=== PATIENT | female | born 1950 | race Caucasian/White ===

== ENCOUNTER → 2017-09-05 | Outpatient (CLI) | payer MEDICARE, MEDICAID ==
[~2017-09-05] MED LIST: ACET500T68 PO; ALBU2.5V36 INH; ALBU5SOL17 NEB; ALBU8.5H IH; ALEN70TA43 PO; AMIT100T53 PO; AMIT150T21 PO; AMIT75TA42 PO; ASPI-1471 PO; ASPI-757 PO; ATOR-1 PO; AZIT-17 PO; BACI1TAB2 PO; BUPR-124 PO; BUPR-126 PO; CAR350 PO; CHOL500025 PO; CIPR-214; CIPR-344 PO; CLOB15OI16 TP; DEXL60CA6 PO; ESCI20TA38 PO; ESOM20CA31 PO; ESOM40CA42 PO; ESTR-26 PO; FLU180SY9 IM; FLU45SYR25 IM ONLY; FLUT1BLS3 PO; FLUT1DIS28 IH; FURO20TA19 PO; GUAI600T57 PO; HYDR-2966 PO; HYDR-319 PO; HYDR2TAB4 PO; HYDR2TAB74 PO; HYDR453.8 TP; IBUP1TAB PO; IBUP600T22 PO; IBUP800T37 PO; KETO120S13 TP; LEV125 PO; LEV137 PO; LEVO-3 PO; LEVO150T78 PO; LEVO500T83 PO; LEVO88TA45 PO; LINA145C PO; LOR1 PO; LORA-629 PO; LORA-630 PO; METH4TAB66 PO; MORP-1 PO; ONDA4TAB PO; OXYC5CAP21 PO; OXYC5TAB38 PO; OXYGENHOME INH; PREG300C14 PO; PREG75CA61 PO; PROM-110 PO; RANI-324 PO; SULF-198 PO; TAPE50TA10 PO; TIZA4CAP6 PO; TRIA15OI20 TP; VALE445C4 PO; [UNRECOGNIZED DRUG - CODE]; [UNRECOGNIZED DRUG - CODE] PO
[2017-09-05 11:35] LABS: PLATELET COUNT, AUTOMATED 307 K/uL (150-450)
--- NOTE | 2017-09-05 14:29 | RADIOLOGY IMAGING REPORT ---
FACILITY: [facility] PATIENT NAME: Shantell Barnes : 1950 MR: [id number] V: [id number] EXAM DATE: ORDERING PHYSICIAN: JOANN BOSTON TECHNOLOGIST: Location[place] [facility] [place] Patient: Shantell Barnes : 1950 Visit/Account:[id number] Date of Sevice: 09/05/2017 Exam type: CHEST PA AND LAT History: Contrast of breath, follow up bronchitis Comparison: April 22, 2017. And September 03, 2016 Findings: Chronic scarring in the lung bases again noted. There is however increased linear stranding now seen in the right middle lobe worrisome for atelectasis and or developing infiltrate. There is no eviden ce of pleural effusions. The cardiac silhouette is normal in size. Postsurgical changes lower cervi lisbeth spine. IMPRESSION: 1. Right basilar scarring similar to the prior study Increasing linear stranding the right middle lobe which may represent atelectasis and or developing i nfiltrate. Report Dictated By: Karlee Mandujano MD at 09/05/2017 2:24 PM Report E-Signed By: Karlee Mandujano MD at 09/05/2017 2:26 PM WSN:[id number]
== END ==
LOC: LAB 10:58
PROVIDERS: ATTEND Emergency Medicine
DX: J98.4 Other disorders of lung (principal); R05 Cough; R41.0 Disorientation, unspecified; E55.9 Vitamin D deficiency, unspecified
CPT/HCPCS: 36415; 71046; 81001; 82040; 82247; 82306; 82310; 82374; 82435; 82565; 82947; 84075; 84132; 84155; 84295; 84443; 84450; 84460; 84520; 85025

== ENCOUNTER → 2017-10-04 | Outpatient (CLI) | payer MEDICARE, MEDICAID ==
[~2017-10-04] MED LIST changes: +BUPR300T56 PO; +HYDR25CA13 PO; +IBUP-56 PO; +MULT-865 PO
--- NOTE | 2017-10-04 16:35 | RADIOLOGY IMAGING REPORT ---
FACILITY: [facility] PATIENT NAME: Shantell Barnes : 1950 MR: [id number] V: [id number] EXAM DATE: ORDERING PHYSICIAN: JOANN BOSTON TECHNOLOGIST: [place] [facility] [place] Patient: Shantell Barnes : 1950 Visit/Account:[id number] Date of Sevice: 10/04/2017 Examination: MR brain without contrast History: Memory loss Comparison: Head CT April 16, 2017 Technique: Multiplane MR imaging was performed through the brain without contrast. Findings: Diffusion: None Ventricles: Normal Midline shift: None Extraaxial fluid: None. Midline craniocervical structures: Normal Parenchyma: Greater than 10 scattered white matter high signal foci. Mild patchy high signal in the ashlee. Vascular flow voids: Normal Orbits and paranasal sinuses: Normal Impression: 1. Mild chronic small vessel ischemic change. 2. Otherwise normal brain MR. Report Dictated By: Galindo Vogel MD at 10/04/2017 4:22 PM Report E-Signed By: Galindo Vogel MD at 10/04/2017 4:32 PM WSN:[id number]
== END ==
LOC: MRI 01:22
PROVIDERS: ATTEND Emergency Medicine
DX: I67.82 Cerebral ischemia (principal)
CPT/HCPCS: 70551

== ENCOUNTER → 2017-10-10 | Outpatient (REF) | payer MEDICARE, MEDICAID ==
[~2017-10-10] MED LIST changes: +MEMA1TAB2 PO
== END ==
LOC: ZZSENDIN 14:47
PROVIDERS: ATTEND Family Medicine
DX: R82.90 Unspecified abnormal findings in urine (principal)
CPT/HCPCS: 81001

== ENCOUNTER 2018-02-25 16:51 | Emergency (ER) | payer MEDICARE, MEDICAID ==
[~2018-02-25 16:51] MED LIST changes: +DEN60I SUBQ; +DONE5TAB36 PO; +HYDR-4225 PO; +HYDR4TAB59 PO; +MEMA5TAB14 PO; +MONT10TA PO; +POLY17PO25 PO; -RANI-324 PO; +RANI-366 PO
[2018-02-25 16:54] VITALS: BP 109/69
--- NOTE | 2018-02-25 17:20 | ER Report ---
History and Physical Time Seen By MD: 17:14 Hx. of Stated Complaint: FALL 2 DAYS - UNABLE TO BEAR WEIGHT ON LEFT FOOT/ANKLE. HPI/ROS CHIEF COMPLAINT: ankle injury HISTORY OF PRESENT ILLNESS: This is a 67 year old female. She got her left foot/ ankle caught yesterday and twisted it. Can not bear weight since the injury. Swelling and bruising. Normal sensation and can move the foot and toes, but with pain. Pain throughout the foot and ankle. Allergies: Coded Allergies: amoxicillin (Verified Allergy, Mild, 02/25/18) Home Meds Active Scripts Pregabalin (LYRICA) 300 Mg Capsule, 1 CAP PO BID, #180 CAPSULE 0 Refills Prov:SHAMEKA JEFFERSON MD 01/09/18 Montelukast Sodium (SINGULAIR) 10 Mg Tablet, 1 TAB PO QDAY, #30 TAB 11 Refills Prov:JOANN BOSTON MD 12/28/17 Levothyroxine Sodium (LEVOTHYROXINE SODIUM) 88 Mcg Tablet, 1 TAB PO DAILY, #90 TAB 4 Refills Prov:JOANN BOSTON MD 09/05/17 Ketoconazole (KETOCONAZOLE) 120 Ml Shampoo, 1 APPLIC TP DAILY for 30 Days, #1 TUBE 2 Refills Prov:JOSE J ROBERT 07/21/17 Hydrocortisone 2.5% Oint (HYDROCORTISONE 2.5% OINT) 453.6 Gm Oint...g., 1 APPLIC TP BID for 30 Days, #30 GM 2 Refills Apply to face and ears twice a day. Prov:JOSE J ROBERT 07/21/17 Clobetasol Propionate (CLOBETASOL PROPIONATE) 15 Gm Oint...g., 1 APPLIC TP BID for 30 Days, #30 GM 2 Refills Pt to apply to hands twice a day. Prov:JOSE J ROBERT 07/21/17 Albuterol Sulfate 0.083% (ALBUTEROL SULFATE 0.083%) 2.5 Mg/3 Ml Vial.neb, 2.5 MG INH 3-4XD, #120 VIAL 5 Refills Prov:JOANN BOSTON MD 06/27/17 Esomeprazole Magnesium (NEXIUM) 40 Mg Capsule.dr, 1 CAP PO QDAY, #90 CAP 3 Refills Prov:JOANN BOSTON MD 06/27/17 Albuterol Sulfate 90 Mcg/Act (PROAIR HFA 90 MCG/ACT) 8.5 Gm Hfa.aer.ad, 1-2 PUFF IH 3-4XD, #3 INHALER 3 Refills Prov:JOANN BOSTON MD 06/27/17 Fluticasone/Vilanterol (Breo Ellipta 200-25 Mcg INH) 1 Each Blst.w.dev, 1 PUFF PO QDAY, #3 INHALER 3 Refills Prov:JOANN BOSTON MD 06/27/17 Guaifenesin (MUCINEX) 600 Mg Tablet.er, 600 MG PO BID Y for CONGESTION, #180 TAB 3 Refills Prov:JOANN BOSTON MD 06/27/17 Tizanidine Hcl (ZANAFLEX) 4 Mg Capsule, 1 CAP PO TID Y for PAIN for 14 Days, # 28 CAPSULE 0 Refills Prov:JOANN BOSTON MD 05/27/17 Reported Medications Polyethylene Glycol 3350 (MIRALAX) 17 Gm Powd.pack, 17 GM PO DAILY, PKT 01/27/18 Linaclotide (LINZESS) 145 Mcg Capsule, 145 MCG PO DAILY, CAPSULE 01/27/18 Hydromorphone Hcl (HYDROMORPHONE HCL) 4 Mg Tablet, 0.5 TAB PO DAILY daily at noon 01/27/18 Hydromorphone Hcl (HYDROMORPHONE HCL) 4 Mg Tablet, 4 MG PO BID 01/27/18 Hydroxyzine Hcl (HYDROXYZINE HCL) 25 Mg Tablet, 25 MG PO TID 01/27/18 Amitriptyline Hcl (AMITRIPTYLINE HCL) 75 Mg Tablet, 75 MG PO QHS, #5 TAB 01/27/18 Aspirin (ASPIR 81) 81 Mg Tablet.dr, 1 TAB PO DAILY, TAB 01/27/18 Multivitamin (DAILY MULTIPLE VITAMIN) 1 Each Tablet, 1 EACH PO DAILY 09/27/17 Ibuprofen (IBUPROFEN) 200 Mg Tablet, 2 TAB PO QID Y for PRN, TAB 09/27/17 Bupropion Hcl (BUPROPION XL) 300 Mg Tab.er.24h, 1 TAB PO DAILY, #10 TAB 09/27/17 Bacillus Coagulans (Digestive Advantage) 250 Million Cell Tab.chew, 1 TAB PO PRN 12/28/16 Cholecalciferol (Vitamin D3) (VITAMIN D3) 5,000 Unit Tablet, 1 TAB PO DAILY 12/28/16 Loratadine (LORATADINE) 10 Mg Tablet, 1 TAB PO DAILY 12/28/16 Oxygen (OXYGEN) Inha, 2.5 L INH PRN, L 04/29/16 Reviewed Nurses Notes: Yes Hx Smoking: Yes (1/2-1PPD) Smoking Status: Former Smoker Exposure to Second Hand Smoke?: Yes Hx Substance Use Disorder: No Hx Alcohol Use: Yes Constitutional Vital Sign - Last 24 Hours 02/25/18 16:54 Temp 97.2 Pulse 76 Resp 16 B/P (MAP) 109/69 Pulse Ox 92 O2 Delivery Nasal Cannula Physical Exam General appearance: Patient is alert. No acute distress. Musculoskeletal: Left foot and ankle shows swelling in the ankle around the malleoli and into the forefoot. There is no obvious deformity. Bruising in the area of swelling. Medial malleolus and Lateral malleolus are both tender to palpation. Head of the fifth metatarsal is nontender. No tenderness with squeeze of the lower leg. There is some pain in the forefoot as well. Weight bearing: Weight bearing not tested due to pain. Neurologic: The patient has normal sensation distal to the injury. Active range of motion is intact, but with pain. Cardiovascular: Normal dorsalis pedis and posterior tibialis pulses. Normal capillary refill. Skin: No rash. No skin breakdown. DIFFERENTIAL DIAGNOSIS: After history and physical exam differential diagnosis was considered for ankle and foot injury including sprain, fracture, dislocation and soft tissue injury. Medical Decision Making EKG/Imaging Imaging EXAMINATION: Left ankle 3 views Left foot 3 views HISTORY: Foot/ankle injury. Twisted. COMPARISON: None. FINDINGS: Bones of the left ankle demonstrate normal alignment, without evidence of fracture or dislocation. Joint space is preserved along the ankle mortise. Soft tissue swelling surrounds the left ankle, greatest overlying the lateral malleolus. No evidence of acute fracture or dislocation in the left foot. Normal alignment. Moderate degenerative changes at the first MTP joint with joint space narrowing and osteophyte formation. There are mild scattered degenerative changes at several IP joints. Osteopenia. IMPRESSION: 1. No acute osseous findings in the left ankle or foot. 2. Moderate degenerative changes at the first MTP joint. 3. Lateral soft tissue swelling at the ankle. Report Dictated By: Daniel Martinez MD at 02/25/2018 5:57 PM ED Course/Re-evaluation ED Course No fracture; reviewed results with the patient. Conservative management discussed. See instructions below. Decision to Disposition Date: Feb 25, 2018 Decision to Disposition Time: 18:21 Depart Departure Latest Vital Signs Vital Signs Date Time Temp Pulse Resp B/P (MAP) Pulse Ox O2 Delivery O2 Flow Rate FiO2 02/25/18 16:54 97.2 76 16 109/69 92 Nasal Cannula Impression: Primary Impression: Ankle sprain Condition: Improved Disposition: HOME OR SELF-CARE Referrals: JOANN BOSTON MD (PCP) Patient Instructions: Ankle Sprain (ED) Additional Instructions: Keep using your regular pain medications Apply ice 20 minutes every 1-2 hours while awake. An ANIKET wrap can be used for compression to help reduce swelling. Rest the injured area, keep it elevated while at rest. Begin gentle range of motion exercises. Problem Qualifiers Primary Impression: Ankle sprain Encounter type: initial encounter Involved ligament of ankle: unspecified ligament Laterality: left Qualified Codes: S93.402A - Sprain of unspecified ligament of left ankle, initial encounter DONNA ZAMBRANO MD Feb 25, 2018 17:20
--- NOTE | 2018-02-25 18:05 | RADIOLOGY IMAGING REPORT ---
FACILITY: [facility] PATIENT NAME: Shantell Barnes : 1950 MR: [id number] V: [id number] EXAM DATE: ORDERING PHYSICIAN: DONNA ZAMBRANO TECHNOLOGIST: Location: [facility] Patient: Shantell Barnes : 1950 Visit/Account:[id number] Date of Sevice: 02/25/2018 EXAMINATION: Left ankle 3 views Left foot 3 views HISTORY: Foot/ankle injury. Twisted. COMPARISON: None. FINDINGS: Bones of the left ankle demonstrate normal alignment, without evidence of fracture or dislocation. Chloe int space is preserved along the ankle mortise. Soft tissue swelling surrounds the left ankle, greate st overlying the lateral malleolus. No evidence of acute fracture or dislocation in the left foot. Normal alignment. Moderate degenerativ e changes at the first MTP joint with joint space narrowing and osteophyte formation. There are mild scattered degenerative changes at several IP joints. Osteopenia. IMPRESSION: 1. No acute osseous findings in the left ankle or foot. 2. Moderate degenerative changes at the first MTP joint. 3. Lateral soft tissue swelling at the ankle. Report Dictated By: Daniel Martinez MD at 02/25/2018 5:57 PM Report E-Signed By: Daniel Martinez MD at 02/25/2018 6:01 PM WSN:[id number]
--- NOTE | 2018-02-25 18:05 | RADIOLOGY IMAGING REPORT ---
FACILITY: [facility] - [place], [place] PATIENT NAME: Shantell Barnes : 1950 MR: [id number] V: [id number] EXAM DATE: ORDERING PHYSICIAN: DONNA ZAMBRANO TECHNOLOGIST: Location: [facility] - [place] Patient: Shantell Barnes : 1950 Visit/Account:[id number] Date of Sevice: 02/25/2018 EXAMINATION: Left ankle 3 views Left foot 3 views HISTORY: Foot/ankle injury. Twisted. COMPARISON: None. FINDINGS: Bones of the left ankle demonstrate normal alignment, without evidence of fracture or dislocation. Chloe int space is preserved along the ankle mortise. Soft tissue swelling surrounds the left ankle, greate st overlying the lateral malleolus. No evidence of acute fracture or dislocation in the left foot. Normal alignment. Moderate degenerativ e changes at the first MTP joint with joint space narrowing and osteophyte formation. There are mild scattered degenerative changes at several IP joints. Osteopenia. IMPRESSION: 1. No acute osseous findings in the left ankle or foot. 2. Moderate degenerative changes at the first MTP joint. 3. Lateral soft tissue swelling at the ankle. Report Dictated By: Daniel Martinez MD at 02/25/2018 5:57 PM Report E-Signed By: Daniel Martinez MD at 02/25/2018 6:01 PM WSN:[id number]
== END 2018-02-25 18:30 | disposition home or self-care (01) ==
LOC: ER 17:23
DX: S93.402A Sprain of unspecified ligament of left ankle, initial encounter (principal); X50.1XXA Overexertion from prolonged static or awkward postures, initial encounter; Z87.891 Personal history of nicotine dependence; Z79.899 Other long term (current) drug therapy
CPT/HCPCS: 99283

== ENCOUNTER → 2018-06-05 | Outpatient (CLI) | payer MEDICARE, MEDICAID ==
[~2018-06-05] MED LIST changes: +CLOT15CR63 TP; -KETO120S13 TP; +KETO120S14 TP
== END ==
LOC: MRI 04-27 01:07 → LAB 14:54
PROVIDERS: ATTEND Emergency Medicine
DX: E03.9 Hypothyroidism, unspecified (principal)
CPT/HCPCS: 36415; 84443; 86140

== ENCOUNTER 2018-06-08 21:33 | Emergency (ER) | payer MEDICARE, MEDICAID ==
[2018-06-08 21:39] VITALS: BP 110/99
--- NOTE | 2018-06-08 21:41 | ER Report ---
History and Physical Time Seen By MD: 21:41 HPI/ROS CHIEF COMPLAINT: left middle finger lac HISTORY OF PRESENT ILLNESS: Pt was getting a steak knife and accidentally cut her left middle finger lateral to her pip joint. 1cm flap lac. Pt has been using a towel to hold pressure. Pt states the wound bleeds intermittently with movement of the finger. No numbness or pain with movement. Pt daughter brought her here for possible sutures. REVIEW OF SYSTEMS: Skin: + laceration Musculoskeletal: no pain, full range of motion of hands Neuro: no numbness. Allergies: Coded Allergies: amoxicillin (Verified Allergy, Mild, 06/08/18) Home Meds Active Scripts Sulfamethoxazole/Trimet 800-160 Mg Tab (BACTRIM DS TABLET) 1 Each Tablet, 1 TAB PO Q12H, #20 TAB Prov:JOANN BOSTON MD 06/05/18 Clotrimazole (CLOTRIMAZOLE) 15 Gm Cream..g., 15 GM TP BID, #1 TUBE Prov:JOANN BOSTON MD 06/05/18 Pregabalin (LYRICA) 300 Mg Capsule, 1 CAP PO BID, #180 CAPSULE 0 Refills Prov:JOANN BOSTON MD 04/10/18 Esomeprazole Magnesium (NEXIUM) 40 Mg Capsule.dr, 1 CAP PO QDAY, #90 CAP 3 Refills Prov:JOANN BOSTON MD 04/07/18 Montelukast Sodium (SINGULAIR) 10 Mg Tablet, 1 TAB PO QDAY, #30 TAB 11 Refills Prov:JOANN BOSTON MD 12/28/17 Levothyroxine Sodium (LEVOTHYROXINE SODIUM) 88 Mcg Tablet, 1 TAB PO DAILY, #90 TAB 4 Refills Prov:JOANN BOSTON MD 09/05/17 Ketoconazole (KETOCONAZOLE) 120 Ml Shampoo, 1 APPLIC TP DAILY for 30 Days, #1 TUBE 2 Refills Prov:JOSE J ROBERT 07/21/17 Hydrocortisone 2.5% Oint (HYDROCORTISONE 2.5% OINT) 453.6 Gm Oint...g., 1 APPLIC TP BID for 30 Days, #30 GM 2 Refills Apply to face and ears twice a day. Prov:JOSE J ROBERT 07/21/17 Clobetasol Propionate (CLOBETASOL PROPIONATE) 15 Gm Oint...g., 1 APPLIC TP BID for 30 Days, #30 GM 2 Refills Pt to apply to hands twice a day. Prov:JOHNANNIKAJOSE J NPC 07/21/17 Albuterol Sulfate 0.083% (ALBUTEROL SULFATE 0.083%) 2.5 Mg/3 Ml Vial.neb, 2.5 MG INH 3-4XD, #120 VIAL 5 Refills Prov:JOANN BOSTON MD 06/27/17 Albuterol Sulfate 90 Mcg/Act (PROAIR HFA 90 MCG/ACT) 8.5 Gm Hfa.aer.ad, 1-2 PUFF IH 3-4XD, #3 INHALER 3 Refills Prov:JOANN BOSTON MD 06/27/17 Fluticasone/Vilanterol (Breo Ellipta 200-25 Mcg INH) 1 Each Blst.w.dev, 1 PUFF PO QDAY, #3 INHALER 3 Refills Prov:JOANN BOSTON MD 06/27/17 Guaifenesin (MUCINEX) 600 Mg Tablet.er, 600 MG PO BID PRN for CONGESTION, #180 TAB 3 Refills Prov:JOANN BOSTON MD 06/27/17 Tizanidine Hcl (ZANAFLEX) 4 Mg Capsule, 1 CAP PO TID PRN for PAIN for 14 Days, #28 CAPSULE 0 Refills Prov:JOANN BOSTON MD 05/27/17 Reported Medications Polyethylene Glycol 3350 (MIRALAX) 17 Gm Powd.pack, 17 GM PO DAILY, PKT 01/27/18 Linaclotide (LINZESS) 145 Mcg Capsule, 145 MCG PO DAILY, CAPSULE 01/27/18 Hydromorphone Hcl (HYDROMORPHONE HCL) 4 Mg Tablet, 0.5 TAB PO DAILY daily at noon 01/27/18 Hydromorphone Hcl (HYDROMORPHONE HCL) 4 Mg Tablet, 4 MG PO BID 01/27/18 Hydroxyzine Hcl (HYDROXYZINE HCL) 25 Mg Tablet, 25 MG PO TID 01/27/18 Amitriptyline Hcl (AMITRIPTYLINE HCL) 75 Mg Tablet, 75 MG PO QHS, #5 TAB 01/27/18 Aspirin (ASPIR 81) 81 Mg Tablet.dr, 1 TAB PO DAILY, TAB 01/27/18 Multivitamin (DAILY MULTIPLE VITAMIN) 1 Each Tablet, 1 EACH PO DAILY 09/27/17 Ibuprofen (IBUPROFEN) 200 Mg Tablet, 2 TAB PO QID PRN for PRN, TAB 09/27/17 Bupropion Hcl (BUPROPION XL) 300 Mg Tab.er.24h, 1 TAB PO DAILY, #10 TAB 09/27/17 Bacillus Coagulans (Digestive Advantage) 250 Million Cell Tab.chew, 1 TAB PO PRN 12/28/16 Cholecalciferol (Vitamin D3) (VITAMIN D3) 5,000 Unit Tablet, 1 TAB PO DAILY 12/28/16 Loratadine (LORATADINE) 10 Mg Tablet, 1 TAB PO DAILY 12/28/16 Oxygen (OXYGEN) Inha, 2.5 L INH PRN, L 04/29/16 Past Medical/Surgical History Pmhx: pud, lacunar infarctions, copd, sleep apnea, fibromyalgia, back pain, OA, scoliosis, eczema, Osteoarthrits Pshx: c-s, cervical fusion, b/l total knee replacements. Reviewed Nurses Notes: Yes Old Medical Records Reviewed: Yes Hx Smoking: Yes (1/2-1PPD) Smoking Status: Former Smoker Exposure to Second Hand Smoke?: Yes Hx Substance Use Disorder: No Hx Alcohol Use: Yes Constitutional Vital Sign - Last 24 Hours 06/08/18 21:39 Temp 98.9 Pulse 73 Resp 16 B/P (MAP) 110/99 Pulse Ox 94 O2 Delivery Nasal Cannula Physical Exam General appearance: alert no distress Right hand: There is no significant swelling. There is no obvious deformity to the hand. There is moderate tenderness of the 5th metacarpal. There is no snuff box tenderness. Skin: + 1cm laceration lateral to her pip joint on middle finger Neurologic exam: The patient has normal sensation distal to the injury. Tendon function is intact. Vascular exam: Normal pulses and capillary refill in the fingers DIFFERENTIAL DIAGNOSIS: After history and physical exam differential diagnosis was considered for laceration Medical Decision Making ED Course/Re-evaluation ED Course Procedure: Laceration repair. Verbal consent was obtained from the patient. The 1cm laceration on the lateral to pip joing on middle finger on left hand. digital block using lidocaine 1% 1ml. The wound was scrubbed, draped and explored to its base with a gloved finger. There were no deep structures involved. No tendon injury was identified. The wound was repaired with ethlon 5.0 2 intermittent sutures. The wound repair was simple. The procedure was performed by myself. Decision to Disposition Date: Jun 08, 2018 Decision to Disposition Time: 22:11 Depart Departure Latest Vital Signs Vital Signs Date Time Temp Pulse Resp B/P (MAP) Pulse Ox O2 Delivery O2 Flow Rate FiO2 06/08/18 21:39 98.9 73 16 110/99 94 Nasal Cannula Impression: Primary Impression: Finger laceration Condition: Improved Disposition: HOME OR SELF-CARE Referrals: JOANN BOSTON MD (PCP) Patient Instructions: Hand Laceration Additional Instructions: You have two sutures which need to be out in approximately 10 days. Keep area clean. Bacitracin (neosporin) to your sutures daily You may shower but no submerging your finger in dirty water (no washing dishes). Return for any concerns. Problem Qualifiers Primary Impression: Finger laceration Encounter type: initial encounter Finger: middle finger Damage to nail status: without damage Foreign body presence: without foreign body Laterality: left Qualified Codes: S61.213A - Laceration without foreign body of left middle finger without damage to nail, initial encounter TAMIA OGDEN DO Jun 08, 2018 21:41
[2018-06-08] MEDS ORDERED: DIPHTH/TETANUS/ACEL. PERTUSSIS IM ONLY ONE (22:00)
[2018-06-08] MEDS ORDERED: BACITRACIN OINT 0.9 GM PKT TP ONE (22:10)
== END 2018-06-08 22:28 | disposition home or self-care (01) ==
LOC: ER 21:43
DX: S61.213A Laceration without foreign body of left middle finger without damage to nail, initial encounter (principal); W26.0XXA Contact with knife, initial encounter
CPT/HCPCS: 90471; 90715; 99283

== ENCOUNTER 2018-09-22 15:26 | Emergency (ER) | payer MEDICARE, MEDICAID ==
--- NOTE | 2018-09-22 15:38 | ER Report ---
History and Physical Time Seen By MD: 15:38 HPI/ROS CHIEF COMPLAINT: Difficulty moving, twitching, memory difficulties. HISTORY OF PRESENT ILLNESS: Patient is a 67-year-old female here with complaints of extremity tremors, intermittent difficulty ambulating, memory difficulties which have been present since yesterday morning. Patient reports that she has had similar episodes in the past and that this was been persistent since yesterday morning but recurring over the past several days. Patient also complains of a rash in her groin which is erythematous, pruritic. Patient is hemodynamically stable at time of evaluation, moving all extremities spontaneously. Patient also does have a possible history of a recent fall which she is unable to elaborate about. REVIEW OF SYSTEMS: Constitutional: No fever, no chills. Eyes: No discharge. ENT: No sore throat. Cardiovascular: No chest pain, no palpitations. Respiratory: No cough, no shortness of breath. Gastrointestinal: No abdominal pain, no vomiting. Genitourinary: + burning with urination, denies hematuria Musculoskeletal: No back pain. Skin: + erythematous groin rash Neurological: No headache, + intermittent memory deficits, extremity tremors Allergies: Coded Allergies: amoxicillin (Verified Allergy, Mild, 09/22/18) Home Meds Active Scripts Fluticasone/Vilanterol (Breo Ellipta 200-25 Mcg INH) 1 Each Blst.w.dev, 1 PUFF PO QDAY, #3 INHALER 3 Refills Prov:JOANN BOSTON MD 10/02/18 Esomeprazole Magnesium (NEXIUM) 40 Mg Capsule.dr, 1 CAP PO QDAY, #90 CAP 3 Refills Prov:JOANN BOSTON MD 04/07/18 Montelukast Sodium (SINGULAIR) 10 Mg Tablet, 1 TAB PO QDAY, #30 TAB 11 Refills Prov:JOANN BOSTON MD 12/28/17 Levothyroxine Sodium (LEVOTHYROXINE SODIUM) 88 Mcg Tablet, 1 TAB PO DAILY, #90 TAB 4 Refills Prov:JOANN BOSTON MD 09/05/17 Guaifenesin (MUCINEX) 600 Mg Tablet.er, 600 MG PO BID PRN for CONGESTION, #180 TAB 3 Refills Prov:JOANN BOSTON MD 06/27/17 Reported Medications Hydromorphone Hcl (HYDROMORPHONE HCL) 2 Mg Tablet, 2 MG PO Q8H 10/03/18 Amitriptyline Hcl (AMITRIPTYLINE HCL) 100 Mg Tablet, 100 MG PO QHS, TAB 10/03/18 Diclofenac Sodium 1% Gel (VOLTAREN 1% GEL) 100 Gm Gel..gram., 2 G TOP BID 10/03/18 Pregabalin (LYRICA) 300 Mg Capsule, 300 MG PO BID, CAPSULE 07/10/18 Polyethylene Glycol 3350 (MIRALAX) 17 Gm Powd.pack, 17 GM PO DAILY, PKT 01/27/18 Linaclotide (LINZESS) 145 Mcg Capsule, 145 MCG PO DAILY, CAPSULE 01/27/18 Aspirin (ASPIR 81) 81 Mg Tablet.dr, 1 TAB PO DAILY, TAB 01/27/18 Multivitamin (DAILY MULTIPLE VITAMIN) 1 Each Tablet, 1 EACH PO DAILY 09/27/17 Ibuprofen (IBUPROFEN) 200 Mg Tablet, 2 TAB PO QID PRN for PRN, TAB 09/27/17 Bupropion Hcl (BUPROPION XL) 300 Mg Tab.er.24h, 300 MG PO BID, #10 TAB 09/27/17 Bacillus Coagulans (Digestive Advantage) 250 Million Cell Tab.chew, 1 TAB PO PRN 12/28/16 Cholecalciferol (Vitamin D3) (VITAMIN D3) 5,000 Unit Tablet, 1 TAB PO DAILY 12/28/16 Loratadine (LORATADINE) 10 Mg Tablet, 1 TAB PO DAILY 12/28/16 Oxygen (OXYGEN) Inha, 2.5 L INH PRN, L 04/29/16 Discontinued Reported Medications Hydromorphone Hcl (HYDROMORPHONE HCL) 4 Mg Tablet, 0.5 TAB PO DAILY daily at noon 01/27/18 Hydromorphone Hcl (HYDROMORPHONE HCL) 4 Mg Tablet, 4 MG PO BID 01/27/18 Amitriptyline Hcl (AMITRIPTYLINE HCL) 75 Mg Tablet, 75 MG PO QHS, #5 TAB 01/27/18 Discontinued Scripts Clotrimazole (CLOTRIMAZOLE) 15 Gm Cream..g., 15 GM TP BID, #1 TUBE Prov:JOANN BOSTON MD 06/20/18 Ketoconazole (KETOCONAZOLE) 120 Ml Shampoo, 1 APPLIC TP DAILY for 30 Days, #1 TUBE 2 Refills Prov:JOSE J ROBERT NPC 07/21/17 Hydrocortisone 2.5% Oint (HYDROCORTISONE 2.5% OINT) 453.6 Gm Oint...g., 1 APPLIC TP BID for 30 Days, #30 GM 2 Refills Apply to face and ears twice a day. Prov:JOSE J ROBERT NPC 07/21/17 Clobetasol Propionate (CLOBETASOL PROPIONATE) 15 Gm Oint...g., 1 APPLIC TP BID for 30 Days, #30 GM 2 Refills Pt to apply to hands twice a day. Prov:JOSE J ROBERT NPC 07/21/17 Albuterol Sulfate 0.083% (ALBUTEROL SULFATE 0.083%) 2.5 Mg/3 Ml Vial.neb, 2.5 MG INH 3-4XD, #120 VIAL 5 Refills Prov:JOANN BOSTON MD 06/27/17 Albuterol Sulfate 90 Mcg/Act (PROAIR HFA 90 MCG/ACT) 8.5 Gm Hfa.aer.ad, 1-2 PUFF IH 3-4XD, #3 INHALER 3 Refills Prov:JOANN BOSTON MD 06/27/17 Hx Smoking: Yes (1/2-1PPD) Smoking Status: Former Smoker Exposure to Second Hand Smoke?: Yes Hx Substance Use Disorder: No Hx Alcohol Use: Yes Constitutional Physical Exam General Appearance: The patient is alert, has no immediate need for airway protection and no signs of toxicity. NAD Eyes: Pupils equal and round no pallor or injection. ENT, Mouth: Mucous membranes are moist. Respiratory: There are no retractions, lungs are clear to auscultation. Cardiovascular: Regular rate and rhythm. [ ] Gastrointestinal: Abdomen is soft and non tender, no masses, bowel sounds normal. Neurological: + extremity intention tremors, AAO x 3 Skin: + erythematous groin rash Musculoskeletal: Neck is supple non tender. Extremities are nontender, nonswollen and have full range of motion. DIFFERENTIAL DIAGNOSIS: After history and physical exam differential diagnosis was considered for dehydration, oxygen noncompliance, electrolyte abnormality, urinary tract infection, viral syndrome, delirium, dementia, trauma, concussion Medical Decision Making Data Points Laboratory Hematology Test 09/22/18 16:09 09/22/18 16:21 Red Blood Count 4.05 M/uL (4.17-5.56) Mean Corpuscular Volume 92.2 fL (80.0-96.0) Mean Corpuscular Hemoglobin 31.1 pg (26.0-33.0) Mean Corpuscular Hemoglobin Concent 33.7 g/dL (32.0-36.0) Red Cell Distribution Width 13.6 % (11.5-14.5) Mean Platelet Volume 8.2 fL (7.2-11.1) Neutrophils (%) (Auto) 88.1 % (39.4-72.5) Lymphocytes (%) (Auto) 4.8 % (17.6-49.6) Monocytes (%) (Auto) 4.8 % (4.1-12.4) Eosinophils (%) (Auto) 0.8 % (0.4-6.7) Basophils (%) (Auto) 1.5 % (0.3-1.4) Nucleated RBC Relative Count (auto) 0.1 /100WBC Neutrophils # (Auto) 7.0 K/uL (2.0-7.4) Lymphocytes # (Auto) 0.4 K/uL (1.3-3.6) Monocytes # (Auto) 0.4 K/uL (0.3-1.0) Eosinophils # (Auto) 0.1 K/uL (0.0-0.5) Basophils # (Auto) 0.1 K/uL (0.0-0.1) Nucleated RBC Absolute Count (auto) 0.00 K/uL Blood Gas Patient Temperature 97.7 DEGREES Venous Blood pH 7.28 (7.31-7.41) Venous Blood Partial Pressure CO2 49 mmHg Venous Blood Partial Pressure O2 61 mmHg Venous Blood HCO3 23 mmol/L Venous Blood Oxygen Saturation 88 % Venous Blood Base Excess -4 mmol/L Carboxyhemoglobin 2.9 % (< 5.0) Oxygen Liters/Minute 3l Sodium Level 134 mmol/L (137-145) Potassium Level 4.5 mmol/L (3.5-5.0) Chloride Level 100 mmol/L (98-107) Carbon Dioxide Level 24 mmol/L (22-31) Blood Urea Nitrogen 18 mg/dl (7-18) Creatinine 1.00 mg/dl (0.52-1.04) Glomerular Filtration Rate Calc 55.1 Random Glucose 131 mg/dl (75-110) Calcium Level 9.2 mg/dl (8.4-10.2) Total Bilirubin 0.2 mg/dl (0.2-1.3) Aspartate Amino Transf (AST/SGOT) 20 U/L (0-35) Alanine Aminotransferase (ALT/SGPT) 26 U/L (0-56) Alkaline Phosphatase 69 U/L (0-126) Ammonia 12 UMOL/L (9-33) Total Protein 6.4 g/dl (6.3-8.2) Albumin 4.2 g/dl (3.5-5.0) Thyroid Stimulating Hormone (TSH) 3.30 uIU/ml (0.46-4.68) Serum Alcohol < 10 mg/dl Urine Color Yellow Urine Clarity Slightly-cloudy Urine pH 5.0 pH (4.8-9.5) Urine Specific [place] 1.016 Urine Protein Negative mg/dL (NEGATIVE) Urine Glucose (UA) Negative mg/dL (NEGATIVE) Urine Ketones Negative mg/dL (NEGATIVE) Urine Blood Negative (NEGATIVE) Urine Nitrite Negative (NEGATIVE) Urine Bilirubin Negative (NEGATIVE) Urine Urobilinogen Negative mg/dL (0.2-1.9) Urine Leukocyte Esterase Negative (NEGATIVE) Urine RBC None /HPF (0-2/HPF) Urine WBC <1 /HPF (0-5/HPF) Urine Squamous Epithelial Cells None /LPF (NONE-FEW) Urine Bacteria Negative /HPF (NONE-FEW) Urine Hyaline Casts Few /LPF (NONE-FEW) Urine Mucus None /HPF (NONE-FEW) Urine Opiates Screen Positive Urine Barbiturates Screen Negative Ur Tricyclic Antidepressants Screen Positive Urine Phencyclidine Screen Negative Urine Amphetamines Screen Negative Urine Benzodiazepines Screen Negative Urine Cocaine Screen Negative Urine Cannabinoids Screen Negative Chemistry Test 09/22/18 16:09 09/22/18 16:21 White Blood Count 7.9 k/uL (4.5-11.0) Red Blood Count 4.05 M/uL (4.17-5.56) Hemoglobin 12.6 g/dL (12.0-16.0) Hematocrit 37.3 % (34.0-47.0) Mean Corpuscular Volume 92.2 fL (80.0-96.0) Mean Corpuscular Hemoglobin 31.1 pg (26.0-33.0) Mean Corpuscular Hemoglobin Concent 33.7 g/dL (32.0-36.0) Red Cell Distribution Width 13.6 % (11.5-14.5) Platelet Count 197 K/uL (150-450) Mean Platelet Volume 8.2 fL (7.2-11.1) Neutrophils (%) (Auto) 88.1 % (39.4-72.5) Lymphocytes (%) (Auto) 4.8 % (17.6-49.6) Monocytes (%) (Auto) 4.8 % (4.1-12.4) Eosinophils (%) (Auto) 0.8 % (0.4-6.7) Basophils (%) (Auto) 1.5 % (0.3-1.4) Nucleated RBC Relative Count (auto) 0.1 /100WBC Neutrophils # (Auto) 7.0 K/uL (2.0-7.4) Lymphocytes # (Auto) 0.4 K/uL (1.3-3.6) Monocytes # (Auto) 0.4 K/uL (0.3-1.0) Eosinophils # (Auto) 0.1 K/uL (0.0-0.5) Basophils # (Auto) 0.1 K/uL (0.0-0.1) Nucleated RBC Absolute Count (auto) 0.00 K/uL Blood Gas Patient Temperature 97.7 DEGREES Venous Blood pH 7.28 (7.31-7.41) Venous Blood Partial Pressure CO2 49 mmHg Venous Blood Partial Pressure O2 61 mmHg Venous Blood HCO3 23 mmol/L Venous Blood Oxygen Saturation 88 % Venous Blood Base Excess -4 mmol/L Carboxyhemoglobin 2.9 % (< 5.0) Oxygen Liters/Minute 3l Glomerular Filtration Rate Calc 55.1 Calcium Level 9.2 mg/dl (8.4-10.2) Total Bilirubin 0.2 mg/dl (0.2-1.3) Aspartate Amino Transf (AST/SGOT) 20 U/L (0-35) Alanine Aminotransferase (ALT/SGPT) 26 U/L (0-56) Alkaline Phosphatase 69 U/L (0-126) Ammonia 12 UMOL/L (9-33) Total Protein 6.4 g/dl (6.3-8.2) Albumin 4.2 g/dl (3.5-5.0) Thyroid Stimulating Hormone (TSH) 3.30 uIU/ml (0.46-4.68) Serum Alcohol < 10 mg/dl Urine Color Yellow Urine Clarity Slightly-cloudy Urine pH 5.0 pH (4.8-9.5) Urine Specific [place] 1.016 Urine Protein Negative mg/dL (NEGATIVE) Urine Glucose (UA) Negative mg/dL (NEGATIVE) Urine Ketones Negative mg/dL (NEGATIVE) Urine Blood Negative (NEGATIVE) Urine Nitrite Negative (NEGATIVE) Urine Bilirubin Negative (NEGATIVE) Urine Urobilinogen Negative mg/dL (0.2-1.9) Urine Leukocyte Esterase Negative (NEGATIVE) Urine RBC None /HPF (0-2/HPF) Urine WBC <1 /HPF (0-5/HPF) Urine Squamous Epithelial Cells None /LPF (NONE-FEW) Urine Bacteria Negative /HPF (NONE-FEW) Urine Hyaline Casts Few /LPF (NONE-FEW) Urine Mucus None /HPF (NONE-FEW) Urine Opiates Screen Positive Urine Barbiturates Screen Negative Ur Tricyclic Antidepressants Screen Positive Urine Phencyclidine Screen Negative Urine Amphetamines Screen Negative Urine Benzodiazepines Screen Negative Urine Cocaine Screen Negative Urine Cannabinoids Screen Negative Toxicology Test 09/22/18 16:09 2 16:21 Serum Alcohol < 10 mg/dl Urine Opiates Screen Positive Urine Barbiturates Screen Negative Ur Tricyclic Antidepressants Screen Positive Urine Phencyclidine Screen Negative Urine Amphetamines Screen Negative Urine Benzodiazepines Screen Negative Urine Cocaine Screen Negative Urine Cannabinoids Screen Negative Urinalysis Test 09/22/18 16:21 Urine Color Yellow Urine Clarity Slightly-cloudy Urine pH 5.0 pH (4.8-9.5) Urine Specific [place] 1.016 Urine Protein Negative mg/dL (NEGATIVE) Urine Glucose (UA) Negative mg/dL (NEGATIVE) Urine Ketones Negative mg/dL (NEGATIVE) Urine Blood Negative (NEGATIVE) Urine Nitrite Negative (NEGATIVE) Urine Bilirubin Negative (NEGATIVE) Urine Urobilinogen Negative mg/dL (0.2-1.9) Urine Leukocyte Esterase Negative (NEGATIVE) Urine RBC None /HPF (0-2/HPF) Urine WBC <1 /HPF (0-5/HPF) Urine Squamous Epithelial Cells None /LPF (NONE-FEW) Urine Bacteria Negative /HPF (NONE-FEW) Urine Hyaline Casts Few /LPF (NONE-FEW) Urine Mucus None /HPF (NONE-FEW) EKG/Imaging Imaging Location: [facility] - [place] Patient: Shantell Barnes : 1950 Visit/Account:[id number] Date of Sevice: 09/22/2018 EXAMINATION: CT Head without intravenous contrast HISTORY: Difficulty moving. TECHNIQUE: Axial images were obtained from the skull base to the vertex without intravenous contrast. Sagittal and coronal reformatted images are also submit glenda. One of the following dose optimization techniques was utilized in the performance of this exam: Automated exposure control; adjustment of the mA and/or kV according to the patient's size; or use of an iterative reconstruction technique. Specific details can be referenced in the facility's radiology CT exam operational policy. COMPARISON: Brain MRI dated 10/04/2017. Head CT dated 04/16/2017. FINDINGS: Brain volume: Mild generalized volume loss. Ventricles: Negative. Acute ischemic changes: None. Hemorrhage: None. Masses / edema: None. Uriarte-white: Negative. White matter: Mild chronic microvascular ischemic changes. Vessels: Negative. Extra-axial: Negative. Calvarium / skull base: Negative. Visualized sinuses / orbits: Negative. IMPRESSION: No acute intracranial abnormality. Report Dictated By: Adarsh Harrison MD at 09/22/2018 5:27 PM Report E-Signed By: Adarsh Harrison MD at 09/22/2018 5:31 PM ED Course/Re-evaluation ED Course Patient is a 67-year-old female here with complaints of intermittent tremors, reports of possible fall, reports of possibly being noncompliant with her nocturnal oxygen. Patient reports that she has had similar episodes in the past which were attributed to hyponatremia and urinary tract infections. Symptoms have been persistent since yesterday morning. Labs were unremarkable, sodium level was at baseline. Urinalysis was noninfectious. Due to patient's report of possible recent fall, decision was made to obtain a CT scan of the head. There is no C-spine midline tenderness on examination. Patient's ABG, CBC, CMP, ammonia, urinalysis showed no acute findings. I updated the patient regarding these findings. CT imaging of the head showed no acute intracranial findings. I recommended the patient that she follows up with her PCP and consider possible follow-up with neurology to further discern the etiology of her tremor and intermittent instability. Patient was stable at time of discharge. Return precautions provided. Decision to Disposition Date: Sep 22, 2018 Decision to Disposition Time: 17:44 Depart Departure Latest Vital Signs Impression: Primary Impression: Tremor Additional Impression: Dementia Condition: Improved Disposition: HOME OR SELF-CARE Referrals: JOANN BOSTON MD (PCP) Patient Instructions: Fall Prevention for Older Adults (ED), Tremors (ED) Additional Instructions: Please follow up closely with her family doctor and consider following up with neurology for further evaluation of your tremors, difficulty ambulating and memory issues. Please return immediately if you develop worsening symptoms, change in mental status, inability keep down food or fluids, fevers, falls. Your CT scan of the head was stable and showed no bleeding or fractures. Your sodium level was found be 134 which is stable compared to prior lab findings. Your urinalysis showed no signs of infection today. Your other electrolytes were also found to be normal. You were given 200 mg of Fluconazole for treatment of yeast infection. Problem Qualifiers ALETHEA ZULETA DO Sep 22, 2018 15:38
[2018-09-22 16:19] LABS: PLATELET COUNT, AUTOMATED 197 K/uL (150-450)
[2018-09-22] MEDS ORDERED: FLUCONAZOLE 100 MG TAB PO ONE (17:00)
[2018-09-22 17:30] VITALS: BP 138/80
--- NOTE | 2018-09-22 17:36 | RADIOLOGY IMAGING REPORT ---
FACILITY: [facility] - [place] PATIENT NAME: Shantell Barnes : 1950 MR: [id number] V: [id number] EXAM DATE: ORDERING PHYSICIAN: ALETHEA ZULETA TECHNOLOGIST: Location: [facility] - [place] Patient: Shantell Barnes : 1950 Visit/Account:[id number] Date of Sevice: 09/22/2018 EXAMINATION: CT Head without intravenous contrast HISTORY: Difficulty moving. TECHNIQUE: Axial images were obtained from the skull base to the vertex without intravenous contrast . Sagittal and coronal reformatted images are also submitted. One of the following dose optimization techniques was utilized in the performance of this exam: Autom ated exposure control; adjustment of the mA and/or kV according to the patient's size; or use of an i terative reconstruction technique. Specific details can be referenced in the facility's radiology C T exam operational policy. COMPARISON: Brain MRI dated 10/04/2017. Head CT dated 04/16/2017. FINDINGS: Brain volume: Mild generalized volume loss. Ventricles: Negative. Acute ischemic changes: None. Hemorrhage: None. Masses / edema: None. Uriarte-white: Negative. White matter: Mild chronic microvascular ischemic changes. Vessels: Negative. Extra-axial: Negative. Calvarium / skull base: Negative. Visualized sinuses / orbits: Negative. IMPRESSION: No acute intracranial abnormality. Report Dictated By: Adarsh Harrison MD at 09/22/2018 5:27 PM Report E-Signed By: Adarsh Harrison MD at 09/22/2018 5:31 PM [id number]
== END 2018-09-22 18:07 | disposition home or self-care (01) ==
LOC: ER 15:49
DX: R25.1 Tremor, unspecified (principal); F03.90 Unspecified dementia, unspecified severity, without behavioral disturbance, psychotic disturbance, mood disturbance, and anxiety
CPT/HCPCS: 70450; 80305; 81001; 82140; 82375; 82803; 84443; 85025; 99284; A4353; A9270; G0480; 80320; 82040; 82247; 82310; 82374; 82435; 82565; 82947; 84075; 84132; 84155; 84295; 84450; 84460; 84520

== ENCOUNTER → 2018-09-25 | Outpatient (CLI) | payer MEDICARE, MEDICAID ==
--- NOTE | 2018-09-25 14:55 | EKG ---
FACILITY: [facility] PATIENT NAME: KIERA GARCIA : [id number] MR: [id number] V: [id number] EXAM DATE: ORDERING PHYSICIAN: JOANN BOSTON TECHNOLOGIST: AMADOU Test Reason : Blood Pressure : / mmHG Vent. Rate : 066 BPM Atrial Rate : 066 BPM P-R Int : 138 ms QRS Dur : 098 ms QT Int : 406 ms P-R-T Axes : 065 251 071 degrees QTc Int : 425 ms Normal sinus rhythm Normal ECG When compared with ECG of 22-APR-2017 12:25, Incomplete right bundle branch block is no longer present Referred By: VERÓNICA Confirmed By:
--- NOTE | 2018-09-25 15:46 | RADIOLOGY IMAGING REPORT ---
FACILITY: [facility] PATIENT NAME: Shantell Barnes : 1950 MR: [id number] V: [id number] EXAM DATE: ORDERING PHYSICIAN: JOANN BOSTON TECHNOLOGIST: Location: [facility] Patient: Shantell Barens : 1950 Visit/Account:[id number] Date of Sevice: 09/25/2018 EXAMINATION: CTA of the chest with IV contrast HISTORY: Hypoxia. TECHNIQUE: Pulmonary embolus protocol - Thin axial CT images of the chest were obtained with IV con trast during maximal pulmonary arterial opacification. Reconstruction of the source data includes mul tiplanar 2D coronal and sagittal reconstructed images, and 3D coronal and sagittal MIP images. Repres entative images have been stored on PACS. One of the following dose optimization techniques was utilized in the performance of this exam: Autom ated exposure control; adjustment of the mA and/or kV according to the patient's size; or use of an i terative reconstruction technique. Specific details can be referenced in the facility's radiology C T exam operational policy. Contrast: 75 mL of IV [id number]. COMPARISON: CT chest without contrast 05/20/2016. FINDINGS: Pulmonary arteries: The pulmonary arteries are well opacified, without suspicious filling defect. Heart, aorta, and great vessels: Normal caliber thoracic aorta without aneurysm or dissection. Barbara l heart size. No pericardial effusion. Lungs and pleura: There are moderately advanced emphysematous changes in the mid and upper lungs. Sl ight scarring or atelectasis at the lung bases. No suspicious focal consolidation. There is a 4 x 4 mm subpleural nodule in the right lower lobe anteriorly (series 10, image 207) and a 6 x 4 mm subpleural nodule in the left lower lobe laterally (image 238). These appear stable from 20 16 and are likely benign. No pleural effusion or pneumothorax. The central airways are patent. Mediastinum and alessandra: Negative. Visualized upper abdomen: Unremarkable. Chest wall: Negative. Bones: No acute osseous findings. Stable chronic compression fracture of T9, with 30% loss of height. Partia lly visualized plate and screw fixation along the cervical spine. A fracture of the lateral right 10t h rib is new since 2016 but nonacute, with surrounding callus formation. IMPRESSION: 1. No evidence of pulmonary embolism. 2. No other acute findings in the chest. 3. Moderately advanced pulmonary emphysema. Report Dictated By: Daniel Martinez MD at 09/25/2018 3:21 PM Report E-Signed By: Daniel Martinez MD at 09/25/2018 3:41 PM [id number]
== END ==
LOC: LAB 13:44
PROVIDERS: ATTEND Emergency Medicine
DX: J96.11 Chronic respiratory failure with hypoxia (principal); R09.02 Hypoxemia
CPT/HCPCS: 36415; 71275; 84484; 85379; 86140

== ENCOUNTER 2018-09-29 18:11 | Inpatient (IN) | payer MEDICARE, MEDICAID ==
[~2018-09-29] VITALS: Ht 162.6 cm; Wt 62.1 kg
[2018-09-29] VITALS (11 sets, daily range): BP systolic 100–128; BP diastolic 70–94
[~2018-09-29 18:11] MED LIST changes: -BUPR-474 PO; -DICL100G39 TOP
[2018-09-29] MEDS ORDERED: ALBUTEROL/IPRATROPIUM 3 ML NEB NEB SCH (18:15)
[2018-09-29] MEDS ORDERED: methylPREDNIS SUCC 125 MG/2ML IVP ONE (18:15)
--- NOTE | 2018-09-29 18:15 | ER Report ---
History and Physical Time Seen By MD: 18:15 HPI/ROS CHIEF COMPLAINT: Altered mental status, hypoxia HISTORY OF PRESENT ILLNESS: 67-year-old female with a history of COPD O2 dependent at home. Brought in by EMS combative with altered mental status. She was recently seen in internal medicine clinic and in the ER approximately 10 days ago. EMS administered ketamine to calm her down in the field so that they were able to administer Cipro Supportive oxygenation on 100% and administer several nebulizer treatments in route. Patient has a history of dementia. On arrival, patient has fever 101.7 rectally. Patient unable to give any history. Combative and agitated. Sepsis workup initiated. Patient was switched over to BiPAP from EMS see C Pap on high flow O2 to maintain saturations at 8889 %. Patient was given repeated doses of ketamine 25 mg as needed for her agitation. She was placed in soft restraints. Lactate returned at 3.2. REVIEW OF SYSTEMS: Respiratory: As above Cardiovascular: No chest pain, no palpitations. Gastrointestinal: No vomiting, no abdominal pain. Musculoskeletal: No back pain. Allergies: Coded Allergies: amoxicillin (Verified Allergy, Mild, 09/22/18) Home Meds Active Scripts Clotrimazole (CLOTRIMAZOLE) 15 Gm Cream..g., 15 GM TP BID, #1 TUBE Prov:JOANN BOSTON MD 06/20/18 Esomeprazole Magnesium (NEXIUM) 40 Mg Capsule.dr, 1 CAP PO QDAY, #90 CAP 3 Refills Prov:JOANN BOSTON MD 04/07/18 Montelukast Sodium (SINGULAIR) 10 Mg Tablet, 1 TAB PO QDAY, #30 TAB 11 Refills Prov:JOANN BOSTON MD 12/28/17 Levothyroxine Sodium (LEVOTHYROXINE SODIUM) 88 Mcg Tablet, 1 TAB PO DAILY, #90 TAB 4 Refills Prov:JOANN BOSTON MD 09/05/17 Ketoconazole (KETOCONAZOLE) 120 Ml Shampoo, 1 APPLIC TP DAILY for 30 Days, #1 TUBE 2 Refills Prov:JOSE J ROBERT [facility] 07/21/17 Hydrocortisone 2.5% Oint (HYDROCORTISONE 2.5% OINT) 453.6 Gm Oint...g., 1 APPLIC TP BID for 30 Days, #30 GM 2 Refills Apply to face and ears twice a day. Prov:JOHNANNIKAJOSE J NPC 07/21/17 Clobetasol Propionate (CLOBETASOL PROPIONATE) 15 Gm Oint...g., 1 APPLIC TP BID for 30 Days, #30 GM 2 Refills Pt to apply to hands twice a day. Prov:CLARENCE ROBERTBASIA Juarez NPC 07/21/17 Albuterol Sulfate 0.083% (ALBUTEROL SULFATE 0.083%) 2.5 Mg/3 Ml Vial.neb, 2.5 MG INH 3-4XD, #120 VIAL 5 Refills Prov:JOANN BOSTON MD 06/27/17 Albuterol Sulfate 90 Mcg/Act (PROAIR HFA 90 MCG/ACT) 8.5 Gm Hfa.aer.ad, 1-2 PUFF IH 3-4XD, #3 INHALER 3 Refills Prov:JOANN BOSTON MD 06/27/17 Fluticasone/Vilanterol (Breo Ellipta 200-25 Mcg INH) 1 Each Blst.w.dev, 1 PUFF PO QDAY, #3 INHALER 3 Refills Prov:JOANN BOSTON MD 06/27/17 Guaifenesin (MUCINEX) 600 Mg Tablet.er, 600 MG PO BID PRN for CONGESTION, #180 TAB 3 Refills Prov:JOANN BOSTON MD 06/27/17 Reported Medications Pregabalin (LYRICA) 300 Mg Capsule, 300 MG PO BID, CAPSULE 07/10/18 Polyethylene Glycol 3350 (MIRALAX) 17 Gm Powd.pack, 17 GM PO DAILY, PKT 01/27/18 Linaclotide (LINZESS) 145 Mcg Capsule, 145 MCG PO DAILY, CAPSULE 01/27/18 Hydromorphone Hcl (HYDROMORPHONE HCL) 4 Mg Tablet, 0.5 TAB PO DAILY daily at noon 01/27/18 Hydromorphone Hcl (HYDROMORPHONE HCL) 4 Mg Tablet, 4 MG PO BID 01/27/18 Amitriptyline Hcl (AMITRIPTYLINE HCL) 75 Mg Tablet, 75 MG PO QHS, #5 TAB 01/27/18 Aspirin (ASPIR 81) 81 Mg Tablet.dr, 1 TAB PO DAILY, TAB 01/27/18 Multivitamin (DAILY MULTIPLE VITAMIN) 1 Each Tablet, 1 EACH PO DAILY 09/27/17 Ibuprofen (IBUPROFEN) 200 Mg Tablet, 2 TAB PO QID PRN for PRN, TAB 09/27/17 Bupropion Hcl (BUPROPION XL) 300 Mg Tab.er.24h, 450 MG PO DAILY, #10 TAB 09/27/17 Bacillus Coagulans (Digestive Advantage) 250 Million Cell Tab.chew, 1 TAB PO PRN 12/28/16 Cholecalciferol (Vitamin D3) (VITAMIN D3) 5,000 Unit Tablet, 1 TAB PO DAILY 12/28/16 Loratadine (LORATADINE) 10 Mg Tablet, 1 TAB PO DAILY 12/28/16 Oxygen (OXYGEN) Inha, 2.5 L INH PRN, L 04/29/16 Past Medical/Surgical History Past Medical History Neurologic: Reports hx of: dementia stroke (lacunar infarcts on CT) Respiratory: Reports hx of: COPD sleep apnea Gastrointestinal: Reports hx of: peptic ulcer disease Musculoskeletal: Reports hx of: back pain fibromyalgia osteoarthritis scoliosis Integumentary: Reports hx of: eczema (scalp) Endocrine: Reports hx of: hypothyroidism Past Surgical History HEENT: Reports hx of: tonsillectomy (1979) Gynecologic: Reports hx of: delivery (1976 & 1982) Musculoskeletal: Reports hx of: spinal surgery (c-spine fusion 1998, neck surgery 1998, ) total joint replacement (Left knee 2015, right knee 2016) Reviewed Nurses Notes: Yes Old Medical Records Reviewed: Yes Hx Smoking: Yes (1/2-1PPD) Smoking Status: Former Smoker Exposure to Second Hand Smoke?: Yes Hx Substance Use Disorder: No Hx Alcohol Use: Yes Constitutional Vital Sign - Last 24 Hours 09/29/18 09/29/18 09/29/18 09/29/18 18:11 18:13 18:16 18:26 Temp 101.7 Pulse ??? 110 110 Resp 40 175 B/P (MAP) 114/92 (99) 116/80 Pulse Ox 83 O2 Delivery Bi-PAP 09/29/18 09/29/18 09/29/18 09/29/18 18:30 18:30 18:37 18:40 B/P (MAP) 114/87 (96) 130/118 (122) 116/80 (92) FiO2 70.0 09/29/18 09/29/18 09/29/18 09/29/18 18:41 18:45 18:45 18:45 Pulse 118 122 Resp 45 36 B/P (MAP) 124/61 (82) Pulse Ox 95 99 O2 Delivery Bi-PAP FiO2 70.0 09/29/18 09/29/18 09/29/18 09/29/18 18:47 18:50 18:54 18:56 Pulse 118 Resp 23 B/P (MAP) 130/78 (95) 135/76 (95) 124/78 (93) Pulse Ox 87 09/29/18 09/29/18 09/29/18 09/29/18 19:00 19:05 19:10 19:11 Pulse 120 B/P (MAP) 125/81 (96) 132/114 (120) 132/72 (92) Pulse Ox 98 09/29/18 09/29/18 09/29/18 09/29/18 19:15 19:20 19:25 19:26 Pulse 118 B/P (MAP) 128/97 (107) 111/87 (95) 131/114 (120) Pulse Ox 99 09/29/18 09/29/18 09/29/18 09/29/18 19:31 19:33 19:41 19:56 Pulse 102 103 B/P (MAP) 177/102 (127) 139/92 (108) Pulse Ox 99 100 09/29/18 09/29/18 09/29/18 09/29/18 20:01 20:06 20:11 20:16 Pulse 103 101 100 104 Pulse Ox 99 100 99 09/29/18 09/29/18 20:21 20:26 Pulse 107 108 Pulse Ox 97 95 Intake and Output 09/29/18 09/29/18 09/30/18 15:00 23:00 07:00 Output Total 300 ml Balance -300 ml Physical Exam Vital signs stable, combative, borderline hypoxic in the mid to low 80s on significant supplemental O2 nearly 100% on EMS. C Pap General Appearance: The patient is alert, has no immediate need for airway protection and no current signs of toxicity. Grossly, agitated, skin warm and dry, pink HEENT: Pupils equal and round no injection. Oropharynx with dry mucous membranes Respiratory: Chest is non tender, bibasilar Rales and rhonchi poor expiratory effort Cardiac: regular rate and rhythm, distant heart sounds Gastrointestinal: Abdomen is soft and non tender, no masses, bowel sounds normal. Musculoskeletal: Neck: Neck is supple and non tender. No JVD, no lymphadenopathy Extremities have full range of motion and are non tender. No edema, no calf tenderness Skin: No rashes or lesions. Neuro: Agitated, combative, movement of extremities 4. DIFFERENTIAL DIAGNOSIS: After history and physical exam differential diagnosis was considered for altered mental status including but not limited to hypoglycemia, infectious process, electrolyte abnormality, head injury and intox icants.adult fever including but not limited to viral syndromes including influenza, urinary tract infection, pneumonia and sepsis. Medical Decision Making Data Points Result Diagram: 09/29/18 1810 09/29/18 1810 Laboratory Hematology Test 09/29/18 18:10 09/29/18 18:30 09/29/18 18:31 Red Blood Count 5.15 M/uL (4.17-5.56) Mean Corpuscular Volume 91.1 fL (80.0-96.0) Mean Corpuscular Hemoglobin 31.2 pg (26.0-33.0) Mean Corpuscular Hemoglobin Concent 34.2 g/dL (32.0-36.0) Red Cell Distribution Width 13.8 % (11.5-14.5) Mean Platelet Volume 9.1 fL (7.2-11.1) Neutrophils (%) (Auto) % (39.4-72.5) Lymphocytes (%) (Auto) % (17.6-49.6) Monocytes (%) (Auto) % (4.1-12.4) Eosinophils (%) (Auto) % (0.4-6.7) Basophils (%) (Auto) % (0.3-1.4) Nucleated RBC Relative Count (auto) /100WBC Neutrophils # (Auto) K/uL (2.0-7.4) Lymphocytes # (Auto) K/uL (1.3-3.6) Monocytes # (Auto) K/uL (0.3-1.0) Eosinophils # (Auto) K/uL (0.0-0.5) Basophils # (Auto) K/uL (0.0-0.1) Nucleated RBC Absolute Count (auto) K/uL Neutrophils % (Manual) 63 % (39.4-72.5) Band Neutrophils % 13 % Lymphocytes % (Manual) 12 % (17.6-49.6) Monocytes % (Manual) 12 % (4.1-12.4) Eosinophils % (Manual) 0 % (0.4-6.7) Basophils % (Manual) 0 % (0.3-1.4) Peripheral Blood Smear Yes Y/N Sodium Level 138 mmol/L (137-145) Potassium Level 3.3 mmol/L (3.5-5.0) Chloride Level 96 mmol/L (98-107) Carbon Dioxide Level 29 mmol/L (22-31) Blood Urea Nitrogen 25 mg/dl (7-18) Creatinine 0.90 mg/dl (0.52-1.04) Glomerular Filtration Rate Calc > 60.0 Random Glucose 114 mg/dl (75-110) Calcium Level 9.5 mg/dl (8.4-10.2) Total Bilirubin 0.7 mg/dl (0.2-1.3) Aspartate Amino Transf (AST/SGOT) 61 U/L (0-35) Alanine Aminotransferase (ALT/SGPT) 31 U/L (0-56) Alkaline Phosphatase 52 U/L (0-126) Troponin I 0.016 ng/ml B-Type Natriuretic Peptide 135 pg/ml (0-100) Total Protein 7.7 g/dl (6.3-8.2) Albumin 4.5 g/dl (3.5-5.0) Whole Blood Glucose 111 mg/DL (75-110) Influenza Virus Type A (PCR) Positive (NEGATIVE) Influenza Virus Type B (PCR) Negative (NEGATIVE) Chemistry Test 09/29/18 18:10 09/29/18 18:30 09/29/18 18:31 White Blood Count 3.8 k/uL (4.5-11.0) Red Blood Count 5.15 M/uL (4.17-5.56) Hemoglobin 16.1 g/dL (12.0-16.0) Hematocrit 47.0 % (34.0-47.0) Mean Corpuscular Volume 91.1 fL (80.0-96.0) Mean Corpuscular Hemoglobin 31.2 pg (26.0-33.0) Mean Corpuscular Hemoglobin Concent 34.2 g/dL (32.0-36.0) Red Cell Distribution Width 13.8 % (11.5-14.5) Platelet Count 243 K/uL (150-450) Mean Platelet Volume 9.1 fL (7.2-11.1) Neutrophils (%) (Auto) % (39.4-72.5) Lymphocytes (%) (Auto) % (17.6-49.6) Monocytes (%) (Auto) % (4.1-12.4) Eosinophils (%) (Auto) % (0.4-6.7) Basophils (%) (Auto) % (0.3-1.4) Nucleated RBC Relative Count (auto) /100WBC Neutrophils # (Auto) K/uL (2.0-7.4) Lymphocytes # (Auto) K/uL (1.3-3.6) Monocytes # (Auto) K/uL (0.3-1.0) Eosinophils # (Auto) K/uL (0.0-0.5) Basophils # (Auto) K/uL (0.0-0.1) Nucleated RBC Absolute Count (auto) K/uL Neutrophils % (Manual) 63 % (39.4-72.5) Band Neutrophils % 13 % Lymphocytes % (Manual) 12 % (17.6-49.6) Monocytes % (Manual) 12 % (4.1-12.4) Eosinophils % (Manual) 0 % (0.4-6.7) Basophils % (Manual) 0 % (0.3-1.4) Peripheral Blood Smear Yes Y/N Glomerular Filtration Rate Calc > 60.0 Calcium Level 9.5 mg/dl (8.4-10.2) Total Bilirubin 0.7 mg/dl (0.2-1.3) Aspartate Amino Transf (AST/SGOT) 61 U/L (0-35) Alanine Aminotransferase (ALT/SGPT) 31 U/L (0-56) Alkaline Phosphatase 52 U/L (0-126) Troponin I 0.016 ng/ml B-Type Natriuretic Peptide 135 pg/ml (0-100) Total Protein 7.7 g/dl (6.3-8.2) Albumin 4.5 g/dl (3.5-5.0) Whole Blood Glucose 111 mg/DL (75-110) Influenza Virus Type A (PCR) Positive (NEGATIVE) Influenza Virus Type B (PCR) Negative (NEGATIVE) EKG/Imaging EKG Interpretation 12 lead EK Rhythm: Sinus tachycardia, rate 103 [place]: Left axis deviation QRS: normal,? Old anterior Q waves ST segments: normal, No acute ischemic findings Imaging X-ray: Single view portable chest x-ray was obtained. I viewed the images myself on the PACS system. My interpretation of the images is: Bilateral fluffy infiltrates, right greater than left. The radiologist interpretation had no clinically significant variation from this interpretation. X-ray: Repeat single view after intubation was obtained. I viewed the images myself on the PACS system. My interpretation of the images is: Good ET tube placement, gastric tube in gastric stomach area, bilateral infiltrates remained. The radiologist interpretation had no clinically significant variation from this interpretation. ED Course/Re-evaluation Clinical Indication for ER IV: Hydration, IV Access ED Course Patient was admitted to an examination room. H&P was done. The differential diagnoses was considered. Patient suffering. Hypoxic respiratory failure on arrival. She was placed on BiPAP. She was grossly agitated. An ABG shows relatively stable. Blood gas but requiring significant supplemental O2. PH 7.40, PCO2 of 34, PO2 of 60 with a saturation of 89% on nearly 100% supplemental O2. She was treated with a 10 mg albuterol continuous neb for 1 hour. Solu- Medrol 125 mg was administered IV. Blood cultures were drawn. A portable chest x-ray was performed which shows bilateral infiltrates. A rapid influenza returned positive for flu A. Lactate was elevated to 3.2. Fluid boluses were initiated. Rocephin 2 g was administered IV treatment of bacterial pneumonia. Patient was admitted to ICU Procedure: Rapid sequence intubation. Indication for the procedure was head trauma, airway protection, respiratory failure. The patient was preoxygenated with 100% oxygen by bag valve mask. The patient was given the following IV medications: Etomidate 20 mg, succinylcholine 120 mg fentanyl, The patient was orally endotracheally intubated under direct visualization with a 7.5 ETT. In line stabilization was performed during the procedure. Tracheal intubation was confirmed with misting on the tube; breath sounds were auscultated equally bilaterally;chest X-ray shows ETT in good position. The procedure was performed by myself. 09/29/2018 8:41:56 pm case was discussed with Dr. geoff Ferrer hospitalist who accepts patient for admission. Patient be sent to ICU. Decision to Disposition Date: Sep 29, 2018 Decision to Disposition Time: 19:37 Critical Care Time I spent a total of 90 minutes of critical care time in obtaining history, performing a physical exam, bedside monitoring of interventions, collecting and interpreting tests and discussion with consultants but not including time spent performing procedures. Depart Departure Latest Vital Signs Vital Signs Date Time Temp Pulse Resp B/P (MAP) Pulse Ox O2 Delivery O2 Flow Rate FiO2 09/29/18 20:26 108 95 09/29/18 19:33 139/92 (108) 09/29/18 18:56 23 09/29/18 18:45 Bi-PAP 70.0 09/29/18 18:16 101.7 Impression: Primary Impression: Respiratory failure Additional Impressions: Bilateral pneumonia Influenza A Agitation Condition: Critical Disposition: Admitted from ER Referrals: JOANN BOSTON MD (PCP) Problem Qualifiers Primary Impression: Respiratory failure Chronicity: acute Respiratory failure complication: hypoxia Qualified Codes: J96.01 - Acute respiratory failure with hypoxia Additional Impressions: Bilateral pneumonia Pneumonia type: due to unspecified organism Lung location: unspecified part of lung Qualified Codes: J18.9 - Pneumonia, unspecified organism KEN MCGRATH DO Sep 29, 2018 18:15
[2018-09-29 18:24] LABS: PLATELET COUNT, AUTOMATED 243 K/uL (150-450)
[2018-09-29] MEDS ORDERED: KETAMINE HCL-NS 50 MG/5 ML SYR IVP ONE ×6 (18:35→18:45)
[2018-09-29] MEDS ORDERED: KETAMINE HCL-NS 50 MG/5 ML SYR ONE ×2 (18:48→19:21)
[2018-09-29] MEDS ORDERED: KETAMINE HCL 500 MG/5 ML VIAL ONE (19:03)
[2018-09-29] MEDS ORDERED: NS(*) 0.9% 500 ML BAG 500 ML ONE ×2 (19:03→23:14)
--- NOTE | 2018-09-29 19:18 | RADIOLOGY IMAGING REPORT ---
FACILITY: [facility] PATIENT NAME: Shantell Barnes : 1950 MR: [id number] V: [id number] EXAM DATE: ORDERING PHYSICIAN: KEN MCGRATH TECHNOLOGIST: Location: [facility] Patient: Shantell Barnes : 1950 Visit/Account:[id number] Date of Sevice: 09/29/2018 CHEST SINGLE AP Indication: Respiratory distress.. Comparison: 09/05/2017. Findings: Cardiomediastinal silhouette and pulmonary vessels within normal limits. Patchy hazy opacities seen in both mid lungs, not appreciated previously. The remaining lung dykes a re clear. No pneumothorax or pleural effusion. No discrete nodule. The upper abdomen is unremarkable. No acute bony abnormality. IMPRESSION: 1. Bilateral patchy hazy opacities in the midlungs may represent early pneumonia. Suggest follow-up f ilms to assess for clearing or other etiologies. Report Dictated By: aGry Jose at 09/29/2018 7:13 PM Report E-Signed By: Gary Jose at 09/29/2018 7:14 PM [id number]
[2018-09-29] MEDS ORDERED: cefTRIAXone 2 GM VIAL IVP ONE (19:35)
[2018-09-29] MEDS ORDERED: ROCURONIUM BROM 10 MG/ML 5 ML IVP ONE (20:10)
--- NOTE | 2018-09-29 20:14 | RADIOLOGY IMAGING REPORT ---
FACILITY: [facility] [place] PATIENT NAME: Shantell Barnes : 1950 MR: [id number] V: [id number] EXAM DATE: ORDERING PHYSICIAN: KEN MCGRATH TECHNOLOGIST: Location: [facility] Patient: Shantell Barnes : 1950 Visit/Account:[id number] Date of Sevice: 09/29/2018 INDICATION: Evaluate endotracheal tube position. DATE: 09/29/2018 8:03 PM. TECHNIQUE: CHEST SINGLE AP COMPARISON: Radiographs of the same day. FINDINGS: The tube terminating within the stomach is presumably an esophagogastric tube. Multiple tu bes are coiled over the upper chest. A support tube (large-caliber) also projects over the upper [address]. Multiple EKG leads project over the chest. What appears to be the endotracheal tube terminates below the level of the clavicular heads. The exact location of the price is not well defined. IMPRESSION: 1. The ET tube tip is likely positioned just below the clavicular heads. The exact distance above t he price is poorly defined. Consider repeat imaging with repositioning of the multiple tubes and li rick over the chest such that they do not overlap in the expected location of the endotracheal tube ti p. 2. The esophagogastric tube tip is just inside the stomach. Report Dictated By: Maureen Hernandez MD at 09/29/2018 8:03 PM Report E-Signed By: Maureen Hernandez MD at 09/29/2018 8:09 PM WSN:[id number]
[2018-09-29] MEDS ORDERED: ACETAMINOPHEN(*)1000 MG/100 ML 100 ML IVPB ONE (20:35)
[2018-09-29] MEDS ORDERED: ALBUTEROL 2.5 MG/3 ML NEB NEB PRN (21:00)
[2018-09-29] MEDS ORDERED: OSELTAMIVIR PHOS 30 MG CAP FT SCH (21:10)
--- NOTE | 2018-09-29 22:14 | EKG ---
FACILITY: [facility] [place] PATIENT NAME: KIERA GARCIA : [id number] MR: [id number] V: [id number] EXAM DATE: ORDERING PHYSICIAN: KEN MCGRATH TECHNOLOGIST: JENNIFER Test Reason : RESP FAILURE Blood Pressure : / mmHG Vent. Rate : 103 BPM Atrial Rate : 103 BPM P-R Int : 136 ms QRS Dur : 100 ms QT Int : 348 ms P-R-T Axes : 000 -79 058 degrees QTc Int : 455 ms Sinus tachycardia Left axis deviation Septal infarct , age undetermined Abnormal ECG When compared with ECG of 25-SEP-2018 13:52, Vent. rate has increased BY 37 BPM Septal infarct is now present Confirmed by WALKER CABRERA ([id number]) on 09/29/2018 10:33:55 PM Referred By: ALCIDES Confirmed By:WALKER CABRERA
--- NOTE | 2018-09-29 22:20 | RADIOLOGY IMAGING REPORT ---
FACILITY: [facility] PATIENT NAME: Shantell Barnes : 1950 MR: [id number] V: [id number] EXAM DATE: ORDERING PHYSICIAN: WALKER CABRERA TECHNOLOGIST: Location: [facility] [place] Patient: Shantell Barnes : 1950 Visit/Account:[id number] Date of Sevice: 09/29/2018 CHEST SINGLE AP 09/29/2018 21:33 hours. HISTORY: Respiratory distress. COMPARISON: 09/29/2018 at 7:38 PM and studies dating to 04/24/2006. TECHNIQUE: Portable AP view of the chest. FINDINGS: Tubes/lines/hardware: ET tube terminates 4 cm above the price. NG or OG tube terminates in the stoma ch. The side-port is 3 cm above the gastroesophageal junction. There are external chest leads. There are a plate and screws from anterior cervical fusion. Pulmonary/pleura: The parenchymal opacities in the lungs are stable to minimally progressed. There is a skin fold of the right upper chest. No pneumothorax or pleural effusion. Cardiomediastinal: Cardiac and mediastinal silhouettes are within normal limits. Bones/soft tissues: No acute osseous abnormality. There is an old distal left clavicle fracture. Ther e is degenerative change of the right glenohumeral joint with superior displacement of the humeral he ad, compatible with rotator cuff disease. There is mild degenerative change of the left glenohumeral joint. The visible abdomen is normal. IMPRESSION: 1. Stable to minimal progression of the parenchymal opacities. 2. Tubes and lines as above. The NG or OG tube terminates in the upper stomach but the side-port is 3 cm above the gastroesophageal junction. Suggestion is to advance this tube to place the side-port wi thin the stomach. Report Dictated By: Rosaura Weaver at 09/29/2018 10:02 PM Report E-Signed By: Rosaura Weaver at 09/29/2018 10:15 PM WSN:[id number]
[2018-09-29] MEDS ORDERED: ORAL SUCTION/CHLORHX/SWAB KIT MT SCH (22:25)
--- NOTE | 2018-09-29 22:28 | History & Physical ---
History of Present Illness History of Present Illness 67yo female with COPD, dementia and CVD who was brought to the ER for hypoxia and AMS. The history is from the patient's daughters. The patient was in the ER on 09/22 (7 days ago) for memory issues, tremor and gait problems. The workup was negative and thought to be related to the patient not wearing her O2. The symptoms resolved with O2. For the last 2 days, the patient has been in bed, per the ASSOCIATE PROFESSOR [employer] reports who check on her. The family wasn't aware of this until today. The daughter went in and found her very confused, O2 off, incontinent of urine and a very dry mouth. She called EMS. The patient's O2 saturations were in about 60%. She was given Ketamine in the field because of agitation. In the ER, she was placed on a Ketamine drip and BIPAP. The patient was still flailing around and wouldn't follow commands, so was intubated. She was also given Rocephin 2g, DuoNeb, methylprednisolone. She was started on a propofol drip and was given a dose of Rocuronium for moving around History Problems: (1) COPD (chronic obstructive pulmonary disease) Status: Chronic (2) Dementia Status: Chronic (3) Hypothyroidism Status: Chronic (4) GERD (gastroesophageal reflux disease) Status: Chronic (5) Multiple lacunar infarcts Status: Chronic (6) Chronic pain syndrome Status: Chronic Home Meds Active Scripts Clotrimazole (CLOTRIMAZOLE) 15 Gm Cream..g., 15 GM TP BID, #1 TUBE Prov:JOANN BOSTON MD 06/20/18 Esomeprazole Magnesium (NEXIUM) 40 Mg Capsule.dr, 1 CAP PO QDAY, #90 CAP 3 Refills Prov:JOANN BOSTON MD 04/07/18 Montelukast Sodium (SINGULAIR) 10 Mg Tablet, 1 TAB PO QDAY, #30 TAB 11 Refills Prov:JOANN BOSTON MD 12/28/17 Levothyroxine Sodium (LEVOTHYROXINE SODIUM) 88 Mcg Tablet, 1 TAB PO DAILY, #90 TAB 4 Refills Prov:JOANN BOSTON MD 09/05/17 Ketoconazole (KETOCONAZOLE) 120 Ml Shampoo, 1 APPLIC TP DAILY for 30 Days, #1 TUBE 2 Refills Prov:JOSE J ROBERT NPC 07/21/17 Hydrocortisone 2.5% Oint (HYDROCORTISONE 2.5% OINT) 453.6 Gm Oint...g., 1 APPLIC TP BID for 30 Days, #30 GM 2 Refills Apply to face and ears twice a day. Prov:JOHNJOSE J ROBLERO Larry NPC 07/21/17 Clobetasol Propionate (CLOBETASOL PROPIONATE) 15 Gm Oint...g., 1 APPLIC TP BID for 30 Days, #30 GM 2 Refills Pt to apply to hands twice a day. Prov:JOHNJOSE J ROBLERO Larry NPC 07/21/17 Albuterol Sulfate 0.083% (ALBUTEROL SULFATE 0.083%) 2.5 Mg/3 Ml Vial.neb, 2.5 MG INH 3-4XD, #120 VIAL 5 Refills Prov:JOANN BOSTON MD 06/27/17 Albuterol Sulfate 90 Mcg/Act (PROAIR HFA 90 MCG/ACT) 8.5 Gm Hfa.aer.ad, 1-2 PUFF IH 3-4XD, #3 INHALER 3 Refills Prov:JOANN BOSTON MD 06/27/17 Fluticasone/Vilanterol (Breo Ellipta 200-25 Mcg INH) 1 Each Blst.w.dev, 1 PUFF PO QDAY, #3 INHALER 3 Refills Prov:JOANN BOSTON MD 06/27/17 Guaifenesin (MUCINEX) 600 Mg Tablet.er, 600 MG PO BID PRN for CONGESTION, #180 TAB 3 Refills Prov:JOANN BOSTON MD 06/27/17 Reported Medications Pregabalin (LYRICA) 300 Mg Capsule, 300 MG PO BID, CAPSULE 07/10/18 Polyethylene Glycol 3350 (MIRALAX) 17 Gm Powd.pack, 17 GM PO DAILY, PKT 01/27/18 Linaclotide (LINZESS) 145 Mcg Capsule, 145 MCG PO DAILY, CAPSULE 01/27/18 Hydromorphone Hcl (HYDROMORPHONE HCL) 4 Mg Tablet, 0.5 TAB PO DAILY daily at noon 01/27/18 Hydromorphone Hcl (HYDROMORPHONE HCL) 4 Mg Tablet, 4 MG PO BID 6/29/18 Amitriptyline Hcl (AMITRIPTYLINE HCL) 75 Mg Tablet, 75 MG PO QHS, #5 TAB 01/27/18 Aspirin (ASPIR 81) 81 Mg Tablet.dr, 1 TAB PO DAILY, TAB 01/27/18 Multivitamin (DAILY MULTIPLE VITAMIN) 1 Each Tablet, 1 EACH PO DAILY 09/27/17 Ibuprofen (IBUPROFEN) 200 Mg Tablet, 2 TAB PO QID PRN for PRN, TAB 09/27/17 Bupropion Hcl (BUPROPION XL) 300 Mg Tab.er.24h, 450 MG PO DAILY, #10 TAB 09/27/17 Bacillus Coagulans (Digestive Advantage) 250 Million Cell Tab.chew, 1 TAB PO PRN 12/28/16 Cholecalciferol (Vitamin D3) (VITAMIN D3) 5,000 Unit Tablet, 1 TAB PO DAILY 12/28/16 Loratadine (LORATADINE) 10 Mg Tablet, 1 TAB PO DAILY 12/28/16 Oxygen (OXYGEN) Inha, 2.5 L INH PRN, L 04/29/16 Discontinued Reported Medications Hydroxyzine Hcl (HYDROXYZINE HCL) 25 Mg Tablet, 25 MG PO TID 01/27/18 Discontinued Scripts Sulfamethoxazole/Trimet 800-160 Mg Tab (BACTRIM DS TABLET) 1 Each Tablet, 1 TAB PO Q12H, #20 TAB Prov:JOANN BOSTON MD 06/05/18 Tizanidine Hcl (ZANAFLEX) 4 Mg Capsule, 1 CAP PO TID PRN for PAIN for 14 Days, #28 CAPSULE 0 Refills Prov:JOANN BOSTON MD 05/27/17 Allergies: Coded Allergies: amoxicillin (Verified Allergy, Mild, 09/22/18) Patient History: FH: HTN (hypertension) FATHER, , Age:76 Hx Smoking: Yes (1/2-1PPD) Smoking Status: Former Smoker Exposure to Second Hand Smoke?: Yes Caffeine Intake: Soda Caffeine/Cups Per Day: 4-6 CUPS/DAY Hx Alcohol Use: Yes Hx Substance Use Disorder: No Social Drug Use: Never Review of Systems Other Unable to obtain from the patient secondary to AMS and then sedation Exam Vital Signs Vital Signs Date Time Temp Pulse Resp B/P (MAP) Pulse Ox O2 Delivery O2 Flow Rate FiO2 09/29/18 20:51 101.8 96 97 09/29/18 19:33 139/92 (108) 09/29/18 18:56 23 09/29/18 18:45 Bi-PAP 70.0 General Appearance: Other (Intubated and sedated.) Neuro: Other (Not moving spontaneously) Eyes: PERRLA ENT: Moist Mucous Membranes Cardiovascular: Regular Rate and Rhythm Respiratory: Clear to Auscultation GI: Other (Soft, non-distended) Extremities: No Edema Integumentary: No Jaundice, No Cyanosis Medical Decision Making Data Points Result Diagram: 09/29/18180909/29/181809 Item Value Date Time Lactate 1.0 mmol/L 09/29/182127 Whole Blood Glucose 111 mg/DL H 09/29/18 1830 Lactate 3.2 mmol/L H 09/29/18 181 Sodium Level 138 mmol/L 09/29/18 181 Potassium Level 3.3 mmol/L L 09/29/18 181 Chloride Level 96 mmol/L L 09/29/18 181 Carbon Dioxide Level 29 mmol/L 09/29/18 181 Blood Urea Nitrogen 25 mg/dl H 09/29/18 1810 Creatinine 0.90 mg/dl 09/29/18 1810 Random Glucose 114 mg/dl H 09/29/18 1810 B-Type Natriuretic Peptide 135 pg/ml H 09/29/18 1810 Troponin I 0.016 ng/ml 09/29/18 181 Alkaline Phosphatase 52 U/L 09/29/18 1810 Alanine Aminotransferase (ALT/SGPT) 31 U/L 09/29/18 1810 Aspartate Amino Transf (AST/SGOT) 61 U/L H 09/29/18 1810 Total Bilirubin 0.7 mg/dl 09/29/18 1810 Calcium Level 9.5 mg/dl 09/29/18 181 Arterial Blood pH 7.41 09/29/18 182 Arterial Blood Partial Pressure CO2 34 mmHg 09/29/18 182 Arterial Blood Partial Pressure O2 60 mmHg 09/29/18 182 Arterial Blood HCO3 21 mmol/L 09/29/18 182 Arterial Blood Oxygen Saturation 89 % L 09/29/18 182 Neutrophils % (Manual) 63 % 09/29/18 1810 Band Neutrophils % 13 % 09/29/18 181 Lymphocytes % (Manual) 12 % L 09/29/18 181 Monocytes % (Manual) 12 % 09/29/181809 Eosinophils % (Manual) 0 % L 09/29/181809 Influenza Virus Type A (PCR) Positive 09/29/181830 Influenza Virus Type B (PCR) Negative 09/29/181830 EKG / Imaging Imaging CXR - 1. Bilateral patchy hazy opacities in the midlungs may represent early pneumonia. Suggest follow-up films to assess for clearing or other etiologies. Assessment and Plan Problems: (1) Respiratory failure Status: Acute Assessment & Plan: She presented with worsening hypoxia, increased WOB, and severe agitation. Because of those factors, she was sedated and intubated. She is now just on a propofol drip. She is on SIMV settings with a rate of 16 (it was 12, but ABG was consistent with respiratory acidosis - results haven't been posted), Vt of 450cc, PS 10 and PEEP of 5. FiO2 has been weaned down 60%. Awaiting the next blood gas to titrate. Plateau pressure of 15. Lovenox for DVT prophylaxis and Protonix for stress ulcer prophylaxis. (2) Bilateral pneumonia Status: Acute Assessment & Plan: See on CXR. It could be all from influenza, but because of the severity of her illness including an elevated lactated and bandemia; she has been started on Rocephin and Azithromycin. (3) Influenza A Status: Acute Assessment & Plan: Tamiflu at 30mg q12h to be started. (4) Agitation Status: Acute Assessment & Plan: She presented very confused, agitated and not following commands. It is likely secondary to hypoxia and illness, but will get a head CT because she lives alone and it is unknown if she might have sustained an head injury. (5) COPD (chronic obstructive pulmonary disease) Status: Chronic Assessment & Plan: Chronically on Singulair and albuterol, which will be continued. Methylprednisolone started in the ER and will be continued. (6) Multiple lacunar infarcts Status: Chronic Assessment & Plan: Chronically on ASA which will be continued. (7) Chronic pain syndrome Status: Chronic Assessment & Plan: She is chronically on Lyrica and hydromorphone. Those will be held for now, but will likely try to restart the Lyrica if it can go through the FT. Copies to: JOANN BOSTON MD ; Venous Thromboembolism Antithrombotics Is Pt On Any Antithrombotics?: No Exam Sepsis Risk: No Definite Risk Problem Qualifiers (1) Respiratory failure: Chronicity: acute Respiratory failure complication: hypoxia Qualified Codes: J96.01 - Acute respiratory failure with hypoxia (2) Bilateral pneumonia: Pneumonia type: due to unspecified organism Lung location: unspecified part of lung Qualified Codes: J18.9 - Pneumonia, unspecified organism WALKER CABRERA MD Sep 29, 2018 22:28
[2018-09-29] MEDS: ORAL SUCTION/CHLORHX/SWAB KIT MT SCH (22:40)
[2018-09-29] MEDS ORDERED: WATER STERILE(*) 10 ML VIAL 10 ML ONE (22:42)
[2018-09-29] MEDS: AZITHROMYCIN(*) 500 MG 500 MG in NS(*) 0.9% 250 ML BAG 250 ML IVPB SCH (23:02)
[2018-09-29] MEDS: NS(*) 0.9% 500 ML BAG 500 ML IV PRN (23:10)
[2018-09-29] MEDS: PROPOFOL(*)1000 MG/100 ML VIAL 100 ML IV PRN (23:30)
[2018-09-29] MEDS: MIDAZOLAM 50 MG/10 ML VIAL 100 MG in NS(*) 0.9% 100 ML BAG 80 ML IV PRN (23:37)
[2018-09-29] MEDS ORDERED: MIDAZOLAM 50 MG/10 ML VIAL IV ONE ×2 (23:39→23:40)
[2018-09-29] MEDS ORDERED: NS(*) 0.9% 100 ML BAG 100 ML ONE (23:39)
[2018-09-30] VITALS (96 sets, daily range): BP systolic 77–141; BP diastolic 55–111; Ht 162.6 cm; Wt 62.1 kg
[2018-09-30] MEDS: methylPREDNIS SUCC 125 MG/2ML IVP SCH ×3 (00:48→17:42)
--- NOTE | 2018-09-30 02:28 | RADIOLOGY IMAGING REPORT ---
FACILITY: [facility] - [place] PATIENT NAME: Shantell Barnes : 1950 MR: [id number] V: [id number] EXAM DATE: ORDERING PHYSICIAN: WALKER CABRERA TECHNOLOGIST: [place] [facility] [place] Patient: Shantell Barnes : 1950 Visit/Account:[id number] Date of Sevice: 09/29/2018 CT BRAIN NO CONTRAST HISTORY: Altered mental status. COMPARISON: 09/22/2018 and studies dating to 11/27/2014. TECHNIQUE: Axial images were obtained from the skull base to the vertex without contrast. Sagittal an d coronal reformats were performed. One of the following dose optimization techniques was utilized in the performance of this exam: Autom ated exposure control; adjustment of the mA and/or kV according to the patient's size; or use of an i terative reconstruction technique. Specific details can be referenced in the facility's radiology CT exam operational policy. CONTRAST: None. FINDINGS: Brain: No intracranial hemorrhage, mass, or edema. There are nonspecific periventricular, subcortical , and deep white matter low attenuation foci, mild in severity, unchanged. There is mild calcificatio n of the internal carotid arteries. Ventricles and sulci: Sulci are prominent, compatible with mild atrophy, normal for age. Ventricular size and configuration is normal. Osseous structures: Intact. Paranasal sinuses and mastoids: Normal. Orbits and soft tissues: Normal. Patient is intubated. There is an OG tube. IMPRESSION: 1. No acute intracranial abnormality. 2. Nonspecific white matter changes are most likely due to chronic microvascular ischemic change, mil d in severity, unchanged. Report Dictated By: Rosaura Weaver at 09/30/2018 2:18 AM Report E-Signed By: Rosaura Weaver at 09/30/2018 2:24 AM WSN:[id number]
[2018-09-30] MEDS: NS(*) 0.9% 1000 ML BAG 1,000 ML IV PRN ×3 (04:18→22:40)
[2018-09-30] MEDS: PROPOFOL(*)1000 MG/100 ML VIAL 100 ML IV PRN ×4 (04:18→20:18)
[2018-09-30] MEDS ORDERED: NS(*) 0.9% 1000 ML BAG 1,000 ML IV ONE ×3 (04:35)
[2018-09-30] MEDS ORDERED: KETAMINE HCL(*)500MG/5ML VIAL 500 MG in NS(*) 0.9% 500 ML BAG 495 ML IVPB ONE (04:55)
[2018-09-30] MEDS ORDERED: SUCCINYLCHOL CHL 200MG/10ML VL IVP ONE (05:00)
[2018-09-30] MEDS ORDERED: ETOMIDATE 20 MG/10 ML VIAL IVP ONE (05:05)
[2018-09-30 05:09] LABS: PLATELET COUNT, AUTOMATED 177 K/uL (150-450)
[2018-09-30] MEDS ORDERED: PROPOFOL EMUL 10MG/ML 20 ML VL IVP ONE ×2 (05:10→05:15)
[2018-09-30] MEDS: KCL (*) 20 MEQ/100 ML PREMIX 100 ML IV SCH ×2 (06:02→08:18)
[2018-09-30] MEDS: ALBUTEROL/IPRATROPIUM 3 ML NEB NEB SCH ×3 (06:08→19:07)
--- NOTE | 2018-09-30 07:05 | RADIOLOGY IMAGING REPORT ---
FACILITY: [facility] - [place] PATIENT NAME: Shantell Barnes : 1950 MR: [id number] V: [id number] EXAM DATE: ORDERING PHYSICIAN: WALKER CABRERA TECHNOLOGIST: Location: [facility] Patient: Shantell Barnes : 1950 Visit/Account:[id number] Date of Sevice: 09/30/2018 CHEST SINGLE AP 09/30/2018 06:23 hours. HISTORY: Respiratory distress. ET tube placement. COMPARISON: 09/29/2018 and studies dating to 04/24/2006. TECHNIQUE: Portable AP view of the chest. FINDINGS: Tubes/lines/hardware: ET tube terminates 5.5 cm above the price. NG or OG tube terminates in the sto mach. There are external chest leads. There are plates and screws from anterior cervical fusion. Pulmonary/pleura: Mild progression of bilateral airspace opacities. There is no pneumothorax or pleur al effusion. Cardiomediastinal: Cardiac and mediastinal silhouettes are within normal limits. Bones/soft tissues: No acute osseous abnormality. There is degenerative change of the glenohumeral titus ints. Old left clavicle fracture. The visible abdomen is normal. IMPRESSION: 1. Tubes and lines as above. 2. Worsening bilateral airspace opacities, suspect worsening pneumonia. Report Dictated By: Rosaura Weaver at 09/30/2018 6:59 AM Report E-Signed By: Rosaura Weaver at 09/30/2018 7:01 AM WSN:[id number]
[2018-09-30] MEDS ORDERED: PREGABALIN 50 MG CAPSULE FT SCH (09:00)
[2018-09-30] MEDS: OSELTAMIVIR PHOS 75 MG CAP FT SCH ×2 (09:22→20:15)
[2018-09-30] MEDS: PREGABALIN 150 MG CAPSULE FT SCH ×2 (09:23→20:15)
[2018-09-30] MEDS: ASPIRIN 81 MG CHEW FT SCH (09:23)
[2018-09-30] MEDS: MONTELUKAST SODIUM 10 MG TAB FT SCH (09:23)
[2018-09-30] MEDS: ENOXAPARIN 40 MG/0.4ML SYR SC SCH (09:25)
[2018-09-30] MEDS: ORAL SUCTION/CHLORHX/SWAB KIT MT SCH ×2 (09:26→20:10)
[2018-09-30] MEDS: PANTOPRAZOLE SOD 40 MG IV VIAL IVP SCH (09:26)
--- NOTE | 2018-09-30 13:15 | Hospitalist Progress Note ---
Subjective Progress Notes Subjective The patient remains intubated and sedated. No acute issues overnight. Physical Exam Vital Signs Date Time Temp Pulse Resp B/P (MAP) Pulse Ox O2 Delivery O2 Flow Rate FiO2 09/30/18 12:00 76 09/30/18 11:55 98 Mechanical Ventilator 65.0 09/30/18 11:10 20 09/30/18 08:45 108/75 (86) 09/30/18 08:00 99.6 Intake and Output 09/30/18 07:00 Intake Total 3506.4 ml Output Total 850 ml Balance 2656.4 ml IV Total 3506.4 ml Output Urine Total 850 ml # Voids 1 General Appearance: Other ( Sedated.) Eyes: PERRLA ENT: Other (ET tube in place.) Cardiovascular: Regular Rate and Rhythm Respiratory: Other (Crackles L base.) GI: Soft and Non-Tender Extremities: Warm, Perfused Psych: Other (Sedated.) Result Diagram: 09/30/18 0450 09/30/18 1109 Imaging FACILITY: [facility] - [place] PATIENT NAME: Shantell Barnes : 1950 MR: [id number] V: [id number] EXAM DATE: ORDERING PHYSICIAN: WALKER CARBERA TECHNOLOGIST: Location: [facility] - [place] Patient: Shantell Barnes : 1950 Visit/Account:[id number] Date of Sevice: 09/30/2018 CHEST SINGLE AP 09/30/2018 06:23 hours. HISTORY: Respiratory distress. ET tube placement. COMPARISON: 09/29/2018 and studies dating to 04/24/2006. TECHNIQUE: Portable AP view of the chest. FINDINGS: Tubes/lines/hardware: ET tube terminates 5.5 cm above the price. NG or OG tube terminates in the stomach. There are external chest leads. There are plates and screws from anterior cervical fusion. Pulmonary/pleura: Mild progression of bilateral airspace opacities. There is no pneumothorax or pleural effusion. Cardiomediastinal: Cardiac and mediastinal silhouettes are within normal limits. Bones/soft tissues: No acute osseous abnormality. There is degenerative change of the glenohumeral joints. Old left clavicle fracture. The visible abdomen is normal. IMPRESSION: 1. Tubes and lines as above. 2. Worsening bilateral airspace opacities, suspect worsening pneumonia. Report Dictated By: Rosaura Weaver at 09/30/2018 6:59 AM Report E-Signed By: Rosaura Weaver at 09/30/2018 7:01 AM WSN:[id number] Assessment and Plan Problems: (1) Respiratory failure Status: Acute Assessment & Plan: She presented with worsening hypoxia, increased WOB, and severe agitation. Because of those factors, she was sedated and intubated. She is now on a propofol drip and fentanyl. She is on SIMV settings with a rate of 16, Vt of 450cc, PS 10 and PEEP of 5. FiO2 has been weaned down 65%. Plateau pressure of 15. Lovenox for DVT prophylaxis and Protonix for stress ulcer prophylaxis. (2) Bilateral pneumonia Status: Acute Assessment & Plan: Infiltrates on CXR. It could be all from influenza, but because of the severity of her illness including an elevated lactated and bandemia, she has been started on Rocephin and Azithromycin. CXR looks a bit w orse today but the patient is improved clinically. (3) Influenza A Status: Acute Assessment & Plan: Continue Tamiflu. (4) Agitation Status: Acute Assessment & Plan: She presented very confused, agitated and not following commands. It was likely secondary to hypoxia and illness, but head CT ordered and was negative for acute issues. (5) COPD (chronic obstructive pulmonary disease) Status: Chronic Assessment & Plan: Chronically on Singulair and albuterol, which will be continued. Methylprednisolone started in the ER and will be continued. (6) Multiple lacunar infarcts Status: Chronic Assessment & Plan: Chronically on ASA which will be continued. (7) Chronic pain syndrome Status: Chronic Assessment & Plan: She is chronically on Lyrica and hydromorphone. Those were held initially. Lyrica has been restarted. Time Spent on Plan of Care: < 30 min Exam Sepsis Risk: Severe Sepsis Risk Problem Qualifiers (1) Respiratory failure: Chronicity: acute Respiratory failure complication: hypoxia Qualified Codes: J96.01 - Acute respiratory failure with hypoxia (2) Bilateral pneumonia: Pneumonia type: due to unspecified organism Lung location: unspecified part of lung Qualified Codes: J18.9 - Pneumonia, unspecified organism DEBBI DOWNEY MD Sep 30, 2018 13:15
[2018-09-30] MEDS: MIDAZOLAM 50 MG/10 ML VIAL 100 MG in NS(*) 0.9% 100 ML BAG 80 ML IV PRN (18:10)
[2018-09-30] MEDS: cefTRIAXone(*) 2 GM VIAL 2 GM in NS(*) 0.9% 100 ML ADDVANT BAG 100 ML IVPB SCH (18:31)
[2018-09-30] MEDS: AZITHROMYCIN(*) 500 MG 500 MG in NS(*) 0.9% 250 ML BAG 250 ML IVPB SCH (21:29)
[2018-10-01] VITALS (96 sets, daily range): BP systolic 86–148; BP diastolic 56–109
[2018-10-01] MEDS: methylPREDNIS SUCC 125 MG/2ML IVP SCH ×3 (00:56→16:32)
[2018-10-01 05:05] LABS: PLATELET COUNT, AUTOMATED 201 K/uL (150-450)
[2018-10-01] MEDS: ALBUTEROL/IPRATROPIUM 3 ML NEB NEB SCH ×3 (05:07→17:10)
--- NOTE | 2018-10-01 06:33 | RADIOLOGY IMAGING REPORT ---
FACILITY: [facility] - [place] PATIENT NAME: Shantell Barnes : 1950 MR: [id number] V: [id number] EXAM DATE: ORDERING PHYSICIAN: DEBBI DOWNEY TECHNOLOGIST: Location: [facility] Patient: Shantell Barnes : 1950 Visit/Account:[id number] Date of Sevice: 10/01/2018 CHEST SINGLE AP 10/01/2018 06:00 hours. HISTORY: Intubated. Pneumonia. COMPARISON: 09/30/2018 and studies dating to 04/24/2006. TECHNIQUE: Portable AP view of the chest. FINDINGS: Tubes/lines/hardware: ET tube terminates 3.5 cm above the price. NG or OG tube terminates in the upp er stomach. It has been advanced. There are external chest leads. There are partially visualized plat e and screws from anterior cervical fusion Pulmonary/pleura: Stable to slight improvement in the bilateral airspace opacities. There is no pneum othorax or pleural effusion. Cardiomediastinal: Cardiac and mediastinal silhouettes are within normal limits. Bones/soft tissues: No acute osseous abnormality. The visible abdomen is normal. IMPRESSION: 1. Tubes and lines as above. NG or OG tube has been advanced and the tip now terminates in the upper stomach. 2. Stable to slight improvement in the bilateral airspace opacities, likely improving pneumonia. Report Dictated By: Rosaura Weaver at 10/01/2018 6:25 AM Report E-Signed By: Rosaura Weaver at 10/01/2018 6:29 AM WSN:[id number]
--- NOTE | 2018-10-01 07:55 | Hospitalist Progress Note ---
Subjective Progress Notes Subjective Still requiring Versed and Propofol for sedation. UOP about 250cc overnight. Physical Exam Vital Signs Date Time Temp Pulse Resp B/P (MAP) Pulse Ox O2 Delivery O2 Flow Rate FiO2 10/01/18 07:37 70.0 10/01/18 06:30 97.7 75 24 125/63 (83) 94 Mechanical Ventilator Intake and Output 10/01/18 06:59 Intake Total 3056.9 ml Output Total 592 ml Balance 2464.9 ml Intake Oral 0 ml IV Total 3016.9 ml Tube Irrigant 40 ml Output Urine Total 592 ml General Appearance: Other (Sedated and intubated) Neuro: Other (Not following commands or openning eyes to voice. She moves all extremities) Eyes: PERRLA ENT: Other (tacky MMM) Cardiovascular: Regular Rate and Rhythm Respiratory: Clear to Auscultation GI: Other (Soft, non-distended) Extremities: No Edema Integumentary: No Jaundice, No Cyanosis Result Diagram: 10/01/18 04510/01/18452 Assessment and Plan Problems: (1) Respiratory failure Status: Acute Assessment & Plan: She presented with worsening hypoxia, increased WOB, and severe agitation. Because of those factors, she was sedated and intubated. She is now on a propofol and Versed drips. She is on SIMV settings with a rate of 16, Vt of 450cc, PS 10 and PEEP of 5. FiO2 has been increased to 70% this morning based on the blood gas. Plateau pressure of 15. Will increase the PEEP to 12 and try to decrease the FiO2. Lovenox for DVT prophylaxis and Protonix for stress ulcer prophylaxis. Start tube feedings. (2) Bilateral pneumonia Status: Acute Assessment & Plan: Infiltrates on CXR. It could be all from influenza, but because of the severity of her illness including an elevated lactated and bandemia, she is on Rocephin and Azithromycin. CXR looks about the same and O2 requirement is still high. See above. (3) Influenza A Status: Acute Assessment & Plan: Continue Tamiflu. (4) Agitation Status: Acute Assessment & Plan: She presented very confused, agitated and not following commands. It was likely secondary to hypoxia and illness, but head CT ordered and was negative for acute issues. (5) COPD (chronic obstructive pulmonary disease) Status: Chronic Assessment & Plan: Chronically on Singulair and albuterol, which will be continued. On IV Methylprednisolone and scheduled nebs. (6) Elevated troponin Status: Acute Assessment & Plan: It peaked the morning after admission. It is now trending down. No ST-T abnormalities on the initial ECG. Likely, secondary to illness a nd hypoxia prior to admission. Will follow. She might need a stress test after as an outpatient. (7) Multiple lacunar infarcts Status: Chronic Assessment & Plan: Chronically on ASA which will be continued. (8) Chronic pain syndrome Status: Chronic Assessment & Plan: She is chronically on Lyrica and hydromorphone. Those were held initially. Lyrica has been restarted. Exam Sepsis Risk: No Definite Risk Problem Qualifiers (1) Respiratory failure: Chronicity: acute Respiratory failure complication: hypoxia Qualified Codes: J96.01 - Acute respiratory failure with hypoxia (2) Bilateral pneumonia: Pneumonia type: due to unspecified organism Lung location: unspecified part of lung Qualified Codes: J18.9 - Pneumonia, unspecified organism WALKER CABRERA MD Oct 01, 2018 07:55
[2018-10-01] MEDS: PROPOFOL(*)1000 MG/100 ML VIAL 100 ML IV PRN ×3 (08:13→22:08)
[2018-10-01] MEDS: PANTOPRAZOLE SOD 40 MG IV VIAL IVP SCH (08:24)
[2018-10-01] MEDS: ENOXAPARIN 40 MG/0.4ML SYR SC SCH (08:25)
[2018-10-01] MEDS: PREGABALIN 150 MG CAPSULE FT SCH ×2 (08:25→21:40)
[2018-10-01] MEDS: MONTELUKAST SODIUM 10 MG TAB FT SCH (08:25)
[2018-10-01] MEDS: OSELTAMIVIR PHOS 75 MG CAP FT SCH ×2 (08:25→21:40)
[2018-10-01] MEDS: ASPIRIN 81 MG CHEW FT SCH (08:25)
[2018-10-01] MEDS: ORAL SUCTION/CHLORHX/SWAB KIT MT SCH ×2 (08:26→21:41)
--- NOTE | 2018-10-01 09:23 | Medical Nutrition Therapy ---
Nutrition Anthropometrics Height (Inches): 64.00 Height (Calculated Centimeters: 162.129264 Weight (Pounds): 132 Weight (Calculated Kilograms): 59.874 Kalyan Nutrition Score: Probably Inadequate Kalyan Nutrition Risk Score: 13 Dietary Referral Nutrition Risk Factors: Nutrition Risk Comment: Physical Findings Physical Appearance: Skin Appearance Skin Appearance: Edema Edema Location Modifier: Edema Location: Type of Edema: Degree of Edema: Gastrointestinal Symptoms GI Symtoms: Tube Present: OG Bowel Sounds: Recent Bowel Pattern: Stool Characteristics: Nutritional Diagnosis Nutritional Risk Acuity 1: Pulm Fail Vent Nutritional Risk Acuity 3: GERD Past Medical History: COPD, dementia, hypothyroid, GERD, multiple lacunar infarcts, chronic pain syndrome Nutritional Acuity: 1-High Nutrition Diagnosis: Decreased Nutrient Needs Nutrition Etiology: Medications Nutrition Problem/Etiology/Sym: Decreased nutrient needs (lipids) as related to medications as evidenced by propofol. Energy Requirement: 1473 (M St JeorX 1.1X1.2) Protein Requirement: 48 (0.8 g protein/kg) Fluid Requirement: 1500 (kgX25) Diet Type: Tube Feeding (TF) Nutrition Intervention: Incr diet as tolerated Nutritional Support Recommended Enteral / Parental: Tube Feeding Recommended Tube Feeding Formu: Jevity 1cal/ml-Standard Recommended Tube Feeding Formu: Recommend low lipid formula Tube Feeding Supplement Streng: Full Recommended Feeding Route: FT Placed Nasogastric Recommended Rate: 9.7mL/hr (20% of goal rate) Recommended Goal Rate: 48.5mL/hr Recommended Duration: 24 Recommended Feeding Comment: propofol will provided 362.4 g fat/ day at rate of 15.1mL/hr Recommended Calories: 1473 Recommended Protein: 48 Recommended Lipids Calories: 342 (+362 from [id number]) Total Recommended Calories: 1166 Nutrition Monitoring & Eval Nutrition Monitoring: Diet changed to TF RD Patient Assessment Time: [address] Assessment Type: RD Assessment Patient Nutrition Acuity: 1-High Follow Up Date: Oct 02, 2018 Nutritional Comment: Pt admitted with confusion. Dx with respiratory failure, bilateral pneumonia, influenza A, and agitation. Hx of COPD, dementia, hypothyroid, GERD, multiple lacunar infarcts, and chronic pain syndrome. Pt on NPO diet day 1. Pt on enoxaparin and propofol. Propofol contains 1.1 kcal of fat/mL. If TPN is indicated, low fat TPN is recommended. Pt RBC of 3.9 and hgb of 4.05 are decreased. BUN of 23 is elevated. K of 3.2 is decreased while Cl of 108 is elevated. Random glucose of 145 is slightly elevated. Albumin of 2.8 and total protein of 5.1 are decreased. Troponin is icreased at 0.454, a marker for cardiac muscle damage. Monitor for progression of diet, or TPN. -[facility] 10/01 Pt remains intubated and sedated with propofol (1.1kcal/mL). Pt diet progressed to TF diet as of morning of 10/01. Recommend low fat TF. Pt also taking enoxaparin. Pt RBC are still decreased at 3.81 as is Hgb of 11.9. BUN is elevated at 25. Random glucose of 128 is slightly increased. Ca is decreased at 7.7 Troponin I has improved from 0.454 to 0.365. Monitor for TF tolerance. TF Jevity at 1166 mLK/day will meet 78% of kcal needs, 100% of protein needs, while limiting lipids due to propofol. Recommend rate of 9.7mL/hr to start with goal rate of 48.5mL/hr. -INMARIANA DOWELL Oct 01, 2018 09:23
[2018-10-01] MEDS: NS(*) 0.9% 1000 ML BAG 1,000 ML IV PRN ×2 (12:49→18:26)
[2018-10-01] MEDS: MIDAZOLAM 50 MG/10 ML VIAL 100 MG in NS(*) 0.9% 100 ML BAG 80 ML IV PRN (12:49)
--- NOTE | 2018-10-01 12:55 | NUR ---
Upon bolus of 30cc H2O flush, patient started to cough. Tube feed came out through mouth. However, no tube feeding was noted upon EET suction. Lung sounds are unchanged from lunchtime assessment. Tube feeding stopped, Dr. Ferrer notified, KUB ordered to recheck tube placement
--- NOTE | 2018-10-01 13:53 | RADIOLOGY IMAGING REPORT ---
FACILITY: [facility] PATIENT NAME: Shantell Barnes : 1950 MR: [id number] V: [id number] EXAM DATE: ORDERING PHYSICIAN: WALKER CABRERA TECHNOLOGIST: Location: [facility] - [place] Patient: Shantell Barnes : 1950 Visit/Account:[id number] Date of Sevice: 10/01/2018 KUB SINGLE VIEW ABDOMEN Indication: Orogastric tube placement for feeding. Comparison: None. Findings: Single image demonstrates a nasogastric tube with its tip in the body stomach. IMPRESSION: Nasogastric tube with tip identified in the body the stomach. This could be advanced 1 to 2 cm for slightly better positioning. Report Dictated By: Ankit Neil at 10/01/2018 1:49 PM Report E-Signed By: Ankit Neil at 10/01/2018 1:50 PM WSN:[id number]
[2018-10-01] MEDS: cefTRIAXone(*) 2 GM VIAL 2 GM in NS(*) 0.9% 100 ML ADDVANT BAG 100 ML IVPB SCH (18:26)
--- NOTE | 2018-10-01 21:32 | Procedure Note ---
Central Line Procedure Note Indication for Central Line: IV access, blood draws Consent Signed: Yes Central Line Lumen: Triple Central Line Procedure: Chlorhexidine Prep, Sterile Drapes Applied, Sterile Dressing Applied Central Line Position: R Femoral Anesthesia Used: 1% Lidocaine CC's of Anesthesia: 3 Complications: None Central Line Post Position: Sutured, Confirmed Blood Return Comment US used to identify the R femoral vein. Area prepped in a sterile fashion. US used for guidance in needle placement. Dark, non-pulsatile blood return with one attempt. Seldinger technique used to place triple lumen. WALKER CABRERA MD Oct 01, 2018 21:32
[2018-10-01] MEDS: AZITHROMYCIN(*) 500 MG 500 MG in NS(*) 0.9% 250 ML BAG 250 ML IVPB SCH (22:08)
[2018-10-02] VITALS (94 sets, daily range): BP systolic 90–123; BP diastolic 61–87
[2018-10-02] MEDS: methylPREDNIS SUCC 125 MG/2ML IVP SCH ×3 (01:13→17:07)
[2018-10-02] MEDS ORDERED: DILTIAZEM 5 MG/ML 5ML IVPUSH IVP ONE (01:35)
[2018-10-02] MEDS: DILTIAZEM HCL 125 MG/25 ML SDV 125 MG in NS(*) 0.9% 100 ML BAG 100 ML IV SCH ×3 (01:35→19:19)
[2018-10-02] MEDS ORDERED: DILTIAZEM 5 MG/ML 5ML IVPUSH ONE ×2 (01:54→02:03)
[2018-10-02] MEDS ORDERED: NS(*) 0.9% 100 ML BAG 100 ML ONE (02:04)
[2018-10-02] MEDS: NS(*) 0.9% 500 ML BAG 500 ML IV PRN (02:16)
[2018-10-02] MEDS: PROPOFOL(*)1000 MG/100 ML VIAL 100 ML IV PRN ×3 (04:17→20:44)
[2018-10-02] MEDS: ALBUTEROL/IPRATROPIUM 3 ML NEB NEB SCH ×3 (05:30→16:56)
[2018-10-02 05:48] LABS: PLATELET COUNT, AUTOMATED 206 K/uL (150-450)
--- NOTE | 2018-10-02 06:39 | EKG ---
FACILITY: [facility] - [place] PATIENT NAME: KIERA GARCIA : [id number] MR: [id number] V: [id number] EXAM DATE: ORDERING PHYSICIAN: WALKER CABRERA TECHNOLOGIST: ANGELES Test Reason : A FIB Blood Pressure : / mmHG Vent. Rate : 130 BPM Atrial Rate : 125 BPM P-R Int : 000 ms QRS Dur : 084 ms QT Int : 296 ms P-R-T Axes : 000 047 074 degrees QTc Int : 435 ms Atrial fibrillation with rapid ventricular response Anteroseptal infarct (cited on or before 29-SEP-2018) Abnormal ECG When compared with ECG of 29-SEP-2018 20:07, Atrial fibrillation has replaced Sinus rhythm QRS axis shifted right T wave inversion now evident in Anterior leads Confirmed by WALKER CABRERA ([id number]) on 10/02/2018 7:31:02 AM Referred By: Confirmed By:WALKER CABRERA
[2018-10-02] MEDS ORDERED: DIGOXIN 0.5 MG/2 ML AMP IVP ONE (08:16)
[2018-10-02] MEDS: MONTELUKAST SODIUM 10 MG TAB FT SCH (08:41)
[2018-10-02] MEDS: PANTOPRAZOLE SOD 40 MG IV VIAL IVP SCH (08:41)
[2018-10-02] MEDS: ENOXAPARIN 40 MG/0.4ML SYR SC SCH (08:42)
[2018-10-02] MEDS: PREGABALIN 150 MG CAPSULE FT SCH ×2 (08:42→20:43)
[2018-10-02] MEDS: ORAL SUCTION/CHLORHX/SWAB KIT MT SCH ×2 (08:42→20:43)
[2018-10-02] MEDS: ASPIRIN 81 MG CHEW FT SCH (08:42)
[2018-10-02] MEDS: OSELTAMIVIR PHOS 75 MG CAP FT SCH ×2 (08:48→20:43)
--- NOTE | 2018-10-02 10:51 | Hospitalist Progress Note ---
Subjective Progress Notes Subjective This patient was admitted for respiratory failure secondary to influenza. She had no acute events overnight. Patient Complains of: Cardiovascular: No: Chest Pain Respiratory: No: Shortness of Breath Physical Exam Vital Signs Date Time Temp Pulse Resp B/P (MAP) Pulse Ox O2 Delivery O2 Flow Rate FiO2 10/02/18 09:05 55.0 10/02/18 08:59 127 25 10/02/18 08:59 97 Mechanical Ventilator 10/02/18 08:45 105/75 (85) 10/02/18 08:00 99.0 Intake and Output 10/02/18 07:00 Intake Total 4205.0 ml Output Total 1069 ml Balance 3136.0 ml IV Total 3248.0 ml Tube Feeding 767 ml Tube Irrigant 190 ml Output Urine Total 1069 ml Neuro: Other (Sedated) Cardiovascular: Regular Rate and Rhythm Respiratory: Other (Bilateral breath sounds present.) Extremities: No Edema Integumentary: No Cyanosis Result Diagram: 10/02/1842710/02/18427 Assessment and Plan Problems: (1) Respiratory failure Status: Acute Assessment & Plan: She was intubated at admission. She is receiving Versed and propofol for sedation. She is currently tolerating CPAP. We will continue weaning parameters through today, and hopefully extubate tomorrow. (2) Bilateral pneumonia Status: Acute Assessment & Plan: Her chest x-ray has shown bilateral infiltrates. She is on empiric treatment with ceftriaxone and azithromycin. Cultures have been negative. (3) Influenza A Status: Acute Assessment & Plan: She is on treatment with Tamiflu. (4) Agitation Status: Acute Assessment & Plan: She presented very confused, agitated and not following commands. It was likely secondary to hypoxia and illness. A head CT was negative for acute issues. (5) COPD (chronic obstructive pulmonary disease) Status: Chronic Assessment & Plan: Chronically on Singulair and albuterol, which will be continued. She is receiving IV Methylprednisolone and scheduled nebs. (6) Elevated troponin Status: Acute Assessment & Plan: Her troponin did increase, but her EKG did not show any ischemic findings. Her levels are improving with treatment of the underlying infection. (7) Multiple lacunar infarcts Status: Chronic Assessment & Plan: Chronically on ASA which will be continued. (8) Chronic pain syndrome Status: Chronic Assessment & Plan: She is chronically on Lyrica and hydromorphone. Those were held initially. Lyrica has been restarted. Exam Sepsis Risk: Severe Sepsis Risk Problem Qualifiers (1) Respiratory failure: Chronicity: acute Respiratory failure complication: hypoxia Qualified Codes: J96.01 - Acute respiratory failure with hypoxia (2) Bilateral pneumonia: Pneumonia type: due to unspecified organism Lung location: unspecified part of lung Qualified Codes: J18.9 - Pneumonia, unspecified organism MARGARITO CLEANING DO Oct 02, 2018 10:51
[2018-10-02] MEDS: NS(*) 0.9% 1000 ML BAG 1,000 ML IV PRN ×3 (11:21→20:44)
[2018-10-02] MEDS: MIDAZOLAM 50 MG/10 ML VIAL 100 MG in NS(*) 0.9% 100 ML BAG 80 ML IV PRN (14:36)
--- NOTE | 2018-10-02 15:01 | Medical Nutrition Therapy ---
Nutrition Anthropometrics Height (Inches): 64.00 Height (Calculated Centimeters: 162.187215 Weight (Pounds): 146 Weight (Calculated Kilograms): 66.451 Kalyan Nutrition Score: Adequate Kalyan Nutrition Risk Score: 14 Dietary Referral Nutrition Risk Factors: Nutrition Risk Comment: Physical Findings Physical Appearance: Skin Appearance Skin Appearance: Edema Edema Location Modifier: Edema Location: Type of Edema: Degree of Edema: Gastrointestinal Symptoms GI Symtoms: Tube Present: OG Bowel Sounds: Recent Bowel Pattern: Stool Characteristics: Nutritional Diagnosis Nutritional Risk Acuity 1: Pulm Fail Vent Nutritional Risk Acuity 3: GERD Past Medical History: COPD, dementia, hypothyroid, GERD, multiple lacunar infarcts, chronic pain syndrome Nutritional Acuity: 1-High Nutrition Diagnosis: Decreased Nutrient Needs Nutrition Etiology: Medications Nutrition Problem/Etiology/Sym: Decreased nutrient needs (lipids) as related to medications as evidenced by propofol. Energy Requirement: 1525 (M St JeorX 1.1X1.3) Protein Requirement: 66 (1g protein/kg) Fluid Requirement: 1500 (kgX25) Diet Type: Tube Feeding (TF) Nutrition Intervention: Incr diet as tolerated Nutritional Support Current Enteral / Parental: Tube Feeding Tube Feeding Formulas: Jevity 1cal/ml-Standard Tube Feeding Supplement Streng: Full Rate: 20 increase 10 q4 hours to final rate of 70mL/hr Current Duration: 24 Current Calories: 1780 Current Protein: 74 Current Lipids Calories: 298 Total Current Calories: 2078 Recommended Enteral / Parental: Tube Feeding Recommended Tube Feeding Formu: Jevity 1cal/ml-Standard Tube Feeding Supplement Streng: Full Recommended Feeding Route: FT Placed Nasogastric Recommended Goal Rate: 55mL/hr Recommended Duration: 24 Recommended Calories: 1399 Recommended Protein: 58 Recommended Lipids Calories: 298 (+362 from [id number]) Total Recommended Calories: 1697 Nutrition Monitoring & Eval RD Patient Assessment Time: [address] Assessment Type: RD Assessment Patient Nutrition Acuity: 1-High Follow Up Date: Oct 05, 2018 Nutritional Comment: Pt admitted with confusion. Dx with respiratory failure, bilateral pneumonia, influenza A, and agitation. Hx of COPD, dementia, hypothyroid, GERD, multiple lacunar infarcts, and chronic pain syndrome. Pt on NPO diet day 1. Pt on enoxaparin and propofol. Propofol contains 1.1 kcal of fat/mL. If TPN is indicated, low fat TPN is recommended. Pt RBC of 3.9 and hgb of 4.05 are decreased. BUN of 23 is elevated. K of 3.2 is decreased while Cl of 108 is elevated. Random glucose of 145 is slightly elevated. Albumin of 2.8 and total protein of 5.1 are decreased. Troponin is icreased at 0.454, a marker for cardiac muscle damage. Monitor for progression of diet, or TPN. -[facility] 10/01 Pt remains intubated and sedated with propofol (1.1kcal/mL). Pt diet progressed to TF diet as of morning of 10/01. Recommend low fat TF. Pt also taking enoxaparin. Pt RBC are still decreased at 3.81 as is Hgb of 11.9. BUN is elevated at 25. Random glucose of 128 is slightly increased. Ca is decreased at 7.7 Troponin I has improved from 0.454 to 0.365. Monitor for TF tolerance. TF Jevity at 1166 mLK/day will meet 78% of kcal needs, 100% of protein needs, while limiting lipids due to propofol. Recommend rate of 9.7mL/hr to start with goal rate of 48.5mL/hr. -[facility] 10/02: Pt on tube feeding diet day 1. Pt has elevated BUN (2.9), RBG (280), and troponin 1 (0.204) levels. Pt has decreased albumin (2.7). Current tube feeding meets 136% of kcal needs and 113% of protein needs. Recommend 55ml/hr of Jevity to meet 88% protein needs and 11% of kcal needs with current propofal. Monitor for progression of diet. -CARLA JERONIMO Oct 02, 2018 08:58
[2018-10-02] MEDS ORDERED: FLUT1BLS3 PO (15:54)
[2018-10-02] MEDS: cefTRIAXone(*) 2 GM VIAL 2 GM in NS(*) 0.9% 100 ML ADDVANT BAG 100 ML IVPB SCH (18:39)
--- NOTE | 2018-10-02 19:55 | Antimicrobial Stewardship ---
Antimicrobial Time Out Antimicrobial Stewardship MD Service: Hospitalist Indications: CAP, Other (INFLUENZA) Antimicrobial Used TAMIFLU 75MG FT BID, CEFTRIAXONE 2G IV Q24H AND AZITHROMYCIN 500MG IV Q24H Start Date: Sep 29, 2018 Culture Results: No (BLOOD - PENDING, NO GROWTH) Eligible for PO Conversion Eligable for PO Conversion: No Reviewed with Provider Reviewed w/ Provider on Rounds: No Comments Comments Patient was admitted for respiratory failure due to influenza and pneumonia. Tamiflu, Ceftriaxone and Azithromycin were started upon admission. Patient continues to have fevers and is on mechanical ventilation at this time. Blood cultures are negative thus far. Continue antibiotic therapy and watch for clinical response. Narrow therapy as indicated by blood cultures. CHINMAY LARSEN Oct 02, 2018 19:55
[2018-10-02] MEDS: AZITHROMYCIN(*) 500 MG 500 MG in NS(*) 0.9% 250 ML BAG 250 ML IVPB SCH (22:30)
[2018-10-03] VITALS (76 sets, daily range): BP systolic 118–161; BP diastolic 76–106
[2018-10-03 05:15] LABS: PLATELET COUNT, AUTOMATED 220 K/uL (150-450)
[2018-10-03] MEDS: ALBUTEROL/IPRATROPIUM 3 ML NEB NEB SCH ×3 (05:41→16:41)
--- NOTE | 2018-10-03 06:11 | RADIOLOGY IMAGING REPORT ---
FACILITY: [facility] - [place] PATIENT NAME: Shantell Barnes : 1950 MR: [id number] V: [id number] EXAM DATE: ORDERING PHYSICIAN: MARGARITO CLEANING TECHNOLOGIST: Location: [facility] - [place] Patient: Shantell Barnes : 1950 Visit/Account:[id number] Date of Sevice: 10/03/2018 Portable chest: Indication: Pneumonia. Technique: A single frontal film was obtained. Comparison: 10/01/2018 Lines and tubes: The ET tube and NG tube remain in satisfactory position. Skeletal and soft tissue structures: Intact and unchanged. Heart and mediastinum: Within normal limits. Lung dykes: There has been partial resolution of the bilateral upper lobe opacities. No new focal ab normalities are identified. Pleural spaces: No evidence of pneumothorax or effusion. Impression: Partial resolution of the upper lobe opacities. Report Dictated By: Romeo Haynes MD at 10/03/2018 6:05 AM Report E-Signed By: Romeo Haynes MD at 10/03/2018 6:07 AM WSN:[id number]
[2018-10-03] MEDS: ORAL SUCTION/CHLORHX/SWAB KIT MT SCH ×2 (07:59→21:53)
[2018-10-03] MEDS: ASPIRIN 81 MG CHEW FT SCH (08:31)
[2018-10-03] MEDS: OSELTAMIVIR PHOS 75 MG CAP FT SCH ×2 (08:31→21:52)
[2018-10-03] MEDS: ENOXAPARIN 40 MG/0.4ML SYR SC SCH (08:32)
[2018-10-03] MEDS: PREGABALIN 150 MG CAPSULE FT SCH ×2 (08:32→21:52)
[2018-10-03] MEDS: MONTELUKAST SODIUM 10 MG TAB FT SCH (08:32)
[2018-10-03] MEDS: PANTOPRAZOLE SOD 40 MG IV VIAL IVP SCH (08:34)
[2018-10-03] MEDS: methylPREDNIS SUCC 125 MG/2ML IVP SCH ×3 (08:35→16:52)
[2018-10-03] MEDS: INSULIN HUM LISPRO 100 UN/ML 3 ML VIAL SUBQ PRN ×2 (12:03→18:00)
--- NOTE | 2018-10-03 15:50 | Hospitalist Progress Note ---
Subjective Progress Notes Subjective 68F admitted for acute respiratory failure. Remains intubated and sedated this am. Physical Exam Vital Signs Date Time Temp Pulse Resp B/P (MAP) Pulse Ox O2 Delivery O2 Flow Rate FiO2 10/03/18 15:30 80 10/03/18 15:27 50.0 10/03/18 14:15 21 153/89 (110) 95 Mechanical Ventilator 10/03/18 13:00 99.5 Intake and Output 10/03/18 06:59 Intake Total 4866 ml Output Total 2140 ml Balance 2726 ml IV Total 3127 ml Tube Feeding 1429 ml Tube Irrigant 310 ml Output Urine Total 2140 ml General Appearance: Afebrile ENT: Normal (+ ET tube) Cardiovascular: Normal Rhythm & Peripheral Pulses Respiratory: Other (ventilated, coarse breath sounds) GI: Soft and Non-Tender Extremities: Soft and Non Tender, Warm, Pulses, Perfused Integumentary: Skin Intact without Lesion / Mass Result Diagram: 10/03/18 0448 10/03/18 0448 Assessment and Plan Problems: (1) Respiratory failure Status: Acute Assessment & Plan: She was intubated at admission. She is receiving propofol for sedation. Tolerating CPAP but on PEEP of 11, will continue to wean today. Daily sedation vacations. (2) Bilateral pneumonia Status: Acute Assessment & Plan: Her chest x-ray has shown bilateral infiltrates. She is on empiric treatment with ceftriaxone and azithromycin. Cultures have been negative. (3) Influenza A Status: Acute Assessment & Plan: She is on treatment with Tamiflu. (4) Agitation Status: Acute Assessment & Plan: She presented very confused, agitated and not following commands. It was likely secondary to hypoxia and illness. A head CT was negative for acute issues. (5) COPD (chronic obstructive pulmonary disease) Status: Chronic Assessment & Plan: Chronically on Singulair and albuterol, which will be continued. She is receiving IV Methylprednisolone and scheduled nebs. (6) Elevated troponin Status: Acute Assessment & Plan: Her troponin did increase due to demand ischemia, but her EKG did not show any acute findings. Her levels are improving with treatment of the underlying infection. (7) Multiple lacunar infarcts Status: Chronic Assessment & Plan: Chronically on ASA which will be continued. (8) Chronic pain syndrome Status: Chronic Assessment & Plan: She is chronically on Lyrica and hydromorphone. Those were held initially. Lyrica has been restarted, PRN morphine. Exam Sepsis Risk: No Definite Risk Problem Qualifiers (1) Respiratory failure: Chronicity: acute Respiratory failure complication: hypoxia Qualified Codes: J96.01 - Acute respiratory failure with hypoxia (2) Bilateral pneumonia: Pneumonia type: due to unspecified organism Lung location: unspecified part of lung Qualified Codes: J18.9 - Pneumonia, unspecified organism EUGENIA BUTTS DO Oct 03, 2018 15:50
[2018-10-03] MEDS: MORPHINE 2 MG/ML SYR IVP PRN ×2 (15:57→18:02)
[2018-10-03] MEDS: PROPOFOL(*)1000 MG/100 ML VIAL 100 ML IV PRN ×2 (16:36→23:40)
[2018-10-03] MEDS: NS(*) 0.9% 1000 ML BAG 1,000 ML IV PRN ×2 (16:52→17:38)
[2018-10-03] MEDS ORDERED: DICL100G39 TOP (17:44)
[2018-10-03] MEDS ORDERED: HYDR2TAB4 PO (17:47)
[2018-10-03] MEDS ORDERED: AMIT100T53 PO (17:47)
[2018-10-03] MEDS: ACETAMINOPHEN(*)1000 MG/100 ML 100 ML IVPB PRN (18:30)
[2018-10-03] MEDS: cefTRIAXone(*) 2 GM VIAL 2 GM in NS(*) 0.9% 100 ML ADDVANT BAG 100 ML IVPB SCH (18:31)
[2018-10-03] MEDS: AZITHROMYCIN(*) 500 MG 500 MG in NS(*) 0.9% 250 ML BAG 250 ML IVPB SCH (21:53)
[2018-10-04] VITALS (44 sets, daily range): BP systolic 134–163; BP diastolic 23–109
[2018-10-04] MEDS: MORPHINE 2 MG/ML SYR IVP PRN (00:10)
[2018-10-04] MEDS: DILTIAZEM HCL 125 MG/25 ML SDV 125 MG in NS(*) 0.9% 100 ML BAG 100 ML IV SCH (01:35)
[2018-10-04] MEDS: methylPREDNIS SUCC 125 MG/2ML IVP SCH ×3 (01:39→17:46)
[2018-10-04] MEDS: ACETAMINOPHEN(*)1000 MG/100 ML 100 ML IVPB PRN (04:38)
[2018-10-04 05:16] LABS: PLATELET COUNT, AUTOMATED 243 K/uL (150-450)
[2018-10-04] MEDS: ALBUTEROL/IPRATROPIUM 3 ML NEB NEB SCH ×3 (06:00→17:58)
--- NOTE | 2018-10-04 06:58 | RADIOLOGY IMAGING REPORT ---
FACILITY: [facility] - [place] PATIENT NAME: Shantell Barnes : 1950 MR: [id number] V: [id number] EXAM DATE: ORDERING PHYSICIAN: EUGENIA FUENTES TECHNOLOGIST: [place] [facility] [place]antell [place] : 1950 Visit/Account:[id number] Date of Sevice: 10/04/2018 CHEST SINGLE AP 10/04/2018 06:00 hours. HISTORY: Intubation. COMPARISON: 10/03/2018 and studies dating to 04/24/2006 TECHNIQUE: Portable AP view of the chest. FINDINGS: Tubes/lines/hardware: ET tube terminates 4.5 cm above the price. There are external chest leads. The re are a plate and screws from anterior cervical fusion. Pulmonary/pleura: No significant change in aeration. No pneumothorax. Cardiomediastinal: Cardiac and mediastinal silhouettes are within normal limits. Bones/soft tissues: No acute osseous abnormality. The visible abdomen is normal. IMPRESSION: 1. No significant interval change. Report Dictated By: Rosaura Weaver at 10/04/2018 6:51 AM Report E-Signed By: Rosaura Weaver at 10/04/2018 6:55 AM WSN:[id number]
[2018-10-04] MEDS: INSULIN HUM LISPRO 100 UN/ML 3 ML VIAL SUBQ PRN (08:23)
--- NOTE | 2018-10-04 08:42 | Hospitalist Progress Note ---
Subjective Progress Notes Subjective She has tolerated CPAP trials very well. She is awake and alert. Physical Exam Vital Signs Date Time Temp Pulse Resp B/P (MAP) Pulse Ox O2 Delivery O2 Flow Rate FiO2 10/04/18 07:05 15 10/04/18 07:03 88 10/04/18 07:03 93 Mechanical Ventilator 40.0 10/04/18 05:00 100.8 10/04/18 03:30 159/92 (114) Intake and Output 10/04/18 06:59 Intake Total 2696 ml Output Total 2460 ml Balance 236 ml Intake Oral 0 ml IV Total 1771 ml Tube Feeding 775 ml Tube Irrigant 150 ml Output Urine Total 2460 ml General Appearance: Alert, Awake Cardiovascular: Regular Rate and Rhythm Respiratory: Other (few scattered rhonchi) GI: Soft and Non-Tender Extremities: Warm, Perfused, Edema Result Diagram: 10/04/18 0500 10/04/18 0500 Item Value Date Time Oxygen Liters/Minute 40 10/04/18 0559 Jeremi Test Acceptable 10/04/18 0559 Arterial Blood Base Excess -1.0 mmol/L 10/04/18 0559 Arterial Blood Oxygen Saturation 91 % L 10/04/18 0559 Arterial Blood HCO3 23 mmol/L 10/04/18 0559 Arterial Blood Partial Pressure O2 62 mmHg 10/04/18 0559 Arterial Blood Partial Pressure CO2 34 mmHg 10/04/18 0559 Arterial Blood pH 7.44 10/04/18 0559 Blood Gas Patient Temperature 100.8 DEGREES 10/04/18 0559 Blood Gas Puncture Site Left radial 10/04/18 0559 Imaging PATIENT NAME: Shantell Barnes : 1950 MR: [id number] V: [id number] EXAM DATE: ORDERING PHYSICIAN: EUGENIA FUENTES TECHNOLOGIST: Location: [facility] - [place] Patient: Shantell Barnes : 1950 Visit/Account:[id number] Date of Sevice: 10/04/2018 CHEST SINGLE AP 10/04/2018 06:00 hours. HISTORY: Intubation. COMPARISON: 10/03/2018 and studies dating to 04/24/2006 TECHNIQUE: Portable AP view of the chest. FINDINGS: Tubes/lines/hardware: ET tube terminates 4.5 cm above the price. There are external chest leads. There are a plate and screws from anterior cervical fusion. Pulmonary/pleura: No significant change in aeration. No pneumothorax. Cardiomediastinal: Cardiac and mediastinal silhouettes are within normal limits. Bones/soft tissues: No acute osseous abnormality. The visible abdomen is normal. IMPRESSION: 1. No significant interval change. Report Dictated By: Rosaura Weaver at 10/04/2018 6:51 AM Report E-Signed By: Rosaura Weaver at 10/04/2018 6:55 AM WSN:[id number] Assessment and Plan Problems: (1) Respiratory failure Status: Acute Assessment & Plan: She was intubated at admission. She has been receiving propofol for sedation (now off). She has been tolerating CPAP fairly well. Oxygen requirement is down. ABG looks good. Should be able to extubate today. (2) Bilateral pneumonia Status: Acute Assessment & Plan: Her chest x-ray has shown bilateral infiltrates. She is on empiric treatment with IV ceftriaxone and azithromycin as well as the Tamiflu. Cultures have been negative. (3) Influenza A Status: Acute Assessment & Plan: She is on treatment with Tamiflu. (4) Agitation Status: Acute Assessment & Plan: She presented very confused, agitated and not following commands. It was likely secondary to hypoxia and acute illness (on top of an underlying dementia). A head CT was negative for acute issues. (5) COPD (chronic obstructive pulmonary disease) Status: Chronic Assessment & Plan: Chronically on Singulair and albuterol, which have been continued. She is receiving IV Methylprednisolone and scheduled nebulizer therapy. (6) Elevated troponin Status: Acute Assessment & Plan: Her troponin did increase due to demand ischemia, but her EKG did not show any acute findings. Her levels have trended downwards. (7) Multiple lacunar infarcts Status: Chronic Assessment & Plan: Chronically on ASA which will be continued. (8) Chronic pain syndrome Status: Chronic Assessment & Plan: She is chronically on Lyrica and hydromorphone. Those were held initially. Lyrica has been restarted, PRN morphine. Exam Sepsis Risk: No Definite Risk Problem Qualifiers (1) Respiratory failure: Chronicity: acute Respiratory failure complication: hypoxia Qualified Codes: J96.01 - Acute respiratory failure with hypoxia (2) Bilateral pneumonia: Pneumonia type: due to unspecified organism Lung location: unspecified part of lung Qualified Codes: J18.9 - Pneumonia, unspecified organism LYLY DOWNEY MD Oct 04, 2018 08:42
[2018-10-04] MEDS ORDERED: BISACODYL 10 MG SUPP PR PRN (08:45)
[2018-10-04] MEDS: ORAL SUCTION/CHLORHX/SWAB KIT MT SCH (09:00)
[2018-10-04] MEDS ORDERED: OSELTAMIVIR PHOS 75 MG CAP PO SCH (09:00)
[2018-10-04] MEDS: ENOXAPARIN 40 MG/0.4ML SYR SC SCH (09:22)
[2018-10-04] MEDS: PANTOPRAZOLE SOD 40 MG IV VIAL IVP SCH (09:22)
[2018-10-04] MEDS: PREGABALIN 150 MG CAPSULE FT SCH ×2 (11:35→21:17)
[2018-10-04] MEDS: MONTELUKAST SODIUM 10 MG TAB PO SCH (11:41)
[2018-10-04] MEDS: ASPIRIN 81 MG CHEW PO SCH (11:42)
[2018-10-04] MEDS: OSELTAMIVIR PHOS 75 MG CAP FT SCH ×2 (11:45→21:17)
[2018-10-04] MEDS: NS(*) 0.9% 1000 ML BAG 1,000 ML IV PRN (12:49)
[2018-10-04] MEDS: cefTRIAXone(*) 2 GM VIAL 2 GM in NS(*) 0.9% 100 ML ADDVANT BAG 100 ML IVPB SCH (20:09)
[2018-10-04] MEDS ORDERED: WATER STERILE ONE (21:44)
[2018-10-04] MEDS: AZITHROMYCIN(*) 500 MG 500 MG in NS(*) 0.9% 250 ML BAG 250 ML IVPB SCH (21:48)
[2018-10-04] MEDS ORDERED: VANCOMYCIN(*) 1 GM VIAL 1 GM, VANCOMYCIN (*) 0.5 GM VIAL 0.5 GM in NS(*) 0.9% 250 ML BA... IVPB ONE ×2 (22:00→23:00)
[2018-10-05] VITALS (46 sets, daily range): BP systolic 79–153; BP diastolic 68–104
[2018-10-05] MEDS: methylPREDNIS SUCC 125 MG/2ML IVP SCH ×3 (00:51→20:38)
[2018-10-05] MEDS: NS(*) 0.9% 1000 ML BAG 1,000 ML IV PRN ×2 (00:51→13:06)
[2018-10-05] MEDS: ALBUTEROL/IPRATROPIUM 3 ML NEB NEB SCH ×3 (05:14→17:20)
[2018-10-05 05:16] LABS: PLATELET COUNT, AUTOMATED 273 K/uL (150-450)
[2018-10-05] MEDS: PREGABALIN 150 MG CAPSULE FT SCH ×2 (09:45→20:37)
[2018-10-05] MEDS: PANTOPRAZOLE SOD 40 MG TABEC PO SCH (09:45)
[2018-10-05] MEDS: MONTELUKAST SODIUM 10 MG TAB PO SCH (09:45)
[2018-10-05] MEDS: ASPIRIN 81 MG CHEW PO SCH (09:45)
[2018-10-05] MEDS: OSELTAMIVIR PHOS 75 MG CAP FT SCH ×2 (09:45→20:37)
[2018-10-05] MEDS: ENOXAPARIN 40 MG/0.4ML SYR SC SCH (09:46)
[2018-10-05] MEDS: ACETAMINOPHEN(*)1000 MG/100 ML 100 ML IVPB PRN (09:56)
--- NOTE | 2018-10-05 10:26 | Pharmacy Note ---
Vancomycin Management Note Vanco Dosing Note Pharmacy Services Pharmacokinetic Dosing Consult, Vancomycin Pharmacy has been consulted for dosing and monitoring of vancomycin for 68 year old female for bilateral pneumonia. Pertinent Past Medical History: Influenza A, Respiratory failure, Bilateral Pneumonia, COPD Additional Antimicrobials: Was started initially on Ceftriaxone and Azithromycin IV. Now on Azithromycin IV and Vancomycin. Patient Information: Height (cm): 162.56 cm Actual Body Weight (ABW): 70 kg Pertinent Lab Tests WHITE BLOOD COUNT 13.4 NEUTROPHILS 84.1 yesterday SCR 0.5 (using 0.8 for calculations) Culture Results: BLOOD NGTD Assessment: CrCl ~57 ml/min (IBW) Renal function is stable. Vancomycin Monitoring Assessment Goal Vancomycin Trough Level: 15-20 Plan: 1) Vancomycin 25 mg/kg loading dose (based on ABW): 1500 mg IV (~22 mg/kg) x 1 2) Vancomycin maintenance dose (based on ABW): 1 gm IV q12h 3) Vancomycin monitoring: trough level due 10/06/18 1100 before 4th dose. Pharmacy will continue to monitor daily and adjust regimen as appropriate. Thank you for the consult. MARTINE HEMPHILL Oct 05, 2018 10:26
--- NOTE | 2018-10-05 10:43 | Medical Nutrition Therapy ---
Nutrition Anthropometrics Height (Inches): 64.00 Height (Calculated Centimeters: 162.306411 Weight (Pounds): 154 Weight (Calculated Kilograms): 69.853 BMI: 26.4 Kalyan Nutrition Score: Adequate Kalyan Nutrition Risk Score: 14 Dietary Referral Nutrition Risk Factors: Nutrition Risk Comment: Physical Findings Physical Appearance: Skin Appearance Skin Appearance: Edema Edema Location Modifier: Left Edema Location: Hand Type of Edema: Degree of Edema: 1+ Gastrointestinal Symptoms GI Symtoms: Tube Present: OG Bowel Sounds: Recent Bowel Pattern: Stool Characteristics: Nutritional Diagnosis Nutritional Risk Acuity 1: Pulm Fail Vent Nutritional Risk Acuity 3: GERD Past Medical History: COPD, dementia, hypothyroid, GERD, multiple lacunar infarcts, chronic pain syndrome Nutritional Acuity: 1-High Nutrition Diagnosis: Decreased Nutrient Needs Nutrition Etiology: Medications Nutrition Problem/Etiology/Sym: Decreased nutrient needs (lipids) as related to medications as evidenced by propofol. Energy Requirement: 1525 (M St JeorX 1.1X1.3) Protein Requirement: 66 (1g protein/kg) Fluid Requirement: 1500 (kgX25) Diet Type: Dysphagia Stage 2 Nutrition Intervention: Cont diet as ordered, Incr diet as tolerated Nutrition Monitoring & Eval Nutrition Goals: Eat 50-100% Meal Nutrition Monitoring: Offer clear liquid supplement RD Patient Assessment Time: [address] Assessment Type: RD Re-Assessment Patient Nutrition Acuity: 1-High Follow Up Date: Oct 08, 2018 Nutritional Comment: Pt admitted with confusion. Dx with respiratory failure, bilateral pneumonia, influenza A, and agitation. Hx of COPD, dementia, hypothyroid, GERD, multiple lacunar infarcts, and chronic pain syndrome. Pt on NPO diet day 1. Pt on enoxaparin and propofol. Propofol contains 1.1 kcal of fat/mL. If TPN is indicated, low fat TPN is recommended. Pt RBC of 3.9 and hgb of 4.05 are decreased. BUN of 23 is elevated. K of 3.2 is decreased while Cl of 108 is elevated. Random glucose of 145 is slightly elevated. Albumin of 2.8 and total protein of 5.1 are decreased. Troponin is icreased at 0.454, a marker for cardiac muscle damage. Monitor for progression of diet, or TPN. -AKG 10/01 Pt remains intubated and sedated with propofol (1.1kcal/mL). Pt diet progressed to TF diet as of morning of 10/01. Recommend low fat TF. Pt also taking enoxaparin. Pt RBC are still decreased at 3.81 as is Hgb of 11.9. BUN is elevated at 25. Random glucose of 128 is slightly increased. Ca is decreased at 7.7 Troponin I has improved from 0.454 to 0.365. Monitor for TF tolerance. TF Jevity at 1166 mLK/day will meet 78% of kcal needs, 100% of protein needs, while limiting lipids due to propofol. Recommend rate of 9.7mL/hr to start with goal rate of 48.5mL/hr. -AKG 10/02: Pt on tube feeding diet day 1. Pt has elevated BUN (2.9), RBG (280), and troponin 1 (0.204) levels. Pt has decreased albumin (2.7). Current tube feeding meets 136% of kcal needs and 113% of protein needs. Recommend 55ml/hr of Jevity to meet 88% protein needs and 11% of kcal needs with current propofal. Monitor for progression of diet. -JJ 10/05: Pt experiencing 1+ pitting edema. Pt has decreased albumin (2.7) and creatinine (0.50). Pt has elevated BUN (23), RBG (150-221), and WBG (231-307). Pt currently on dysphagia 2 diet. Off tube feeding. Monitor for progression of diet. -CARLA JERONIMO Oct 05, 2018 08:52
[2018-10-05] MEDS: VANCOMYCIN(*) 1 GM VIAL 1 GM in NS(*) 0.9% 250 ML BAG 250 ML IVPB SCH ×2 (11:51→22:36)
--- NOTE | 2018-10-05 13:53 | Hospitalist Progress Note ---
Subjective Progress Notes Subjective 68F admitted for respiratory arrest. Still requiring a lot of O2, change to HHF to get more humidity in hope of loosening secretions. Patient Complains of: Respiratory: Cough Gastrointestinal: No Nausea, No Vomiting Physical Exam Vital Signs Date Time Temp Pulse Resp B/P (MAP) Pulse Ox O2 Delivery O2 Flow Rate FiO2 10/05/18 11:11 74 18 10/05/18 11:05 93 Vapotherm 30.0 90.0 10/05/18 04:00 148/96 (113) 10/04/18 23:00 99.2 Intake and Output 10/05/18 07:00 Intake Total 1822 ml Output Total 3725 ml Balance -1903 ml Intake Oral 100 ml IV Total 1722 ml Output Urine Total 3725 ml General Appearance: Alert, Awake, No Acute Distress, Afebrile Neuro: No Gross deficits Cardiovascular: Normal Rhythm & Peripheral Pulses Respiratory: Other (coarse breathsounds b/l) GI: Soft and Non-Tender Extremities: Soft and Non Tender, Warm, Pulses, Perfused Result Diagram: 10/05/18 0506 10/05/18 0506 Assessment and Plan Problems: (1) Respiratory failure Status: Acute Assessment & Plan: She was intubated at admission. Extubated 10.04.2018. HHFNC initated to provide more humidity in attempt to loosen secretions. (2) Bilateral pneumonia Status: Acute Assessment & Plan: Her chest x-ray has shown bilateral infiltrates. She is on empiric treatment with IV ceftriaxone and azithromycin as well as the Tamiflu. BCx 10.03.2018 after she became febrile growing GPC. Vancomycin added to regimen. (3) Influenza A Status: Acute Assessment & Plan: She is on treatment with Tamiflu. (4) Agitation Status: Acute Assessment & Plan: Resolved. She presented very confused, agitated and not following commands. It was likely secondary to hypoxia and acute illness (on top of an underlying dementia). A head CT was negative for acute issues. (5) COPD (chronic obstructive pulmonary disease) Status: Chronic Assessment & Plan: Chronically on Singulair and albuterol, which have been continued. She is receiving IV Methylprednisolone and scheduled nebulizer therapy. Weaning steroid. (6) Elevated troponin Status: Acute Assessment & Plan: Her troponin did increase due to demand ischemia, but her EKG did not show any acute findings. Her levels have trended downwards. (7) Multiple lacunar infarcts Status: Chronic Assessment & Plan: Chronically on ASA which will be continued. (8) Chronic pain syndrome Status: Chronic Assessment & Plan: She is chronically on Lyrica and hydromorphone. Those were held initially. Lyrica has been restarted, PRN morphine. Exam Sepsis Risk: No Definite Risk Problem Qualifiers (1) Respiratory failure: Chronicity: acute Respiratory failure complication: hypoxia Qualified Codes: J96.01 - Acute respiratory failure with hypoxia (2) Bilateral pneumonia: Pneumonia type: due to unspecified organism Lung location: unspecified part of lung Qualified Codes: J18.9 - Pneumonia, unspecified organism EUGENIA BUTTS DO Oct 05, 2018 13:53
[2018-10-05] MEDS: cefTRIAXone(*) 2 GM VIAL 2 GM in NS(*) 0.9% 100 ML ADDVANT BAG 100 ML IVPB SCH (18:36)
[2018-10-05] MEDS ORDERED: METOPROLOL TART 5 MG/5 ML VIAL IVP PRN (19:25)
[2018-10-05] MEDS ORDERED: DIGOXIN 0.5 MG/2 ML AMP IVP ONE (20:20)
[2018-10-05] MEDS: AZITHROMYCIN(*) 500 MG 500 MG in NS(*) 0.9% 250 ML BAG 250 ML IVPB SCH (21:25)
[2018-10-06] VITALS (48 sets, daily range): BP systolic 94–153; BP diastolic 75–124
[2018-10-06] MEDS: NS(*) 0.9% 1000 ML BAG 1,000 ML IV PRN ×2 (01:56→14:04)
[2018-10-06] MEDS: DIGOXIN 0.5 MG/2 ML AMP IVP SCH ×2 (01:56→08:59)
[2018-10-06 05:23] LABS: PLATELET COUNT, AUTOMATED 258 K/uL (150-450)
[2018-10-06] MEDS: ALBUTEROL/IPRATROPIUM 3 ML NEB NEB SCH ×3 (05:37→18:11)
[2018-10-06] MEDS: NS(*) 0.9% 500 ML BAG 500 ML IV PRN (09:04)
[2018-10-06] MEDS: KCL (*) 20 MEQ/100 ML PREMIX 100 ML IV SCH ×2 (09:04→10:58)
[2018-10-06] MEDS: ASPIRIN 81 MG CHEW PO SCH (09:11)
[2018-10-06] MEDS: MONTELUKAST SODIUM 10 MG TAB PO SCH (09:12)
[2018-10-06] MEDS: PANTOPRAZOLE SOD 40 MG TABEC PO SCH (09:12)
[2018-10-06] MEDS: PREGABALIN 150 MG CAPSULE FT SCH (09:12)
[2018-10-06] MEDS: OSELTAMIVIR PHOS 75 MG CAP FT SCH ×2 (09:12→20:56)
[2018-10-06] MEDS: ENOXAPARIN 40 MG/0.4ML SYR SC SCH (09:13)
[2018-10-06] MEDS: methylPREDNIS SUCC 125 MG/2ML IVP SCH ×2 (09:13→20:57)
--- NOTE | 2018-10-06 09:15 | RADIOLOGY IMAGING REPORT ---
FACILITY: [facility] PATIENT NAME: Shantell Barnes : 1950 MR: [id number] V: [id number] EXAM DATE: ORDERING PHYSICIAN: DEBBI DOWNEY TECHNOLOGIST: Location: [facility] - [place] Patient: Shantell Barnes : 1950 Visit/Account:[id number] Date of Sevice: 10/06/2018 Portable chest, one view. HISTORY: Pneumonia. COMPARISON: 10/04/2018. EKG leads project on the chest. The endotracheal tube has been removed. The heart size is normal. The mediastinum is unremarkable. Pulmonary vessels are normal. Patchy and streaky opacities are pre sent in the mid lungs bilaterally and right lung base, slightly decreased. The pleural surfaces are unremarkable. Degenerative changes are present in the spine and shoulders. A healed fracture is pre sent in the left distal clavicle. Metal hardware is present in the cervical spine. IMPRESSION: Bilateral lung infiltrates, slightly decreased. Removal of endotracheal tube. Report Dictated By: Jimmie Middleton MD at 10/06/2018 9:07 AM Report E-Signed By: Jimmie Middleton MD at 10/06/2018 9:10 AM WSN:[email or web address]
[2018-10-06] MEDS: buPROPion XL 150 MG TABCR PO SCH ×2 (10:58→20:56)
--- NOTE | 2018-10-06 11:28 | Pharmacy Note ---
Vancomycin Management Note Vanco Dosing Note Vancomycin Management Note Vanco Dosing Note Pharmacy Services Pharmacokinetic Dosing Consult, Vancomycin Pharmacy has been consulted for dosing and monitoring of vancomycin for 68 year old female for bilateral pneumonia. Pertinent Past Medical History: Influenza A, Respiratory failure, Bilateral Pneumonia, COPD Additional Antimicrobials: Was started initially on Ceftriaxone and Azithromycin IV. Now on Azithromycin IV and Vancomycin. Vancomycin 1 gm IV q12h after load of 1.5 gm (Start 10/04/18 2300) Patient Information: Height (cm): 162.56 cm Actual Body Weight (ABW): 70 kg Pertinent Lab Tests WHITE BLOOD COUNT 13.9 SCR 0.5 (using 0.8 for calculations) TROUGH: 11.69 10/06/18 Culture Results: BLOOD NGTD Assessment: CrCl ~57 ml/min (IBW) Renal function is stable. Vancomycin Monitoring Assessment Goal Vancomycin Trough Level: 15-20 Plan: 1) Vancomycin 25 mg/kg loading dose (based on ABW): 1500 mg IV (~22 mg/kg) x 1 2) Vancomycin maintenance dose (based on ABW): increase to 1500 mg IV q12h 3) Vancomycin monitoring: trough level due 10/07/18 1000 Pharmacy will continue to monitor daily and adjust regimen as appropriate. Thank you for the consult. MARTINE HEMPHILL Oct 06, 2018 11:28
[2018-10-06] MEDS: VANCOMYCIN(*) 1 GM VIAL 1 GM, VANCOMYCIN (*) 0.5 GM VIAL 0.5 GM in NS(*) 0.9% 250 ML BA... IVPB SCH ×2 (11:46→23:05)
--- NOTE | 2018-10-06 14:06 | Hospitalist Progress Note ---
Subjective Progress Notes Subjective The patient does not like the Vapotherm due to the high flow. Physical Exam Vital Signs Date Time Temp Pulse Resp B/P (MAP) Pulse Ox O2 Delivery O2 Flow Rate FiO2 10/06/18 11:38 76 18 10/06/18 11:25 93 Vapotherm 40.0 100.0 10/06/18 06:30 146/94 (111) 10/06/18 06:00 98.8 Intake and Output 10/06/18 06:59 Intake Total 1699 ml Output Total 2482 ml Balance -783 ml Intake Oral 200 ml IV Total 1499 ml Output Urine Total 2482 ml # Bowel Movements 2 General Appearance: Alert, Awake, Other (Mild increased work of breathing.) Neuro: No Gross deficits Cardiovascular: Regular Rate and Rhythm Respiratory: Other (Bibasilar rhonchi. Clear anteriorly.) GI: Soft and Non-Tender Extremities: Warm, Perfused Psych: Appropriate Mood & Affect Result Diagram: 10/06/18 0505 10/06/18 0505 Assessment and Plan Problems: (1) Respiratory failure Status: Acute Assessment & Plan: She was intubated at admission. Extubated 10.04.2018. HHFNC initated to provide more humidity in attempt to loosen secretions. (2) Bilateral pneumonia Status: Acute Assessment & Plan: Her chest x-ray has shown bilateral infiltrates. She is on empiric treatment with IV ceftriaxone and azithromycin as well as the Tamiflu. BCx 10.03.2018 after she became febrile growing GPC which has been identified as Staph epi. Vancomycin was added to regimen and the patient has been afebrile since 10/04. (3) Influenza A Status: Acute Assessment & Plan: She is on treatment with Tamiflu. (4) Agitation Status: Acute Assessment & Plan: Resolved. She presented very confused, agitated and not following commands. It was likely secondary to hypoxia and acute illness (on top of an underlying dementia). A head CT was negative for acute issues. (5) COPD (chronic obstructive pulmonary disease) Status: Chronic Assessment & Plan: Chronically on Singulair and albuterol, which have been continued. She is receiving IV Methylprednisolone and scheduled nebulizer therapy. Weaning steroid. (6) Elevated troponin Status: Acute Assessment & Plan: Her troponin did increase due to demand ischemia, but her EKG did not show any acute findings. Her levels have trended downwards. (7) Multiple lacunar infarcts Status: Chronic Assessment & Plan: Chronically on ASA which will be continued. (8) Chronic pain syndrome Status: Chronic Assessment & Plan: She is chronically on Lyrica and hydromorphone. Those were held initially. Lyrica has been restarted, PRN morphine. Time Spent on Plan of Care: < 30 min Exam Sepsis Risk: No Definite Risk Problem Qualifiers (1) Respiratory failure: Chronicity: acute Respiratory failure complication: hypoxia Qualified Codes: J96.01 - Acute respiratory failure with hypoxia (2) Bilateral pneumonia: Pneumonia type: due to unspecified organism Lung location: unspecified part of lung Qualified Codes: J18.9 - Pneumonia, unspecified organism DEBBI DOWNEY MD Oct 06, 2018 14:06
[2018-10-06] MEDS: cefTRIAXone(*) 2 GM VIAL 2 GM in NS(*) 0.9% 100 ML ADDVANT BAG 100 ML IVPB SCH (17:50)
[2018-10-06] MEDS: PREGABALIN 150 MG CAPSULE PO SCH (20:56)
[2018-10-06] MEDS: AZITHROMYCIN(*) 500 MG 500 MG in NS(*) 0.9% 250 ML BAG 250 ML IVPB SCH (22:13)
[2018-10-07] VITALS (41 sets, daily range): BP systolic 104–175; BP diastolic 62–116
[2018-10-07] MEDS: NS(*) 0.9% 1000 ML BAG 1,000 ML IV PRN ×2 (03:14→15:13)
[2018-10-07 05:14] LABS: PLATELET COUNT, AUTOMATED 253 K/uL (150-450)
[2018-10-07] MEDS: ALBUTEROL/IPRATROPIUM 3 ML NEB NEB SCH ×3 (05:59→16:55)
--- NOTE | 2018-10-07 07:15 | RADIOLOGY IMAGING REPORT ---
FACILITY: PATIENT NAME: Shantell Barnes : 1950 MR: [id number] V: [id number] EXAM DATE: ORDERING PHYSICIAN: DEBBI DOWNEY TECHNOLOGIST: Location: [facility] - [place] Patient: Shantell Barnes : 1950 Visit/Account:[id number] Date of Sevice: 10/07/2018 EXAMINATION: Chest radiograph HISTORY: Pneumonia COMPARISON: October 06, 2018 FINDINGS: Frontal view obtained. Lines/tubes: None. Cardiomediastinal silhouette: Normal. Lungs/pleura: Small patches of consolidation in the bilateral mid lungs similar to prior. Bony structures/chest wall: Chronic left clavicle fracture deformity. IMPRESSION: Small unchanged bilateral mid lung consolidative opacities concerning for multifocal pneumonia. Recommend follow-up radiographs in 2-3 weeks to ensure resolution. Report Dictated By: Galindo Vogel MD at 10/07/2018 7:10 AM Report E-Signed By: Galindo Vogel MD at 10/07/2018 7:12 AM WSN:[id number]
[2018-10-07] MEDS ORDERED: DIGOXIN 0.125 MG TAB PO SCH (09:00)
[2018-10-07] MEDS: LEVOTHYROXINE SOD 0.088 MG TAB PO SCH (09:27)
[2018-10-07] MEDS: buPROPion XL 150 MG TABCR PO SCH ×2 (09:28→21:04)
[2018-10-07] MEDS: ENOXAPARIN 40 MG/0.4ML SYR SC SCH (09:28)
[2018-10-07] MEDS: OSELTAMIVIR PHOS 75 MG CAP FT SCH ×2 (09:29→21:03)
[2018-10-07] MEDS: MONTELUKAST SODIUM 10 MG TAB PO SCH (09:29)
[2018-10-07] MEDS: methylPREDNIS SUCC 125 MG/2ML IVP SCH ×2 (09:29→21:04)
[2018-10-07] MEDS: ASPIRIN 81 MG CHEW PO SCH (09:30)
[2018-10-07] MEDS: PREGABALIN 150 MG CAPSULE PO SCH ×2 (09:30→21:03)
[2018-10-07] MEDS: PANTOPRAZOLE SOD 40 MG TABEC PO SCH (09:31)
--- NOTE | 2018-10-07 11:06 | Hospitalist Progress Note ---
Subjective Progress Notes Subjective She reports "maybe a little better, but I'm not sure". No fevers. Oxygen requirement has improved slightly. Physical Exam Vital Signs Date Time Temp Pulse Resp B/P (MAP) Pulse Ox O2 Delivery O2 Flow Rate FiO2 10/07/18 09:30 73 11 122/92 (102) 98 Vapotherm 25.0 95.0 10/07/18 08:00 98.4 Intake and Output 10/07/18 06:59 Intake Total 3594 ml Output Total 950 ml Balance 2644 ml Intake Oral 400 ml IV Total 3194 ml Output Urine Total 950 ml # Bowel Movements 2 General Appearance: Alert, Awake Cardiovascular: Regular Rate and Rhythm Respiratory: Other (scattered rhonchi ) GI: Soft and Non-Tender Extremities: Warm, Perfused Result Diagram: 10/07/1845710/07/18457 Assessment and Plan Problems: (1) Respiratory failure Status: Acute Assessment & Plan: She was intubated at admission. Extubated 10/04/2018. She has required high flow O2 and is showing some slight improvements. Continue to work on pulmonary toilet/secretion clearance.. (2) Bilateral pneumonia Status: Acute Assessment & Plan: Her chest x-ray has shown bilateral infiltrates. She is on empiric treatment with IV ceftriaxone and azithromycin as well as the Tamiflu. Blood cultures done 10/03/2018 after she became febrile. 1 of 2 cultures growing Staph epi. Vancomycin was added to regimen and the patient has been afebrile since 10/04. It is possible the Staph epi is a contaminant, but she has shown clinical improvement following addition of vancomycin. (3) Influenza A Status: Acute Assessment & Plan: She is on treatment with Tamiflu. (4) Agitation Status: Acute Assessment & Plan: Resolved. She presented very confused, agitated and not following commands. It was likely secondary to hypoxia and acute illness (on top of an underlying dementia). A head CT was negative for acute issues. (5) COPD (chronic obstructive pulmonary disease) Status: Chronic Assessment & Plan: Chronically on Singulair and albuterol, which have been continued. She is receiving IV Methylprednisolone and scheduled nebulizer therapy. Weaning steroid. (6) Elevated troponin Status: Acute Assessment & Plan: Her troponin did increase due to demand ischemia, but her EKG did not show any acute findings. Her levels have trended downwards. (7) Multiple lacunar infarcts Status: Chronic Assessment & Plan: Chronically on ASA which will be continued. (8) Chronic pain syndrome Status: Chronic Assessment & Plan: She is chronically on Lyrica and hydromorphone. Those were held initially. Lyrica has been restarted, PRN morphine. (9) UNSPECIFIED ATRIAL FIBRILLATION Status: Acute Assessment & Plan: She has had short-lived episodes of atrial fibrillation. She has been in sinus rhythm for more than 36hrs now. Will monitor. Stop digoxin. Exam Sepsis Risk: No Definite Risk Problem Qualifiers (1) Respiratory failure: Chronicity: acute Respiratory failure complication: hypoxia Qualified Codes: J96.01 - Acute respiratory failure with hypoxia (2) Bilateral pneumonia: Pneumonia type: due to unspecified organism Lung location: unspecified part of lung Qualified Codes: J18.9 - Pneumonia, unspecified organism LYLY DOWNEY MD Oct 07, 2018 11:06
--- NOTE | 2018-10-07 11:10 | Pharmacy Note ---
Vancomycin Management Note Vanco Dosing Note Pharmacy Services Pharmacokinetic Dosing Consult, Vancomycin Pharmacy has been consulted for dosing and monitoring of vancomycin for 68 year old female for bilateral pneumonia. Pertinent Past Medical History: Influenza A, Respiratory failure, Bilateral Pneumonia, COPD Additional Antimicrobials: Was started initially on Ceftriaxone and Azithromycin IV. Azithromycin was stopped 10/07/18. Vancomycin 1 gm IV q12h after load of 1.5 gm (Start 10/04/18 2300). Patient Information: Height (cm): 162.56 cm Actual Body Weight (ABW): 73 kg Pertinent Lab Tests WHITE BLOOD COUNT 14.5 SCR 0.5 (using 0.8 for calculations) TROUGH: 11.69 10/06/18, random 10/07/18 18.15 Culture Results: BLOOD NGTD Assessment: CrCl ~57 ml/min (IBW) Renal function is stable. Vancomycin Monitoring Assessment Goal Vancomycin Trough Level: 15-20 Plan: 1) Vancomycin 25 mg/kg loading dose (based on ABW): 1500 mg IV (~22 mg/kg) x 1 2) Vancomycin maintenance dose (based on ABW): increase to 1500 mg IV q12h 10/06, level went from 11.69 to 18.15 after two doses at 1.5G Q12H. Dose reduced to 1250mg Q12H as she is likely still on the increase after only two doses at 1500mg. 3) Vancomycin monitoring: trough level due 10/08/18 1000 Pharmacy will continue to monitor daily and adjust regimen as appropriate. Thank you for the consult. CHINMAY LARSEN Oct 07, 2018 11:10
[2018-10-07] MEDS: VANCOMYCIN(*) 1 GM VIAL 1 GM, VANCOMYCIN (*) 0.5 GM VIAL 0.25 GM in NS(*) 0.9% 250 ML B... IVPB SCH ×2 (11:33→23:03)
--- NOTE | 2018-10-07 15:29 | NUR ---
Physical Therapy Impression Pt. req maxA x 1 for EOB sitting. MaxA x2 for bed mobility and sit<>stand transfer for lateral stepping up bed. Req mechanical lift or EZ lift for future transfers. Pending medical progress, req further strengthening such as short-term subacute rehab prior to d/c home with [facility]. Physical Therapy Goals 1. modA for bed mobility. 2. modA for sit<>stand. 3. Gait x20' with least restrictive AD and Simi 4. Pt. to demonstrate ability to ascend/descend 1 stair with handrails, Simi. Patient's Goals
[2018-10-07] MEDS: cefTRIAXone(*) 2 GM VIAL 2 GM in NS(*) 0.9% 100 ML ADDVANT BAG 100 ML IVPB SCH (18:12)
[2018-10-08] VITALS (25 sets, daily range): BP systolic 116–165; BP diastolic 84–120
[2018-10-08] MEDS: ALBUTEROL/IPRATROPIUM 3 ML NEB NEB SCH ×3 (05:07→16:51)
[2018-10-08 05:24] LABS: PLATELET COUNT, AUTOMATED 248 K/uL (150-450)
[2018-10-08] MEDS: LEVOTHYROXINE SOD 0.088 MG TAB PO SCH (05:38)
[2018-10-08] MEDS: NS(*) 0.9% 1000 ML BAG 1,000 ML IV PRN ×2 (05:38→17:37)
[2018-10-08] MEDS: ACETAMINOPHEN(*)1000 MG/100 ML 100 ML IVPB PRN (05:42)
[2018-10-08] MEDS: PREGABALIN 150 MG CAPSULE PO SCH ×2 (09:16→21:09)
[2018-10-08] MEDS: PANTOPRAZOLE SOD 40 MG TABEC PO SCH (09:16)
[2018-10-08] MEDS: buPROPion XL 150 MG TABCR PO SCH ×2 (09:16→21:09)
[2018-10-08] MEDS: OSELTAMIVIR PHOS 75 MG CAP FT SCH ×2 (09:17→21:08)
[2018-10-08] MEDS: methylPREDNIS SUCC 125 MG/2ML IVP SCH ×2 (09:17→21:09)
[2018-10-08] MEDS: ASPIRIN 81 MG CHEW PO SCH (09:17)
[2018-10-08] MEDS: MONTELUKAST SODIUM 10 MG TAB PO SCH (09:18)
[2018-10-08] MEDS: ENOXAPARIN 40 MG/0.4ML SYR SC SCH (09:18)
--- NOTE | 2018-10-08 09:55 | Hospitalist Progress Note ---
Subjective Progress Notes Subjective This patient was admitted for influenza and respiratory failure. She had no acute events overnight. Patient Complains of: Cardiovascular: No: Chest Pain Respiratory: No: Shortness of Breath Physical Exam Vital Signs Date Time Temp Pulse Resp B/P (MAP) Pulse Ox O2 Delivery O2 Flow Rate FiO2 10/08/18 08:30 95 Vapotherm 25.0 95.0 10/08/18 08:30 86 10/08/18 08:00 22 153/89 (110) 10/08/18 06:00 98.8 Intake and Output 10/08/18 07:00 Intake Total 2859 ml Output Total 1900 ml Balance 959 ml Intake Oral 200 ml IV Total 2659 ml Output Urine Total 1900 ml Cardiovascular: Regular Rate and Rhythm Respiratory: Clear to Auscultation Result Diagram: 10/08/18 0508 10/08/18 0508 Assessment and Plan Problems: (1) Respiratory failure Status: Acute Assessment & Plan: She was intubated at admission. Extubated on 10/04/2018. She has required high flow O2 and is showing some slight improvements. (2) Bacteremia due to Staphylococcus epidermidis Assessment & Plan: She did have a fever on 10/03. A culture from that time grew Staphylococcus epidermidis. Vancomycin was added and her fever resolved. (3) Bilateral pneumonia Status: Acute Assessment & Plan: Her chest x-ray has shown bilateral infiltrates. She was on empiric treatment with IV ceftriaxone and azithromycin. She has completed a full course of both medications. (4) Influenza A Status: Acute Assessment & Plan: She completed a course of Tamiflu. (5) Agitation Status: Acute Assessment & Plan: Resolved. She presented very confused, agitated and not following commands. It was likely secondary to hypoxia and acute illness (on top of an underlying dementia). A head CT was negative for acute issues. (6) COPD (chronic obstructive pulmonary disease) Status: Chronic Assessment & Plan: Chronically on Singulair and albuterol, which have been co ntinued. She remains on IV steroids. (7) Elevated troponin Status: Acute Assessment & Plan: Her troponin did increase due to demand ischemia, but her EKG did not show any acute findings. Her levels have trended downwards. (8) Multiple lacunar infarcts Status: Chronic Assessment & Plan: Chronically on ASA which will be continued. (9) Chronic pain syndrome Status: Chronic Assessment & Plan: She is chronically on Lyrica and hydromorphone. Those were held initially. Lyrica has been restarted, PRN morphine. (10) UNSPECIFIED ATRIAL FIBRILLATION Status: Acute Assessment & Plan: She has had short-lived episodes of atrial fibrillation. She has been in sinus rhythm for more than 36hrs now. Exam Sepsis Risk: No Definite Risk Problem Qualifiers (1) Respiratory failure: Chronicity: acute Respiratory failure complication: hypoxia Qualified Codes: J96.01 - Acute respiratory failure with hypoxia (2) Bilateral pneumonia: Pneumonia type: due to unspecified organism Lung location: unspecified part of lung Qualified Codes: J18.9 - Pneumonia, unspecified organism MARGARITO CLEANING DO Oct 08, 2018 09:55
[2018-10-08] MEDS: VANCOMYCIN(*) 1 GM VIAL 1 GM, VANCOMYCIN (*) 0.5 GM VIAL 0.25 GM in NS(*) 0.9% 250 ML B... IVPB SCH ×2 (11:26→23:28)
--- NOTE | 2018-10-08 11:55 | Medical Nutrition Therapy ---
Nutrition Anthropometrics Height (Inches): 64.00 Height (Calculated Centimeters: 162.123475 Weight (Pounds): 161 Weight (Calculated Kilograms): 73.170 BMI: 26.4 Kalyan Nutrition Score: Probably Inadequate Kalyan Nutrition Risk Score: 13 Dietary Referral Nutrition Risk Factors: Nutrition Risk Comment: Nutritional Diagnosis Nutritional Risk Acuity 2: Pr Appetite > 3d, Swallowing Problem Nutritional Risk Acuity 3: GERD Past Medical History: COPD, dementia, hypothyroid, GERD, multiple lacunar infarcts, chronic pain syndrome Nutritional Acuity: 2-Moderate Nutrition Diagnosis: Swallowing Difficulties Nutrition Etiology: Physiological Causes Nutrition Problem/Etiology/Sym: Swallowing difficulites r/t hx CVA AEB dysphagia 2 diet. Energy Requirement: 1525 (M St JeorX 1.1X1.3) Protein Requirement: 66 (1g protein/kg) Fluid Requirement: 1500 (kgX25) Diet Type: Dysphagia Stage 2 Nutrition Intervention: Cont diet as ordered, Incr diet as tolerated Additional Diet Restrictions: OFFER NUTR SUPPLMENT + PUT PROTEIN POWDER IN APPROPRIATE FOODS Nutrition Monitoring & Eval Nutrition Goals: Eat 75-100% Meal Nutrition Follow-Up: Fair Intake RD Patient Assessment Time: [address] Assessment Type: RD Re-Assessment Patient Nutrition Acuity: 2-Moderate Follow Up Date: Oct 13, 2018 Nutritional Comment: Pt admitted with confusion. Dx with respiratory failure, bilateral pneumonia, influenza A, and agitation. Hx of COPD, dementia, hypothyroid, GERD, multiple lacunar infarcts, and chronic pain syndrome. Pt on NPO diet day 1. Pt on enoxaparin and propofol. Propofol contains 1.1 kcal of fat/mL. If TPN is indicated, low fat TPN is recommended. Pt RBC of 3.9 and hgb of 4.05 are decreased. BUN of 23 is elevated. K of 3.2 is decreased while Cl of 108 is elevated. Random glucose of 145 is slightly elevated. Albumin of 2.8 and total protein of 5.1 are decreased. Troponin is icreased at 0.454, a marker for cardiac muscle damage. Monitor for progression of diet, or TPN. -AKG 10/01 Pt remains intubated and sedated with propofol (1.1kcal/mL). Pt diet progressed to TF diet as of morning of 10/01. Recommend low fat TF. Pt also taking enoxaparin. Pt RBC are still decreased at 3.81 as is Hgb of 11.9. BUN is elevated at 25. Random glucose of 128 is slightly increased. Ca is decreased at 7.7 Troponin I has improved from 0.454 to 0.365. Monitor for TF tolerance. TF Jevity at 1166 mLK/day will meet 78% of kcal needs, 100% of protein needs, while limiting lipids due to propofol. Recommend rate of 9.7mL/hr to start with goal rate of 48.5mL/hr. -AKG 10/02: Pt on tube feeding diet day 1. Pt has elevated BUN (2.9), RBG (280), and troponin 1 (0.204) levels. Pt has decreased albumin (2.7). Current tube feeding meets 136% of kcal needs and 113% of protein needs. Recommend 55ml/hr of Jevity to meet 88% protein needs and 11% of kcal needs with current propofal. Monitor for progression of diet. -JJ 10/05: Pt experiencing 1+ pitting edema. Pt has decreased albumin (2.7) and creatinine (0.50). Pt has elevated BUN (23), RBG (150-221), and WBG (231-307). Pt currently on dysphagia 2 diet. Off tube feeding. Monitor for progression of diet. -JJ 10/08 Pt cont dysphagia 2 diet. Eating small amounts. Alb 2.5. Will offer nutr supplment to increase kcal and protein intake. Wt up 10% from admission, possibly r/t IV fluids. Will cont to monitor and encourage intake. OSMANY MIGUEL Oct 08, 2018 11:55
[2018-10-08] MEDS ORDERED: BUPR-474 PO (21:14)
[2018-10-08] MEDS ORDERED: DILTIAZEM HCL 125 MG/25 ML SDV 125 MG in NS(*) 0.9% 100 ML BAG 100 ML IV ONE (21:25)
[2018-10-09] VITALS (27 sets, daily range): BP systolic 95–159; BP diastolic 79–124
[2018-10-09] MEDS: ALBUTEROL/IPRATROPIUM 3 ML NEB NEB SCH ×3 (05:07→17:13)
[2018-10-09] MEDS: LEVOTHYROXINE SOD 0.088 MG TAB PO SCH (05:42)
[2018-10-09] MEDS: NS(*) 0.9% 1000 ML BAG 1,000 ML IV PRN ×2 (05:42→20:01)
[2018-10-09] MEDS ORDERED: ACETAMINOPHEN 325 MG TAB PO PRN (08:00)
--- NOTE | 2018-10-09 08:08 | Hospitalist Progress Note ---
Subjective Progress Notes Subjective She reports feeling improved. O2 requirement down slightly. She has had very short-lived episodes of a-fib. Physical Exam Vital Signs Date Time Temp Pulse Resp B/P (MAP) Pulse Ox O2 Delivery O2 Flow Rate FiO2 10/09/18 06:30 98.4 69 21 140/89 (106) 92 Vapotherm 15.0 90.0 Intake and Output 10/09/18 06:59 Intake Total 2681 ml Output Total 3300 ml Balance -619 ml Intake Oral 200 ml IV Total 2481 ml Output Urine Total 3300 ml # Bowel Movements 3 General Appearance: Alert, Awake Cardiovascular: Regular Rate and Rhythm Respiratory: Other (few scattered rhonchi) GI: Soft and Non-Tender Extremities: Warm, Perfused, Edema Result Diagram: 10/08/18 0508 10/08/18 0508 Assessment and Plan Problems: (1) Respiratory failure Status: Acute Assessment & Plan: She was intubated at admission. Extubated on 10/04/2018. She has required high flow O2 and is showing some continual slight improvements. (2) Bacteremia due to Staphylococcus epidermidis Assessment & Plan: She did have a fever on 10/03. One of two blood cultures from that time grew Staphylococcus epidermidis. Vancomycin was added and her fever resolved. Will plan on 14 days of therapy. Will remove all lines/caths if possible. (3) Bilateral pneumonia Status: Acute Assessment & Plan: Her chest x-ray has shown bilateral infiltrates. She was on empiric treatment with IV ceftriaxone and azithromycin. She has completed a full course of both medications. She is now on the IV vancomycin alone. (4) Influenza A Status: Acute Assessment & Plan: She completed a course of Tamiflu. (5) Agitation Status: Acute Assessment & Plan: Resolved. She presented very confused, agitated and not following commands. It was likely secondary to hypoxia and acute illness (on top of an underlying dementia). A head CT was negative for acute issues. (6) COPD (chronic obstructive pulmonary disease) Status: Chronic Assessment & Plan: Chronically on Singulair and albuterol, which have been continued. She will now be transitioned to oral steroids. (7) Elevated troponin Status: Acute Assessment & Plan: Her troponin did increase (possibly due to demand ischemia), but her EKG did not show any acute findings. (8) Multiple lacunar infarcts Status: Chronic Assessment & Plan: Chronically on ASA which will be continued. (9) Chronic pain syndrome Status: Chronic Assessment & Plan: She is chronically on Lyrica and hydromorphone. Those were held initially. Lyrica has been restarted, PRN morphine. (10) UNSPECIFIED ATRIAL FIBRILLATION Status: Acute Assessment & Plan: She has had short-lived episodes of atrial fibrillation. She is now in sinus rhythm. She is not currently on medication. Watch on telemetry. Exam Sepsis Risk: No Definite Risk Problem Qualifiers (1) Respiratory failure: Chronicity: acute Respiratory failure complication: hypoxia Qualified Codes: J96.01 - Acute respiratory failure with hypoxia (2) Bilateral pneumonia: Pneumonia type: due to unspecified organism Lung location: unspecified part of lung Qualified Codes: J18.9 - Pneumonia, unspecified organism LYLY DOWNEY MD Oct 09, 2018 08:07
[2018-10-09] MEDS: predniSONE 20 MG TAB PO SCH (09:38)
[2018-10-09] MEDS: MONTELUKAST SODIUM 10 MG TAB PO SCH (09:39)
[2018-10-09] MEDS: PREGABALIN 150 MG CAPSULE PO SCH ×2 (09:39→21:33)
[2018-10-09] MEDS: ASPIRIN 81 MG CHEW PO SCH (09:39)
[2018-10-09] MEDS: buPROPion XL 150 MG TABCR PO SCH ×2 (09:40→21:33)
[2018-10-09] MEDS: ENOXAPARIN 40 MG/0.4ML SYR SC SCH (09:40)
[2018-10-09] MEDS: PANTOPRAZOLE SOD 40 MG TABEC PO SCH (09:40)
[2018-10-09] MEDS: VANCOMYCIN(*) 1 GM VIAL 1 GM, VANCOMYCIN (*) 0.5 GM VIAL 0.25 GM in NS(*) 0.9% 250 ML B... IVPB SCH ×2 (11:08→22:46)
--- NOTE | 2018-10-09 11:46 | NUR ---
Occupational Therapy Impression Mod Ax2 bed mobility. Mod-Max Ax1 to maintain upright posture seated EOB x10 minutes. Mod Ax2 sit<>stand with RW x4. Mod Ax2 side steps to HOB. Decreased balance and follow through with v/c's. VSS throughout. Rec EZ lift for transfers at this time. Rec long-term rehab. Occupational Therapy Goals 1) Pt will be Min A UB/LB dressing. 2) Pt will be Min A grooming/hygiene. 3) Pt will be Min A toilet task. Patient's Goal
--- NOTE | 2018-10-09 14:06 | Pharmacy Note ---
Vancomycin Management Note Vanco Dosing Note Patient is on vancomycin for Bacteremia due to Staph. Epidermidis, pharmacy monitoring and adjusting doses. Antimicrobials: Vancomycin, Day 5 Pertinent Lab Tests VANCOMYCIN TROUGH 20.16 Culture Results: BLOOD (+) for Staph. Epidermitis Assessment: Renal function is Stable Vancomycin Monitoring Assessment: Goal Vancomycin Trough Level: 15-20 mcg/ml. Trough today is 20.16 mcg/ml. Continue current regimen. Plan: 1) Vancomycin dose: 1250 mg every 12 hours 2) Vancomycin monitoring: A level will be ordered for 10/10/18 at 1000 am 1 hour before the next dose Pharmacy will continue to monitor daily and adjust regimen as appropriate. ERNESTINA ISAACS V Oct 09, 2018 14:06
[2018-10-10] VITALS (7 sets, daily range): BP systolic 120–146; BP diastolic 69–94
[2018-10-10] MEDS: LEVOTHYROXINE SOD 0.088 MG TAB PO SCH (05:30)
[2018-10-10] MEDS: ALBUTEROL/IPRATROPIUM 3 ML NEB NEB SCH ×3 (05:44→17:05)
[2018-10-10 06:21] LABS: PLATELET COUNT, AUTOMATED 258 K/uL (150-450)
[2018-10-10] MEDS: NS(*) 0.9% 1000 ML BAG 1,000 ML IV PRN (06:41)
[2018-10-10] MEDS: ASPIRIN 81 MG CHEW PO SCH (09:06)
[2018-10-10] MEDS: buPROPion XL 150 MG TABCR PO SCH ×2 (09:06→21:21)
[2018-10-10] MEDS: PANTOPRAZOLE SOD 40 MG TABEC PO SCH (09:06)
[2018-10-10] MEDS: PREGABALIN 150 MG CAPSULE PO SCH ×2 (09:07→21:22)
[2018-10-10] MEDS: MONTELUKAST SODIUM 10 MG TAB PO SCH (09:07)
[2018-10-10] MEDS: predniSONE 20 MG TAB PO SCH (09:07)
[2018-10-10] MEDS: ENOXAPARIN 40 MG/0.4ML SYR SC SCH (09:14)
[2018-10-10] MEDS: VANCOMYCIN(*) 1 GM VIAL 1 GM, VANCOMYCIN (*) 0.5 GM VIAL 0.25 GM in NS(*) 0.9% 250 ML B... IVPB SCH ×2 (11:23→22:57)
--- NOTE | 2018-10-10 12:58 | NUR ---
Occupational Therapy Impression Max-Total Ax1-2 bed mobility. Seated EOB x15 minutes with Mod-Max A to maintain upright posture. Incorporating dynamic reaching as tolerated seated EOB. Mod A grooming supine in bed. VSS throughout. Rec long-term rehab. Occupational Therapy Goals 1) Pt will be Min A UB/LB dressing. 2) Pt will be Min A grooming/hygiene. 3) Pt will be Min A toilet task. Patient's Goal
[2018-10-10] MEDS ORDERED: KCL (*) 20 MEQ/100 ML PREMIX 100 ML IV SCH (14:45)
[2018-10-10] MEDS ORDERED: FUROSEMIDE 20 MG/2 ML VIAL IVP ONE ×2 (14:45→16:30)
--- NOTE | 2018-10-10 14:46 | Hospitalist Progress Note ---
Subjective Progress Notes Subjective O2 requirement still pretty high. She denies SOB, nausea or pain. Physical Exam Vital Signs Date Time Temp Pulse Resp B/P (MAP) Pulse Ox O2 Delivery O2 Flow Rate FiO2 10/10/18 14:03 93 Vapotherm 15.0 75.0 10/10/18 11:15 69 16 10/10/18 11:01 98.8 131/91 (104) Intake and Output 10/10/18 07:00 Intake Total 3623 ml Output Total 4550 ml Balance -927 ml Intake Oral 1070 ml IV Total 2553 ml Output Urine Total 4550 ml General Appearance: Alert, Awake, Other (mild increased work of breathing) Cardiovascular: Regular Rate and Rhythm Respiratory: Other (Insp basilar crackles on left) Extremities: Edema (trace pitting in shins) Integumentary: No Jaundice, No Cyanosis Result Diagram: 10/10/1851410/10/18514 Assessment and Plan Problems: (1) Respiratory failure Status: Acute Assessment & Plan: She was intubated at admission. Extubated on 10/04/2018. She has required high flow O2 and is showing some continual slight improvements. Weight up over 10kg from admission. Likely, she has some volume overload related to IVF, so will give a dose of Lasix and follow. Saline lock. (2) Weakness Status: Acute Assessment & Plan: Secondary to acute illness and deconditioning. Therapy is recommending long-term rehab. Will ask [facility] to help with placement. (3) Bacteremia due to Staphylococcus epidermidis Assessment & Plan: She did have a fever on 10/03. One of two blood cultures from that time grew Staphylococcus epidermidis. Lab reports that likely the culture that grew was from the femoral vein central line. Vancomycin was added on 10/04 and her fever resolved. Will plan on 14 days of therapy. Femoral vein central line removed on 10/09. (4) Bilateral pneumonia Status: Acute Assessment & Plan: Her chest x-ray has shown bilateral infiltrates. She was on empiric treatment with IV ceftriaxone and azithromycin. She has completed a full course of both medications. She is now on the IV vancomycin alone. (5) Influenza A Status: Acute Assessment & Plan: She completed a course of Tamiflu. (6) Agitation Status: Resolved Assessment & Plan: Resolved. She presented very confused, agitated and not following commands. It was likely secondary to hypoxia and acute illness (on top of an underlying dementia). A head CT was negative for acute issues. (7) COPD (chronic obstructive pulmonary disease) Status: Chronic Assessment & Plan: Chronically on Singulair and albuterol, which have been continued. She will now be transitioned to oral steroids. (8) Elevated troponin Status: Acute Assessment & Plan: Her troponin did increase (possibly due to demand ischemia), but her EKG did not show any acute findings. (9) Multiple lacunar infarcts Status: Chronic Assessment & Plan: Chronically on ASA which will be continued. (10) Chronic pain syndrome Status: Chronic Assessment & Plan: She is chronically on Lyrica and hydromorphone. Those were held initially. Lyrica has been restarted. (11) UNSPECIFIED ATRIAL FIBRILLATION Status: Acute Assessment & Plan: She has had short-lived episodes of atrial fibrillation. She is now in sinus rhythm. She is not currently on medication. Watch on telemetry. Exam Sepsis Risk: No Definite Risk Problem Qualifiers (1) Respiratory failure: Chronicity: acute Respiratory failure complication: hypoxia Qualified Codes: J96.01 - Acute respiratory failure with hypoxia (2) Bilateral pneumonia: Pneumonia type: due to unspecified organism Lung location: unspecified part of lung Qualified Codes: J18.9 - Pneumonia, unspecified organism WALKER CABRERA MD Oct 10, 2018 14:46
--- NOTE | 2018-10-10 15:48 | NUR ---
Physical Therapy Impression Pt requires Mod A for supine>sit, Mod A x2 for sit>supine, CGA-Mod A to maintain safe sitting at EOB, and Mod A to stand to RW. Recommend long-term rehab at [facility]. Physical Therapy Goals 1. modA for bed mobility. 2. modA for sit<>stand. 3. Gait x20' with least restrictive AD and Simi 4. Pt. to demonstrate ability to ascend/descend 1 stair with handrails, Simi. Patient's Goals
[2018-10-10] MEDS: KCL (*) 20 MEQ/100 ML PREMIX 100 ML IV SCH ×2 (16:23→18:40)
[2018-10-11 04:10] VITALS: BP 133/85
[2018-10-11] MEDS: ALBUTEROL/IPRATROPIUM 3 ML NEB NEB SCH ×3 (05:24→17:06)
[2018-10-11] MEDS: LEVOTHYROXINE SOD 0.088 MG TAB PO SCH (05:42)
[2018-10-11 07:42] VITALS: BP 134/87
[2018-10-11] MEDS: MONTELUKAST SODIUM 10 MG TAB PO SCH (10:01)
[2018-10-11] MEDS: buPROPion XL 150 MG TABCR PO SCH ×2 (10:01→21:17)
[2018-10-11] MEDS: PANTOPRAZOLE SOD 40 MG TABEC PO SCH (10:02)
[2018-10-11] MEDS: ASPIRIN 81 MG CHEW PO SCH (10:02)
[2018-10-11] MEDS: PREGABALIN 150 MG CAPSULE PO SCH ×2 (10:02→21:17)
[2018-10-11] MEDS: predniSONE 20 MG TAB PO SCH (10:02)
[2018-10-11] MEDS: ENOXAPARIN 40 MG/0.4ML SYR SC SCH (10:03)
[2018-10-11 10:27] LABS: PLATELET COUNT, AUTOMATED 238 K/uL (150-450)
[2018-10-11 11:22] VITALS: BP 126/87
--- NOTE | 2018-10-11 11:33 | Hospitalist Progress Note ---
Subjective Progress Notes Subjective This patient was admitted for respiratory failure and pneumonia. She had no acute events overnight. Patient Complains of: Cardiovascular: No: Chest Pain Respiratory: No: Shortness of Breath Physical Exam Vital Signs Date Time Temp Pulse Resp B/P (MAP) Pulse Ox O2 Delivery O2 Flow Rate FiO2 10/11/18 11:22 98.3 77 14 126/87 (100) 91 High-Flow Nasal Cannula 9.0 10/11/18 07:42 90.0 Intake and Output 10/11/18 07:00 Intake Total 1130 ml Output Total 4400 ml Balance -3270 ml Intake Oral 500 ml IV Total 630 ml Output Urine Total 4400 ml # Voids 5 # Bowel Movements 2 Cardiovascular: Regular Rate and Rhythm Respiratory: Clear to Auscultation Result Diagram: 10/11/18 1019 10/11/18 1019 Assessment and Plan Problems: (1) Respiratory failure Status: Acute Assessment & Plan: She was intubated at admission. Extubated on 10/04/2018. She has continued to require high amounts of oxygen and at times requires Vapotherm. Her weight is up from admission. We started scheduled Lasix today. (2) Weakness Status: Acute Assessment & Plan: Secondary to acute illness and deconditioning. Therapy is recommending long-term rehab. A discharge plan is pending. (3) Bacteremia due to Staphylococcus epidermidis Assessment & Plan: She did have a fever on 10/03. One of two blood cultures from that time grew Staphylococcus epidermidis. Lab reports that likely the culture that grew was from the femoral vein central line. Vancomycin was added on 10/04 and her fever resolved. Will plan on 14 days of therapy. Femoral vein central line removed on 10/09. (4) Bilateral pneumonia Status: Acute Assessment & Plan: Her chest x-ray did show bilateral infiltrates. She was on empiric treatment with IV ceftriaxone and azithromycin. She has completed a full course of both medications. She is now on the IV vancomycin alone. (5) Influenza A Status: Acute Assessment & Plan: She completed a course of Tamiflu. (6) Agitation Status: Resolved Assessment & Plan: Resolved. She presented very confused, agitated and not following commands. It was likely secondary to hypoxia and acute illness (on top of an underlying dementia). A head CT was negative for acute issues. (7) COPD (chronic obstructive pulmonary disease) Status: Chronic Assessment & Plan: Chronically on Singulair and albuterol, which have been continued. She will now be transitioned to oral steroids. (8) Elevated troponin Status: Acute Assessment & Plan: Her troponin did increase (possibly due to demand ischemia), but her EKG did not show any acute findings. (9) Multiple lacunar infarcts Status: Chronic Assessment & Plan: Chronically on ASA which will be continued. (10) Chronic pain syndrome Status: Chronic Assessment & Plan: She is chronically on Lyrica and hydromorphone. Those were held initially. Lyrica has been restarted. (11) UNSPECIFIED ATRIAL FIBRILLATION Status: Acute Assessment & Plan: She has had short-lived episodes of atrial fibrillation. She is now in sinus rhythm. She is not currently on medication. Watch on telemetry. Exam Sepsis Risk: No Definite Risk Problem Qualifiers (1) Respiratory failure: Chronicity: acute Respiratory failure complication: hypoxia Qualified Codes: J96.01 - Acute respiratory failure with hypoxia (2) Bilateral pneumonia: Pneumonia type: due to unspecified organism Lung location: unspecified part of lung Qualified Codes: J18.9 - Pneumonia, unspecified organism MARGARITO CLEANING DO Oct 11, 2018 11:33
[2018-10-11] MEDS: VANCOMYCIN(*) 1 GM VIAL 1 GM, VANCOMYCIN (*) 0.5 GM VIAL 0.5 GM in NS(*) 0.9% 250 ML BA... IVPB SCH (11:45)
[2018-10-11] MEDS ORDERED: FUROSEMIDE 40 MG/4 ML VIAL IVP SCH (14:00)
[2018-10-11 14:54] VITALS: BP 137/99
--- NOTE | 2018-10-11 15:51 | Pharmacy Note ---
Vancomycin Management Note Vanco Dosing Note Patient is on vancomycin for Bacteremia, pharmacy monitoring and adjusting doses. Antimicrobials: Vancomycin 1250 mg every 12 hours, Day 8 Azith 500mg Start 09/29, Stop 10/07 Ceftriaxone 2g Start 09/30, Stop 10/08 Tamiflu 30mg-75mg Start, 09/29 Stop 10/09 Pertinent Lab Tests WHITE BLOOD COUNT 9 NEUTROPHILS * BLOOD UREA NITROGEN * SCR 0.5 VANCOMYCIN TROUGH 12.34 VANCOMYCIN RANDOM * Culture Results: BLOOD Gram+ (Staph) URINE * SPUTUM * WOUND * Assessment: CrCl ~90ml/min Renal function is stable Vancomycin Monitoring Assessment: Goal Vancomycin Trough Level: 15-20 mcg/ml Plan: 1) Vancomycin dose: Increase dose to 1500 mg every 12 hours 2) Vancomycin monitoring: A level will be ordered for 10/12/18 @1000 1 hour before the 1100 dose. If level increases above goal range, consider extending dosing frequency to Q18H. Pharmacy will continue to monitor daily and adjust regimen as appropriate. CHINMAY LARSEN Oct 11, 2018 15:51
[2018-10-11 23:22] VITALS: BP 116/90
[2018-10-12] MEDS: VANCOMYCIN(*) 1 GM VIAL 1 GM, VANCOMYCIN (*) 0.5 GM VIAL 0.5 GM in NS(*) 0.9% 250 ML BA... IVPB SCH (00:24)
[2018-10-12 02:41] VITALS: BP 109/69
[2018-10-12] MEDS: LEVOTHYROXINE SOD 0.088 MG TAB PO SCH (05:46)
[2018-10-12] MEDS: ALBUTEROL/IPRATROPIUM 3 ML NEB NEB SCH ×3 (06:12→16:38)
[2018-10-12 08:36] VITALS: BP 118/77
[2018-10-12] MEDS: MONTELUKAST SODIUM 10 MG TAB PO SCH (10:03)
[2018-10-12] MEDS: predniSONE 20 MG TAB PO SCH (10:03)
[2018-10-12] MEDS: PANTOPRAZOLE SOD 40 MG TABEC PO SCH (10:03)
[2018-10-12] MEDS: buPROPion XL 150 MG TABCR PO SCH ×2 (10:03→20:59)
[2018-10-12] MEDS: ASPIRIN 81 MG CHEW PO SCH (10:03)
[2018-10-12] MEDS: ENOXAPARIN 40 MG/0.4ML SYR SC SCH (10:04)
[2018-10-12] MEDS: PREGABALIN 150 MG CAPSULE PO SCH ×2 (10:04→21:00)
--- NOTE | 2018-10-12 10:22 | RADIOLOGY IMAGING REPORT ---
FACILITY: [facility] PATIENT NAME: Shantell Barnes : 1950 MR: [id number] V: [id number] EXAM DATE: ORDERING PHYSICIAN: LYLY DOWNEY TECHNOLOGIST: Location: [facility] Patient: Shantell Barnes : 1950 Visit/Account:[id number] Date of Sevice: 10/12/2018 Technique: CHEST SINGLE AP HISTORY: increased O2 requirement Comparison studies: Chest radiograph October 07, 2018 FINDINGS: Diffuse fibrotic and interstitial lung markings are again noted. No pleural effusion. The cardiac silhouette is unchanged. IMPRESSION: 1. No significant interval change. Report Dictated By: Arturo Mascorro DO at 10/12/2018 10:14 AM Report E-Signed By: Arturo Mascorro DO at 10/12/2018 10:19 AM WSN:[id number]
--- NOTE | 2018-10-12 10:52 | NUR ---
Occupational Therapy Impression Mod A supine to sit with HOB raised. CGA<>Min A seated EOB to maintain upright posture. Mod Ax2 stand pivot with RW bed to BSC. Max Ax2 toileting. Ambulation with RW and close chair follow (see PT note). Improved tolerance for activity and balance this date. Rec long-term rehab. Occupational Therapy Goals 1) Pt will be Min A UB/LB dressing. 2) Pt will be Min A grooming/hygiene. 3) Pt will be Min A toilet task. Patient's Goal
--- NOTE | 2018-10-12 11:21 | Hospitalist Progress Note ---
Subjective Progress Notes Subjective No fever. Her O2 Requirement has been variable - up slightly today. Physical Exam Vital Signs Date Time Temp Pulse Resp B/P (MAP) Pulse Ox O2 Delivery O2 Flow Rate FiO2 10/12/18 11:05 92 18 10/12/18 11:00 95 High-Flow Nasal Cannula 8.0 10/12/18 08:36 99.0 118/77 (91) 10/11/18 07:42 90.0 Intake and Output 10/12/18 06:59 Intake Total 885 ml Balance 885 ml Intake Oral 350 ml IV Total 535 ml # Voids 9 General Appearance: Alert, Awake Cardiovascular: Regular Rate and Rhythm Respiratory: Other (Fairly clear with few sacttered rhonchi) GI: Soft and Non-Tender Extremities: Warm, Perfused Result Diagram: 10/11/18 1019 10/11/18 1019 Assessment and Plan Problems: (1) Respiratory failure Status: Acute Assessment & Plan: She was intubated at admission. Extubated on 10/04/2018. She has continued to require high amounts of oxygen and at times requires Vapotherm. Her weight is up from admission. We started scheduled Lasix and she has had some diuresis. (2) Weakness Status: Acute Assessment & Plan: Secondary to acute illness and deconditioning. Therapy is recommending long-term rehab. Working on potential discharge to [facility]. (3) Bacteremia due to Staphylococcus epidermidis Assessment & Plan: She did have a fever on 10/03. One of two blood cultures from that time grew Staphylococcus epidermidis. Lab reports that likely the culture that grew was from the femoral vein central line. Vancomycin was added on 10/04 and her fever resolved. Will plan on 14 days of therapy. Femoral vein central line removed. Will now transition to oral therapy as she has remained afebrile (levofloxacin). (4) Bilateral pneumonia Status: Acute Assessment & Plan: Her chest x-ray did show bilateral infiltrates. She was on empiric treatment with IV ceftriaxone and azithromycin. She has completed a full course of both medications. (5) Influenza A Status: Acute Assessment & Plan: She completed a course of Tamiflu. (6) Agitation Status: Resolved Assessment & Plan: Resolved. She presented very confused, agitated and not following commands. It was likely secondary to hypoxia and acute illness (on top of an underlying dementia). A head CT was negative for acute issues. (7) COPD (chronic obstructive pulmonary disease) Status: Chronic Assessment & Plan: Chronically on Singulair and albuterol, which have been continued. She will now be transitioned to oral steroids. (8) Elevated troponin Status: Acute Assessment & Plan: Her troponin did increase (possibly due to demand ischemia), but her EKG did not show any acute findings. (9) Multiple lacunar infarcts Status: Chronic Assessment & Plan: Chronically on ASA which will be continued. (10) Chronic pain syndrome Status: Chronic Assessment & Plan: She is chronically on Lyrica and hydromorphone. Those were held initially. Lyrica has been restarted. (11) UNSPECIFIED ATRIAL FIBRILLATION Status: Acute Assessment & Plan: She has had short-lived episodes of atrial fibrillation. She is now in sinus rhythm. She is not currently on medication. Watch on telemetry. Exam Sepsis Risk: No Definite Risk Problem Qualifiers (1) Respiratory failure: Chronicity: acute Respiratory failure complication: hypoxia Qualified Codes: J96.01 - Acute respiratory failure with hypoxia (2) Bilateral pneumonia: Pneumonia type: due to unspecified organism Lung location: unspecified part of lung Qualified Codes: J18.9 - Pneumonia, unspecified organism LYLY DOWNEY MD Oct 12, 2018 11:21
[2018-10-12] MEDS ORDERED: LEVOFLOXACIN 500 MG TAB PO SCH (11:25)
[2018-10-12 13:11] VITALS: BP_SYST 110; BP_SYST 118; BP_DIAS 76; BP_DIAS 77
[2018-10-12 19:54] VITALS: BP 99/70
[2018-10-12] MEDS ORDERED: MELATONIN 3 MG TAB PO SCH (21:00)
[2018-10-13 02:00] VITALS: BP 124/88
[2018-10-13] MEDS: ALBUTEROL/IPRATROPIUM 3 ML NEB NEB SCH ×2 (05:45→11:11)
[2018-10-13] MEDS: LEVOTHYROXINE SOD 0.088 MG TAB PO SCH (06:07)
[2018-10-13 06:09] LABS: PLATELET COUNT, AUTOMATED 249 K/uL (150-450)
[2018-10-13 08:05] VITALS: BP 111/75
[2018-10-13] MEDS ORDERED: FUROSEMIDE 20 MG/2 ML VIAL IVP SCH (09:00)
[2018-10-13] MEDS: buPROPion XL 150 MG TABCR PO SCH (09:04)
[2018-10-13] MEDS: ASPIRIN 81 MG CHEW PO SCH (09:05)
[2018-10-13] MEDS: PREGABALIN 150 MG CAPSULE PO SCH (09:05)
[2018-10-13] MEDS: PANTOPRAZOLE SOD 40 MG TABEC PO SCH (09:05)
[2018-10-13] MEDS: MONTELUKAST SODIUM 10 MG TAB PO SCH (09:05)
[2018-10-13] MEDS: predniSONE 20 MG TAB PO SCH (09:06)
[2018-10-13] MEDS: ENOXAPARIN 40 MG/0.4ML SYR SC SCH (09:19)
--- NOTE | 2018-10-13 10:10 | Medical Nutrition Therapy ---
Nutrition Anthropometrics Height (Inches): 64.00 Height (Calculated Centimeters: 162.649698 Weight (Pounds): 137 Weight (Calculated Kilograms): 62.142 BMI: 26.4 Kalyan Nutrition Score: Probably Inadequate Kalyan Nutrition Risk Score: 13 Dietary Referral Nutrition Risk Factors: Nutrition Risk Comment: Physical Findings Physical Appearance: Skin Appearance Skin Appearance: Edema Edema Location Modifier: Both Edema Location: Ankle Type of Edema: Degree of Edema: 1+ Gastrointestinal Symptoms GI Symtoms: Tube Present: OG Bowel Sounds: Recent Bowel Pattern: Stool Characteristics: Nutritional Diagnosis Nutritional Risk Acuity 2: Pr Appetite > 3d, Swallowing Problem Nutritional Risk Acuity 3: GERD Past Medical History: COPD, dementia, hypothyroid, GERD, multiple lacunar infarcts, chronic pain syndrome Nutritional Acuity: 2-Moderate Nutrition Diagnosis: Swallowing Difficulties Nutrition Etiology: Physiological Causes Nutrition Problem/Etiology/Sym: Swallowing difficulites r/t hx CVA AEB dysphagia 2 diet. Energy Requirement: 1525 (M St JeorX 1.1X1.3) Protein Requirement: 66 (1g protein/kg) Fluid Requirement: 1500 (kgX25) Diet Type: Dysphagia Stage 2 Nutrition Intervention: Cont diet as ordered, Incr diet as tolerated Additional Diet Restrictions: OFFER NUTR SUPPLMENT + PUT PROTEIN POWDER IN APPROPRIATE FOODS Nutrition Monitoring & Eval Nutrition Goals: Eat 50-100% Meal Nutrition Follow-Up: Fair Intake RD Patient Assessment Time: [address] Assessment Type: RD Re-Assessment Patient Nutrition Acuity: 2-Moderate Follow Up Date: Oct 17, 2018 Nutritional Comment: Pt admitted with confusion. Dx with respiratory failure, bilateral pneumonia, influenza A, and agitation. Hx of COPD, dementia, hypothyroid, GERD, multiple lacunar infarcts, and chronic pain syndrome. Pt on NPO diet day 1. Pt on enoxaparin and propofol. Propofol contains 1.1 kcal of fat/mL. If TPN is indicated, low fat TPN is recommended. Pt RBC of 3.9 and hgb of 4.05 are decreased. BUN of 23 is elevated. K of 3.2 is decreased while Cl of 108 is elevated. Random glucose of 145 is slightly elevated. Albumin of 2.8 and total protein of 5.1 are decreased. Troponin is icreased at 0.454, a marker for cardiac muscle damage. Monitor for progression of diet, or TPN. -AKG 3/ Pt remains intubated and sedated with propofol (1.1kcal/mL). Pt diet progressed to TF diet as of morning of 10/01. Recommend low fat TF. Pt also taking enoxaparin. Pt RBC are still decreased at 3.81 as is Hgb of 11.9. BUN is elevated at 25. Random glucose of 128 is slightly increased. Ca is decreased at 7.7 Troponin I has improved from 0.454 to 0.365. Monitor for TF tolerance. TF Jevity at 1166 mLK/day will meet 78% of kcal needs, 100% of protein needs, while limiting lipids due to propofol. Recommend rate of 9.7mL/hr to start with goal rate of 48.5mL/hr. -AKG 10/02: Pt on tube feeding diet day 1. Pt has elevated BUN (2.9), RBG (280), and troponin 1 (0.204) levels. Pt has decreased albumin (2.7). Current tube feeding meets 136% of kcal needs and 113% of protein needs. Recommend 55ml/hr of Jevity to meet 88% protein needs and 11% of kcal needs with current propofal. Monitor for progression of diet. -JJ 10/05: Pt experiencing 1+ pitting edema. Pt has decreased albumin (2.7) and creatinine (0.50). Pt has elevated BUN (23), RBG (150-221), and WBG (231-307). Pt currently on dysphagia 2 diet. Off tube feeding. Monitor for progression of diet. -JJ 10/08 Pt cont dysphagia 2 diet. Eating small amounts. Alb 2.5. Will offer nutr supplment to increase kcal and protein intake. Wt up 10% from admission, possibly r/t IV fluids. Will cont to monitor and encourage intake. BK 10/13: Pt discontinued from tube feeding. Pt refused 4 meals over the past 3 days. Pt is on dysphagia 2 diet consuming 50% of meals. Pt's albumin is low (2.8). -CARLA JERONIMO Oct 13, 2018 09:00
--- NOTE | 2018-10-13 11:51 | NUR ---
OCCUPATIONAL THERAPY Dressing Assistance: Maximum assistance Bathing Assistance: N/T with OT Home Assessment: Not Completed Feeding Assistance: Minimum assistance Feeding Specialized Equipment: May benefit from adapted feeding equipment (i.e. plate guard etc.) Toilet Use: Maximum Assistance, 2 person assist Verbalizes Needs: Yes Understands Precautions: Yes Cooperative: Yes Family Teaching: No Occupational Therapy Comment:
[2018-10-13 12:33] VITALS: BP 119/71
--- NOTE | 2018-10-13 12:54 | Hospitalist Depart ---
Discharge Summary Reason for Hosp/Final Diag: (1) Respiratory failure Status: Acute Hospital Course & Plan: She was intubated at admission. Extubated on 10/04/2018. Her respiratory status has slowly improved on 4L at discharge. (2) Weakness Status: Acute Hospital Course & Plan: Secondary to acute illness and deconditioning. Therapy is recommending long-term rehab. Discharge to [facility]. (3) Bacteremia due to Staphylococcus epidermidis Hospital Course & Plan: She did have a fever on 10/03. One of two blood cultures from that time grew Staphylococcus epidermidis. Lab reports that likely the c ulture that grew was from the femoral vein central line. Vancomycin was added on 10/04 and her fever resolved. Femoral vein central line removed. Complete 9 days therapy, guidance is 7-14 days. Will discontinue antibiotics at this time. (4) Bilateral pneumonia Status: Acute Hospital Course & Plan: Her chest x-ray did show bilateral infiltrates. She was on empiric treatment with IV ceftriaxone and azithromycin. She has completed a full course of both medications. (5) Influenza A Status: Acute Hospital Course & Plan: She completed a course of Tamiflu. (6) Agitation Status: Resolved Hospital Course & Plan: Resolved. She presented very confused, agitated and not following commands. It was likely secondary to hypoxia and acute illness (on top of an underlying dementia). A head CT was negative for acute issues. (7) COPD (chronic obstructive pulmonary disease) Status: Chronic Hospital Course & Plan: Chronically on Singulair and albuterol, which have been continued. Completed course of steroids. (8) Elevated troponin Status: Acute Hospital Course & Plan: Her troponin did increase (possibly due to demand ischemia), but her EKG did not show any acute findings. (9) Multiple lacunar infarcts Status: Chronic Hospital Course & Plan: Chronically on ASA which will be continued. (10) Chronic pain syndrome Status: Chronic Hospital Course & Plan: She is chronically on Lyrica and hydromorphone. Those were held initially. Lyrica has been restarted. (11) UNSPECIFIED ATRIAL FIBRILLATION Status: Acute Hospital Course & Plan: She has had short-lived episodes of atrial fibrillation. She is now in sinus rhythm. She is not currently on medication. Suspect this was due to acute illness, PCP to reevaluate need for anticoagulation. Departure Weight (Pounds): 137 Weight (Ounces): 5.0 Result Diagram: 10/13/1853510/13/18535 Condition: Improved Discharge Instructions Home Meds Active Scripts Fluticasone/Vilanterol (Breo Ellipta 200-25 Mcg INH) 1 Each Blst.w.dev, 1 PUFF PO QDAY, #3 INHALER 3 Refills Prov:JOANN BOSTON MD 10/02/18 Esomeprazole Magnesium (NEXIUM) 40 Mg Capsule.dr, 1 CAP PO QDAY, #90 CAP 3 Refills Prov:JOANN BOSTON MD 04/07/18 Montelukast Sodium (SINGULAIR) 10 Mg Tablet, 1 TAB PO QDAY, #30 TAB 11 Refills Prov:JOANN BOSTON MD 12/28/17 Levothyroxine Sodium (LEVOTHYROXINE SODIUM) 88 Mcg Tablet, 1 TAB PO DAILY, #90 TAB 4 Refills Prov:JOANN BOSTON MD 09/05/17 Guaifenesin (MUCINEX) 600 Mg Tablet.er, 600 MG PO BID PRN for CONGESTION, #180 TAB 3 Refills Prov:JOANN BOSTON MD 06/27/17 Reported Medications Bupropion Hcl (WELLBUTRIN XL) 300 Mg Tab.er.24h, 450 MG PO QDAY, TAB 10/08/18 Amitriptyline Hcl (AMITRIPTYLINE HCL) 100 Mg Tablet, 100 MG PO QHS, TAB 10/03/18 Diclofenac Sodium 1% Gel (VOLTAREN 1% GEL) 100 Gm Gel..gram., 2 G TOP BID 10/03/18 Pregabalin (LYRICA) 300 Mg Capsule, 300 MG PO BID, CAPSULE 07/10/18 Polyethylene Glycol 3350 (MIRALAX) 17 Gm Powd.pack, 17 GM PO DAILY, PKT 01/27/18 Linaclotide (LINZESS) 145 Mcg Capsule, 145 MCG PO DAILY, CAPSULE 01/27/18 Aspirin (ASPIR 81) 81 Mg Tablet.dr, 1 TAB PO DAILY, TAB 01/27/18 Multivitamin (DAILY MULTIPLE VITAMIN) 1 Each Tablet, 1 EACH PO DAILY 09/27/17 Ibuprofen (IBUPROFEN) 200 Mg Tablet, 2 TAB PO QID PRN for PRN, TAB 09/27/17 Bacillus Coagulans (Digestive Advantage) 250 Million Cell Tab.chew, 1 TAB PO PRN 12/28/16 Cholecalciferol (Vitamin D3) (VITAMIN D3) 5,000 Unit Tablet, 1 TAB PO DAILY 12/28/16 Loratadine (LORATADINE) 10 Mg Tablet, 1 TAB PO DAILY 12/28/16 Oxygen (OXYGEN) Inha, 2.5 L INH PRN, L 04/29/16 Discontinued Reported Medications Hydromorphone Hcl (HYDROMORPHONE HCL) 2 Mg Tablet, 2 MG PO Q8H 10/03/18 Bupropion Hcl (BUPROPION XL) 300 Mg Tab.er.24h, 300 MG PO BID, #10 TAB 09/27/17 Diet: Regular Activity: As Tolerated Special Instructions: Venous Thromboembolism Antithrombotics Is Pt On Any Antithrombotics?: No Problem Qualifiers (1) Respiratory failure: Chronicity: acute Respiratory failure complication: hypoxia Qualified Codes: J96.01 - Acute respiratory failure with hypoxia (2) Bilateral pneumonia: Pneumonia type: due to unspecified organism Lung location: unspecified part of lung Qualified Codes: J18.9 - Pneumonia, unspecified organism EUGENIA BUTTS DO Oct 13, 2018 12:54
--- NOTE | 2018-10-13 13:41 | NUR ---
PHYSICAL THERAPY INFORMATION TRANSFER SHEET BED MOBILITY: Moderate Assistance 1 person assist TRANSFERS: Moderate Assistance 2 person assist GAIT: 5 ' with RW and Moderate Assistance 1 person assist 2 person assist Verbal cues Weightbearing Status: STAIRS: with . EXERCISES: Verbalizes Needs: Yes Understands Directions Yes Cooperative: Yes Family Teaching: No Physical Therapy Comment:
== END 2018-10-13 14:20 | DRG 207 ==
LOC: ER 18:22 → ICU 20:30 → EDBEDREQ 20:31 → ICU 10-04 13:30 → MED 10-09 14:30
PROVIDERS: ADMIT Internal Medicine; ATTEND Internal Medicine
PROC: 5A1955Z Respiratory Ventilation, Greater than 96 Consecutive Hours (ICD-10-PCS; principal; 2018-09-29)
PROC: 0BH17EZ Insertion of Endotracheal Airway into Trachea, Via Natural or Artificial Opening (ICD-10-PCS; 2018-09-29)
DX: J96.01 Acute respiratory failure with hypoxia (principal); J15.20 Pneumonia due to staphylococcus, unspecified; J10.08 Influenza due to other identified influenza virus with other specified pneumonia; J44.0 Chronic obstructive pulmonary disease with (acute) lower respiratory infection; G89.4 Chronic pain syndrome; F03.90 Unspecified dementia, unspecified severity, without behavioral disturbance, psychotic disturbance, mood disturbance, and anxiety; E03.9 Hypothyroidism, unspecified; K21.9 Gastro-esophageal reflux disease without esophagitis; K27.7 Chronic peptic ulcer, site unspecified, without hemorrhage or perforation; I48.91 Unspecified atrial fibrillation; R53.1 Weakness; Z86.73 Personal history of transient ischemic attack (TIA), and cerebral infarction without residual deficits; Z88.0 Allergy status to penicillin
CPT/HCPCS: 36415; 36416; 36600; 70450; 71045; 74018; 80162; 80202; 82040; 82247; 82310; 82374; 82435; 82565; 82803; 82947; 82948; 83605; 83735; 83880; 84075; 84132; 84155; 84295; 84450; 84460; 84484; 84520; 85025; 87040; 87077; 87186; 87502; 93005; 94002; 94003; 94640; 94660; 94667; 94668; 94770; 96365; 96375; 97163; 97166; 99291; A4216; C1758; C9113; J0131; J0330; J0456; J0696; J1160; J1650; J1940; J2250; J2270; J2704; J2930; J3370; J3480; J3490; J7030; J7040; J7050; J7512; J7613

== ENCOUNTER → 2018-09-29 | Outpatient (CLI) | payer MEDICARE, MEDICAID ==
[~2018-09-29] MED LIST changes: +BUPR-474 PO; +DICL100G39 TOP
[2018-09-30 08:24] VITALS: BMI 22.7
== END ==
LOC: AMB 17:40
PROVIDERS: ATTEND Nurse Practitioner
DX: R41.82 Altered mental status, unspecified (principal); R06.03 Acute respiratory distress
CPT/HCPCS: A0425; A0427

== ENCOUNTER → 2018-10-20 | Outpatient (REF) | payer MEDICARE, MEDICAID ==
[2018-09-30 08:24] VITALS: BMI 22.7
[~2018-10-20] MED LIST changes: +BUPR-474 PO; +DICL100G39 TOP
[2018-10-20 09:59] LABS: PLATELET COUNT, AUTOMATED 240 K/uL (150-450)
== END ==
LOC: ZZLCC 09:51
PROVIDERS: ATTEND Nurse Practitioner Family
DX: I48.91 Unspecified atrial fibrillation (principal); E03.9 Hypothyroidism, unspecified; Z79.899 Other long term (current) drug therapy
CPT/HCPCS: 82040; 82247; 82310; 82374; 82435; 82565; 82947; 84075; 84132; 84155; 84295; 84439; 84443; 84450; 84460; 84480; 84520; 85025

== ENCOUNTER → 2018-10-30 | Outpatient (REF) | payer OTHER, MEDICARE, MEDICAID ==
[2018-09-30 08:24] VITALS: BMI 22.7
[2018-10-30 17:56] LABS: PLATELET COUNT, AUTOMATED 340 K/uL (150-450)
== END ==
LOC: ZZLCC 17:33
PROVIDERS: ATTEND Nurse Practitioner Family
DX: E03.9 Hypothyroidism, unspecified (principal); D64.9 Anemia, unspecified
CPT/HCPCS: 82040; 82247; 82310; 82374; 82435; 82565; 82728; 82947; 83540; 83550; 84075; 84132; 84155; 84295; 84443; 84450; 84460; 84520; 85025

== ENCOUNTER → 2018-10-31 | Outpatient (CLI) | payer OTHER, MEDICARE, MEDICAID ==
[2018-09-30 08:24] VITALS: BMI 22.7
--- NOTE | 2018-10-31 16:26 | RADIOLOGY IMAGING REPORT ---
FACILITY: [facility] - [place] PATIENT NAME: Shantell Barnes : 1950 MR: [id number] V: [id number] EXAM DATE: ORDERING PHYSICIAN: MICHELLE ROME TECHNOLOGIST: Location: [facility] [place] Patient: Shantell Barnes : 1950 Visit/Account:[id number] Date of Sevice: 10/31/2018 Technique: CHEST PA LAT HISTORY: Bilateral pneumonia Comparison studies: Chest radiograph October 12, 2018 FINDINGS: There is interval improved aeration of the lung dykes. Chronic findings are considered in cluding pulmonary hyperexpansion, increased interstitial lung markings and scarring. The cardiac keny houette is unchanged. IMPRESSION: 1. Improved aeration predominantly within the lung bases. 2. Chronic findings as above. Report Dictated By: Arturo Mascorro DO at 10/31/2018 4:18 PM Report E-Signed By: Arturo Mascorro DO at 10/31/2018 4:22 PM WSN:[id number]
== END ==
LOC: RAD 16:01
PROVIDERS: ATTEND Nurse Practitioner Family
DX: J18.9 Pneumonia, unspecified organism (principal)
CPT/HCPCS: 71046

== ENCOUNTER → 2018-11-10 | Outpatient (REF) | payer OTHER, MEDICARE, MEDICAID ==
[2018-09-30 08:24] VITALS: BMI 22.7
[2018-11-10 16:42] LABS: PLATELET COUNT, AUTOMATED 353 K/uL (150-450)
== END ==
PROVIDERS: ATTEND Nurse Practitioner Family
DX: R06.02 Shortness of breath (principal)
CPT/HCPCS: 82040; 82247; 82310; 82374; 82435; 82565; 82947; 84075; 84132; 84155; 84295; 84450; 84460; 84484; 84520; 85025; 85379

== ENCOUNTER → 2018-11-10 | Outpatient (CLI) | payer OTHER, MEDICARE, MEDICAID ==
[2018-09-30 08:24] VITALS: BMI 22.7
[~2018-11-10] MED LIST changes: +AZIT-1 PO; +IOPAMIDOL 76% 150 ML INFUS BTL 150 ML ONE; +NS(*) 0.9% 50 ML BAG 50 ML ONE
--- NOTE | 2018-11-10 21:00 | RADIOLOGY IMAGING REPORT ---
FACILITY: [facility] PATIENT NAME: Shantell Barnes : 1950 MR: [id number] V: [id number] EXAM DATE: ORDERING PHYSICIAN: JOANN BOSTON TECHNOLOGIST: Location: [facility] - [place] Patient: Shantell Barnes : 1950 Visit/Account:[id number] Date of Sevice: 11/10/2018 EXAMINATION: CTA of the chest with IV contrast HISTORY: Shortness of breath. COMPARISON: 09/25/2018. TECHNIQUE: Pulmonary embolus protocol - Thin-slice axial imaging of the chest was performed during maximal pulmonary arterial opacification with intravenous nonionic iodinated contrast. 3D coronal sla b MIPs and 2D reconstructions in the coronal and sagittal planes were performed to aid in pulmonary e mbolus detection. Mental Health Nurse images have been stored on PACS. CONTRAST: 75 mL of IV Isovue-370 One of the following dose optimization techniques was utilized in the performance of this exam: Autom ated exposure control; adjustment of the mA and/or kV according to the patient's size; or use of an i terative reconstruction technique. Specific details can be referenced in the facility's radiology C T exam operational policy. FINDINGS: CTA CHEST: Please note that this exam is optimized for assessment of the pulmonary arteries and is not intended as a diagnostic study of the thoracic aorta, coronary arteries or venous structures. Angiographic Findings: Pulmonary arteries: There is mild mixing artifact in the lobar pulmonary artery branch to the right l ower lobe. No other filling defects are identified in the main, right, left, lobar, segmental or visu alized sub-segmental branches of the pulmonary arterial system. Other vasculature: Mild calcified plaque of the aorta and at the origins of the great vessels. Mild coronary artery calcifications. Additional non-angiographic findings: Lungs / Pleura: Unchanged complete atelectasis of the right middle lobe. There is opacification of the airways in the right middle lobe. Scattered bronchial opacifications and bronchial wall thickenin g bilaterally. Severe pulmonary emphysema with upper lobe predominance. Scattered subsegmental atelec tasis. Unchanged 4 mm nodule in the anterior right lower lobe (image 224 of series 12). Unchanged 6 m m subpleural nodule in the left lower lobe (image 244 of series 12). Unchanged 3 mm subpleural nodule in the left lower lobe (image 275 of series 12). These pulmonary nodules appear unchanged since 2016 . Mediastinum / Stacey: Negative. Heart / Pericardium: Negative. Musculoskeletal / Body wall: Subacute healing fracture of the lateral right 10th rib. Chronic mild anterior wedge compression deformity of the T9 vertebral body, unchanged. Anterior fusion hardware in the cervical spine. Lymph node assessment: Negative. Lower neck: Negative. Upper abdomen: Negative. IMPRESSION: No evidence of pulmonary embolism. Severe pulmonary emphysema. There is bronchial wall thickening and opacification of multiple small airways suggestive of bronchit is with mucus in the airways. There is complete atelectasis of the right middle lobe which was presen t on the previous examination, but with increased opacification of the airways of the right middle lo be. Long-term stable small pulmonary nodules. No follow-up of these is recommended. Report Dictated By: Ab Smith MD at 11/10/2018 8:20 PM Report E-Signed By: Ab Smith MD at 11/10/2018 8:57 PM WSN:[id number]
== END ==
LOC: CT 19:08
PROVIDERS: ATTEND Nurse Practitioner Family
DX: J43.9 Emphysema, unspecified (principal); J98.11 Atelectasis
CPT/HCPCS: 71275; J7050; Q9967

== ENCOUNTER 2018-11-14 06:10 | Emergency (ER) | payer MEDICARE, MEDICAID ==
[2018-09-30 08:24] VITALS: Wt 58.1 kg
[~2018-11-14 06:10] MED LIST changes: -AZIT-1 PO; -IOPAMIDOL 76% 150 ML INFUS BTL 150 ML ONE; -NS(*) 0.9% 50 ML BAG 50 ML ONE
--- NOTE | 2018-11-14 06:17 | ER Report ---
History and Physical Time Seen By MD: 06:16 HPI/ROS CHIEF COMPLAINT: Trouble breathing HISTORY OF PRESENT ILLNESS: Patient was seen on September 29 for altered mental status low oxygen saturations and altered mental status. Patient was found to have low O2 sats; initially was treated with IV ketamine along with BiPAP and ultimately was intubated during hospital admission patient was found to have influenza A. she developed bilateral pneumonia which was treated with IV antibiotics. She did grow Staphylococcus epidermidis on one of 2 blood cultures that was obtained at that time. She completed a course of antibiotics and been doing well. However early last week patient began having a wet sounding cough without production. She was seen on November 10 for cough was diagnosed with bronchitis. She is currently not taking any antibiotics that she is aware of. She is continuing to wear oxygen at home short of breath with a cough. For this reason she comes to the emergency department for evaluation. She denies any fevers or chills. She denies any chest pressure. She denies any abdominal pain. REVIEW OF SYSTEMS: Constitutional: No fevers or chills Eyes: No discharge. ENT: No sore throat. Cardiovascular: No chest pain, no palpitations. Respiratory: Wet sounding cough, dyspnea Gastrointestinal: No abdominal pain, no vomiting. Genitourinary: No hematuria. Musculoskeletal: No back pain. Skin: No rashes. Neurological: No headache. Allergies: Coded Allergies: amoxicillin (Verified Allergy, Mild, 11/14/18) Home Meds Active Scripts Azithromycin (ZITHROMAX) 250 Mg Tablet, 1 TAB PO QDAY for 4 Days, #4 TAB 0 Refills next dose on 11/15/18 Prov:NICOLÁS GUARDADO MD 11/14/18 Levothyroxine Sodium (LEVOTHYROXINE SODIUM) 88 Mcg Tablet, 1 TAB PO DAILY, #90 TAB 4 Refills Prov:JOANN BOSTON MD 10/27/18 Fluticasone/Vilanterol (Breo Ellipta 200-25 Mcg INH) 1 Each Blst.w.dev, 1 PUFF PO QDAY, #3 INHALER 3 Refills Prov:JOANN BOSTON MD 10/02/18 Esomeprazole Magnesium (NEXIUM) 40 Mg Capsule.dr, 1 CAP PO QDAY, #90 CAP 3 Refills Prov:JOANN BOSTON MD 04/07/18 Montelukast Sodium (SINGULAIR) 10 Mg Tablet, 1 TAB PO QDAY, #30 TAB 11 Refills Prov:JOANN BOSTON MD 12/28/17 Guaifenesin (MUCINEX) 600 Mg Tablet.er, 600 MG PO BID PRN for CONGESTION, #180 TAB 3 Refills Prov:JOANN BOSTON MD 06/27/17 Reported Medications Bupropion Hcl (WELLBUTRIN XL) 300 Mg Tab.er.24h, 450 MG PO QDAY, TAB 10/08/18 Amitriptyline Hcl (AMITRIPTYLINE HCL) 100 Mg Tablet, 100 MG PO QHS, TAB 10/03/18 Diclofenac Sodium 1% Gel (VOLTAREN 1% GEL) 100 Gm Gel..gram., 2 G TOP BID 10/03/18 Linaclotide (LINZESS) 145 Mcg Capsule, 145 MCG PO DAILY, CAPSULE 01/27/18 Aspirin (ASPIR 81) 81 Mg Tablet.dr, 1 TAB PO DAILY, TAB 01/27/18 Multivitamin (DAILY MULTIPLE VITAMIN) 1 Each Tablet, 1 EACH PO DAILY 09/27/17 Ibuprofen (IBUPROFEN) 200 Mg Tablet, 2 TAB PO QID PRN for PRN, TAB 09/27/17 Bacillus Coagulans (Digestive Advantage) 250 Million Cell Tab.chew, 1 TAB PO PRN 12/28/16 Cholecalciferol (Vitamin D3) (VITAMIN D3) 5,000 Unit Tablet, 1 TAB PO DAILY 12/28/16 Loratadine (LORATADINE) 10 Mg Tablet, 1 TAB PO DAILY 12/28/16 Oxygen (OXYGEN) Inha, 2.5 L INH PRN, L 04/29/16 Discontinued Reported Medications Pregabalin (LYRICA) 300 Mg Capsule, 300 MG PO BID, CAPSULE 07/10/18 Polyethylene Glycol 3350 (MIRALAX) 17 Gm Powd.pack, 17 GM PO DAILY, PKT 01/27/18 Past Medical/Surgical History Patient was seen on September 29 for altered mental status low oxygen saturations and altered mental status. Patient was found to have low O2 sats; initially was treated with IV ketamine along with BiPAP and ultimately was intubated during hospital admission patient was found to have influenza A. she developed bilateral pneumonia which was treated with IV antibiotics. She did grow Staphylococcus epidermidis on one of 2 blood cultures that was obtained at that time. She completed a course of antibiotics Past medical history for dementia, history of lacunar infarcts, COPD, sleep apnea, peptic ulcer disease, fibromyalgia, hypothyroidism Hx Smoking: Yes (1/2-1PPD) Smoking Status: Former Smoker Exposure to Second Hand Smoke?: Yes Hx Substance Use Disorder: No Hx Alcohol Use: Yes Constitutional Vital Sign - Last 24 Hours 11/14/18 11/14/18 11/14/18 11/14/18 06:10 06:16 06:17 06:30 Temp 98.6 Pulse 88 95 Resp 18 B/P (MAP) 176/101 176/101 (126) 134/86 (102) Pulse Ox 81 O2 Delivery Room Air 11/14/18 11/14/18 11/14/18 11/14/18 06:40 06:53 06:53 06:59 Pulse 87 87 90 Resp 17 17 Pulse Ox 91 92 O2 Delivery Nasal Cannula Nasal Cannula O2 Flow Rate 3 3.0 11/14/18 11/14/18 11/14/18 11/14/18 07:00 07:05 07:06 07:30 Pulse 87 Resp 43 B/P (MAP) 131/70 (90) 115/74 (88) Pulse Ox 86 O2 Flow Rate 3.0 11/14/18 11/14/18 11/14/18 11/14/18 07:35 08:00 08:05 08:35 Pulse 82 82 86 Resp 8 21 15 B/P (MAP) 125/61 (82) Pulse Ox 90 88 94 O2 Delivery Nasal Cannula Nasal Cannula Nasal Cannula 11/14/18 11/14/18 11/14/18 11/14/18 08:36 08:36 08:40 08:43 Pulse 80 80 79 Resp 17 23 17 Pulse Ox 90 90 O2 Delivery Nasal Cannula Nasal Cannula O2 Flow Rate 3.0 11/14/18 09:00 B/P (MAP) 135/91 (106) Physical Exam General/Constitutional: Patient is awake, alert, frail, wearing oxygen no obvious respiratory distress Head: Normocephalic and atraumatic. Eyes: Conjunctival clear, Pupils are equal and reactive to light. Extraocular muscles are intact and symmetrical. Sclera are clear and anicteric. Ears:External canals are clear. Tympanic membranes are clear with normal landmarks and light reflex. Nares: No rhinorrhea or bleeding. Turbinates are pink and moist. Oropharyngeal: Mucous membranes are moist. There is no pharyngeal erythema or exudate. There are no palatal petechiae. Uvula is midline and symmetrical. Neck: Supple, no adenopathy. Cardiovascular: Heart is regular rate and rhythm without audible murmurs, rubs or gallops. Pulmonary: Lungs are noted for scattered rhonchi and wheezing with cough. Abdomen: Soft, nontender, no guarding or peritoneal signs. Extremities: No gross deformities, No peripheral cyanosis. Able to move all 4 extremities. Neuro: Alert and oriented X3, Skin: No rashes, skin is warm dry and well perfused. Medical Decision Making Data Points Result Diagram: 11/14/18 0700 11/14/18 0700 Laboratory Hematology Test 11/14/18 07:00 Red Blood Count 3.45 M/uL (4.17-5.56) Mean Corpuscular Volume 93.7 fL (80.0-96.0) Mean Corpuscular Hemoglobin 31.9 pg (26.0-33.0) Mean Corpuscular Hemoglobin Concent 34.0 g/dL (32.0-36.0) Red Cell Distribution Width 15.2 % (11.5-14.5) Mean Platelet Volume 7.2 fL (7.2-11.1) Neutrophils (%) (Auto) 76.6 % (39.4-72.5) Lymphocytes (%) (Auto) 10.7 % (17.6-49.6) Monocytes (%) (Auto) 12.2 % (4.1-12.4) Eosinophils (%) (Auto) 0.1 % (0.4-6.7) Basophils (%) (Auto) 0.4 % (0.3-1.4) Nucleated RBC Relative Count (auto) 0.0 /100WBC Neutrophils # (Auto) 5.2 K/uL (2.0-7.4) Lymphocytes # (Auto) 0.7 K/uL (1.3-3.6) Monocytes # (Auto) 0.8 K/uL (0.3-1.0) Eosinophils # (Auto) 0.0 K/uL (0.0-0.5) Basophils # (Auto) 0.0 K/uL (0.0-0.1) Nucleated RBC Absolute Count (auto) 0.00 K/uL Sodium Level 127 mmol/L (137-145) Potassium Level 3.8 mmol/L (3.5-5.0) Chloride Level 93 mmol/L (98-107) Carbon Dioxide Level 24 mmol/L (22-31) Blood Urea Nitrogen 19 mg/dl (7-18) Creatinine 0.60 mg/dl (0.52-1.04) Glomerular Filtration Rate Calc > 60.0 Random Glucose 112 mg/dl (75-110) Lactate 0.8 mmol/L (0.7-2.1) Calcium Level 9.2 mg/dl (8.4-10.2) Total Bilirubin 0.3 mg/dl (0.2-1.3) Aspartate Amino Transf (AST/SGOT) 21 U/L (0-35) Alanine Aminotransferase (ALT/SGPT) 24 U/L (0-56) Alkaline Phosphatase 60 U/L (0-126) Total Protein 6.3 g/dl (6.3-8.2) Albumin 4.2 g/dl (3.5-5.0) Chemistry Test 11/14/18 07:00 White Blood Count 6.7 k/uL (4.5-11.0) Red Blood Count 3.45 M/uL (4.17-5.56) Hemoglobin 11.0 g/dL (12.0-16.0) Hematocrit 32.3 % (34.0-47.0) Mean Corpuscular Volume 93.7 fL (80.0-96.0) Mean Corpuscular Hemoglobin 31.9 pg (26.0-33.0) Mean Corpuscular Hemoglobin Concent 34.0 g/dL (32.0-36.0) Red Cell Distribution Width 15.2 % (11.5-14.5) Platelet Count 285 K/uL (150-450) Mean Platelet Volume 7.2 fL (7.2-11.1) Neutrophils (%) (Auto) 76.6 % (39.4-72.5) Lymphocytes (%) (Auto) 10.7 % (17.6-49.6) Monocytes (%) (Auto) 12.2 % (4.1-12.4) Eosinophils (%) (Auto) 0.1 % (0.4-6.7) Basophils (%) (Auto) 0.4 % (0.3-1.4) Nucleated RBC Relative Count (auto) 0.0 /100WBC Neutrophils # (Auto) 5.2 K/uL (2.0-7.4) Lymphocytes # (Auto) 0.7 K/uL (1.3-3.6) Monocytes # (Auto) 0.8 K/uL (0.3-1.0) Eosinophils # (Auto) 0.0 K/uL (0.0-0.5) Basophils # (Auto) 0.0 K/uL (0.0-0.1) Nucleated RBC Absolute Count (auto) 0.00 K/uL Glomerular Filtration Rate Calc > 60.0 Lactate 0.8 mmol/L (0.7-2.1) Calcium Level 9.2 mg/dl (8.4-10.2) Total Bilirubin 0.3 mg/dl (0.2-1.3) Aspartate Amino Transf (AST/SGOT) 21 U/L (0-35) Alanine Aminotransferase (ALT/SGPT) 24 U/L (0-56) Alkaline Phosphatase 60 U/L (0-126) Total Protein 6.3 g/dl (6.3-8.2) Albumin 4.2 g/dl (3.5-5.0) EKG/Imaging EKG Interpretation EKG shows sinus rhythm with left axis deviation no significant ST segment or T- wave abnormalities noted. Monitor Interpretation: Normal Sinus Rhythm Imaging FACILITY: [facility] - [place] PATIENT NAME: Shantell Barnes : 1950 MR: [id number] V: [id number] EXAM DATE: ORDERING PHYSICIAN: NICOLÁS GUARDADO TECHNOLOGIST: Location: [facility] - [place] Patient: Shantell Barnes : 1950 Visit/Account:[id number] Date of Sevice: 11/14/2018 CHEST PA LAT Additional pertinent History: SOB. COMPARISON STUDIES: 10/31/2018 FINDINGS: Support lines and catheters: Oxygen tubing Lungs and Pleura: Centrilobular emphysematous changes in the lung apices. Chronic interstitial reticular lung changes seen in the mid to lower lung dykes similar in appearance and unchanged when compared to the previous chest x-ray from 10/31/2018. Increased opacification in the right lower lung medially with lateral film demonstrating what appears to be a right middle lobe infiltrate/consolidative change. Heart and vasculature: Negative. Stacey and Mediastinum: Negative. Bones and Chest wall: Negative. Upper Abdomen: Negative. IMPRESSION: 1. COPD with centrilobular emphysematous changes in lung apices. 2. Focal area of atelectasis/volume loss in the right middle lobe. Report Dictated By: Jan Ayers MD at 11/14/2018 7:48 AM Report E-Signed By: Jan Ayers MD at 11/14/2018 7:55 AM WSN:[id number] ED Course/Re-evaluation Clinical Indication for ER IV: IV Access ED Course plan at this time will be workup for respiratory infection. We'll check chest x- ray will check blood cultures CBC CMP and give DuoNeb breathing treatment. 11/14/2018 8:57:06 am patient with a suspected infiltrate on chest x-ray. We'll treat his pneumonia. We'll give IV dose of Rocephin and oral Zithromax. We'll discharge patient home. We will have her continue her oxygen and follow-up as an outpatient. Decision to Disposition Date: Nov 14, 2018 Decision to Disposition Time: 08:57 Depart Departure Latest Vital Signs Vital Signs Date Time Temp Pulse Resp B/P (MAP) Pulse Ox O2 Delivery O2 Flow Rate FiO2 11/14/18 09:00 135/91 (106) 11/14/18 08:43 79 17 11/14/18 08:40 90 Nasal Cannula 11/14/18 08:36 3.0 11/14/18 06:16 98.6 Core Temperature (Celsius): 37.1 Impression: Primary Impression: Pneumonia Additional Impression: Hyponatremia Condition: Improved Disposition: HOME OR SELF-CARE Referrals: JOANN BOSTON MD (PCP) 1 Week for recheck of sodium level New Scripts Azithromycin (ZITHROMAX) 250 Mg Tablet 1 TAB PO QDAY for 4 Days, #4 TAB 0 Refills next dose on 11/15/18 Prov: NICOLÁS GUARDADO MD 11/14/18 Patient Instructions: Community Acquired Pneumonia (DC), Hyponatremia (ED) Additional Instructions: take your antibiotics as directed until complete Albuterol inhaler: 1-2 puffs every 4-6 hours as needed for cough or shortness of breath wear your oxygen return if your symptoms worsen at anytime Problem Qualifiers Primary Impression: Pneumonia Pneumonia type: due to unspecified organism Laterality: unspecified laterality Lung location: unspecified part of lung Qualified Codes: J18.9 - Pneumonia, unspecified organism NICOLÁS GUARDADO MD Nov 14, 2018 06:17
[2018-11-14] MEDS ORDERED: ALBUTEROL/IPRATROPIUM 3 ML NEB NEB ONE ×2 (06:45→08:15)
--- NOTE | 2018-11-14 07:06 | EKG ---
FACILITY: [facility] - [place] PATIENT NAME: KIERA GARCIA : [id number] MR: [id number] V: [id number] EXAM DATE: ORDERING PHYSICIAN: NICOLÁS GUARDADO TECHNOLOGIST: Test Reason : SOB Blood Pressure : / mmHG Vent. Rate : 087 BPM Atrial Rate : 087 BPM P-R Int : 154 ms QRS Dur : 100 ms QT Int : 368 ms P-R-T Axes : 053 -75 062 degrees QTc Int : 442 ms Normal sinus rhythm Left axis deviation Abnormal ECG When compared with ECG of 02-OCT-2018 06:32, Sinus rhythm has replaced Atrial fibrillation Vent. rate has decreased BY 43 BPM Confirmed by Robert Chaudhary ([id number]) on 11/14/2018 7:56:27 AM Referred By: Confirmed By:Robert Liu
[2018-11-14 07:15] LABS: PLATELET COUNT, AUTOMATED 285 K/uL (150-450)
[2018-11-14] MEDS ORDERED: NS(*) 0.9% 500 ML BAG 500 ML IV ONE (07:25)
--- NOTE | 2018-11-14 07:58 | RADIOLOGY IMAGING REPORT ---
FACILITY: [facility] - [place] PATIENT NAME: Shantell Barnes : 1950 MR: [id number] V: [id number] EXAM DATE: ORDERING PHYSICIAN: NICOLÁS GUARDADO TECHNOLOGIST: Location: [facility] - [place] Patient: Shantell Barnes : 1950 Visit/Account:[id number] Date of Sevice: 11/14/2018 CHEST PA LAT Additional pertinent History: SOB. COMPARISON STUDIES: 10/31/2018 FINDINGS: Support lines and catheters: Oxygen tubing Lungs and Pleura: Centrilobular emphysematous changes in the lung apices. Chronic interstitial retic ular lung changes seen in the mid to lower lung dykes similar in appearance and unchanged when corie red to the previous chest x-ray from 10/31/2018. Increased opacification in the right lower lung medial ly with lateral film demonstrating what appears to be a right middle lobe infiltrate/consolidative ch hoa. Heart and vasculature: Negative. Stacey and Mediastinum: Negative. Bones and Chest wall: Negative. Upper Abdomen: Negative. IMPRESSION: 1. COPD with centrilobular emphysematous changes in lung apices. 2. Focal area of atelectasis/volume loss in the right middle lobe. Report Dictated By: Jan Ayers MD at 11/14/2018 7:48 AM Report E-Signed By: Jan Ayers MD at 11/14/2018 7:55 AM WSN:[id number]
[2018-11-14] MEDS ORDERED: AZITHROMYCIN 250 MG TAB PO ONE (08:15)
[2018-11-14] MEDS ORDERED: cefTRIAXone 1 GM VIAL IVP ONE (08:15)
[2018-11-14 09:00] VITALS: BP 135/91
[2018-11-14] MEDS ORDERED: AZIT-1 PO (09:00)
[2018-11-14] MEDS ORDERED: ALBUTEROL 8 GM INHALER INH ONE (09:05)
== END 2018-11-14 09:15 | disposition home or self-care (01) ==
LOC: ER 06:41
DX: J18.9 Pneumonia, unspecified organism (principal); E87.1 Hypo-osmolality and hyponatremia
CPT/HCPCS: 71046; 83605; 85025; 87040; 93005; 94640; 96361; 96374; 99284; J0696; J7040; J7620; Q0144; 82040; 82247; 82310; 82374; 82435; 82565; 82947; 84075; 84132; 84155; 84295; 84450; 84460; 84520

== ENCOUNTER → 2018-11-23 | Outpatient (CLI) | payer MEDICARE, MEDICAID ==
[2018-09-30 08:24] VITALS: BMI 22.7
[~2018-11-23] MED LIST changes: +AZIT-1 PO; +LEV112 PO
[2018-11-23 14:59] LABS: PLATELET COUNT, AUTOMATED 304 K/uL (150-450)
== END ==
LOC: LAB 14:37
PROVIDERS: ATTEND Emergency Medicine
DX: E03.9 Hypothyroidism, unspecified (principal); J18.9 Pneumonia, unspecified organism; R41.0 Disorientation, unspecified
CPT/HCPCS: 36415; 82040; 82247; 82310; 82374; 82435; 82565; 82607; 82947; 84075; 84132; 84155; 84295; 84450; 84460; 84520; 85025; 86140

== ENCOUNTER 2018-12-02 16:57 | Emergency (ER) | payer MEDICARE, MEDICAID ==
[2018-09-30 08:24] VITALS: Wt 56.7 kg
--- NOTE | 2018-12-02 17:12 | ER Report ---
History and Physical Time Seen By MD: 17:08 Hx. of Stated Complaint: patient was at [facility] and smashed hand and wrist between electric cart and wall HPI/ROS CHIEF COMPLAINT: Right hand injury HISTORY OF PRESENT ILLNESS: This is a 68-year-old female presents emergency department for right hand injury. Patient states that she was in the scooter at [facility], the patient was trying to maneuver the cart into the bathroom, and she got her right hand and wrist in between the scooter and the wall causing pain. No obvious deformities. Patient does have pain to the right wrist. CMS intact. No other complaints. No chest pain or shortness breath. REVIEW OF SYSTEMS: Respiratory: No cough, no dyspnea. Cardiovascular: No chest pain, no palpitations. Gastrointestinal: No vomiting, no abdominal pain. Musculoskeletal: As above. Allergies: Coded Allergies: amoxicillin (Verified Allergy, Mild, 11/14/18) Home Meds Active Scripts Levothyroxine Sodium (LEVOTHYROXINE SODIUM) 0.112 Mg Tab, 0.112 MG PO QDAY, #60 TAB Prov:JOANN BOSTON MD 11/23/18 Fluticasone/Vilanterol (Breo Ellipta 200-25 Mcg INH) 1 Each Blst.w.dev, 1 PUFF PO QDAY, #3 INHALER 3 Refills Prov:JOANN BOSTON MD 10/02/18 Esomeprazole Magnesium (NEXIUM) 40 Mg Capsule.dr, 1 CAP PO QDAY, #90 CAP 3 Refills Prov:JOANN BOSTON MD 04/07/18 Montelukast Sodium (SINGULAIR) 10 Mg Tablet, 1 TAB PO QDAY, #30 TAB 11 Refills Prov:JOANN BOSTON MD 12/28/17 Reported Medications Bupropion Hcl (WELLBUTRIN XL) 300 Mg Tab.er.24h, 450 MG PO QDAY, TAB 10/08/18 Amitriptyline Hcl (AMITRIPTYLINE HCL) 100 Mg Tablet, 100 MG PO QHS, TAB 10/03/18 Multivitamin (DAILY MULTIPLE VITAMIN) 1 Each Tablet, 1 EACH PO DAILY 09/27/17 Ibuprofen (IBUPROFEN) 200 Mg Tablet, 2 TAB PO QID PRN for PRN, TAB 09/27/17 Cholecalciferol (Vitamin D3) (VITAMIN D3) 5,000 Unit Tablet, 1 TAB PO DAILY 12/28/16 Loratadine (LORATADINE) 10 Mg Tablet, 1 TAB PO DAILY 12/28/16 Oxygen (OXYGEN) Inha, 2.5 L INH PRN, L 04/29/16 Discontinued Reported Medications Diclofenac Sodium 1% Gel (VOLTAREN 1% GEL) 100 Gm Gel..gram., 2 G TOP BID 10/03/18 Linaclotide (LINZESS) 145 Mcg Capsule, 145 MCG PO DAILY, CAPSULE 01/27/18 Aspirin (ASPIR 81) 81 Mg Tablet.dr, 1 TAB PO DAILY, TAB 01/27/18 Bacillus Coagulans (Digestive Advantage) 250 Million Cell Tab.chew, 1 TAB PO PRN 12/28/16 Discontinued Scripts Azithromycin (ZITHROMAX) 250 Mg Tablet, 1 TAB PO QDAY for 4 Days, #4 TAB 0 Refills next dose on 11/15/18 Prov:NICOLÁS GUARDADO MD 11/14/18 Guaifenesin (MUCINEX) 600 Mg Tablet.er, 600 MG PO BID PRN for CONGESTION, #180 TAB 3 Refills Prov:JOANN BOSTON MD 06/27/17 Past Medical/Surgical History The patient has a past medical and surgical history of CVA, dementia, occasional irregular heartbeats and occasional murmur, hypertension, asthma, emphysema, COPD, GERD, cholecystitis, hepatitis a, difficulty with urination, fibromyalgia, bilateral knee pain, shoulder pain, arthritis, osteoporosis, rib fractures, clavicle fracture, back pain, wears glasses, hard of hearing, psoriasis, depression, anxiety, back surgery, tonsillectomy. Reviewed Nurses Notes: Yes Hx Smoking: Yes (1/2-1PPD) Smoking Status: Former Smoker Exposure to Second Hand Smoke?: Yes Hx Substance Use Disorder: No Hx Alcohol Use: Yes Constitutional Vital Sign - Last 24 Hours 12/02/18 12/02/18 17:04 18:55 Temp 98.2 Pulse 89 85 Resp 16 16 B/P (MAP) 149/95 148/85 (106) Pulse Ox 97 92 O2 Delivery Nasal Cannula Nasal Cannula O2 Flow Rate 3 Physical Exam General Appearance: The patient is alert, has no immediate need for airway p rotection and no current signs of toxicity. Eyes: Pupils equal and round no injection. Respiratory: Chest is non tender, lungs are clear to auscultation. Cardiac: regular rate and rhythm. Gastrointestinal: Abdomen is soft and non tender, no masses, bowel sounds normal. Musculoskeletal: Neck: Neck is supple and non tender. Extremities Examination of the Right hand reveals no acute deformity. The patient is able to give a thumbs up sign, is able to make an okay sign, and is able to AB duct the fingers. Sensation is intact over the dorsal 1st web space, the volar aspect of the 2nd finger, and the volar aspect of the 5th finger. Capillary refill is brisk. Pain to the distal forearm and generalized wrist pain. Skin: No rashes or lesions. DIFFERENTIAL DIAGNOSIS: After history and physical exam differential diagnosis was considered for contusion, fracture, subluxation, infection. Medical Decision Making EKG/Imaging Imaging PATIENT NAME: Shantell Barnes : 1950 MR: [id number] V: [id number] EXAM DATE: ORDERING PHYSICIAN: HARDEEP MENDOZA TECHNOLOGIST: Location: [facility] - [place] Patient: Shantell Barnes : 1950 Visit/Account:[id number] Date of Sevice: 12/02/2018 EXAMINATION: Right wrist 3 views Right forearm 2 views HISTORY: Pain. Injury. Fall. COMPARISON: None. FINDINGS: Right wrist: Oblique fracture of the distal right ulnar diametaphysis, with slight cortical step-off along the fracture margin measuring 1 mm. The distal right radius appears intact, without visualized fracture. Normal alignment at the radiocarpal joint. The carpal bones appear radiographically intact, without evidence of fracture. There are advanced chronic degenerative changes at the first CMC joint at the base of the thumb. Generalized osteopenia. Soft tissue swelling surrounds the right wrist. Right forearm: Distal right ulnar fracture again noted, with minimal displacement. The proximal radius and ulna appear radiographically intact, without evidence of additional fracture. Normal alignment at the elbow. IMPRESSION: 1. Minimally displaced oblique fracture of the distal right ulnar shaft. 2. No other acute osseous findings along the right forearm or at the right wrist. 3. 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 4. Osteopenia. Report Dictated By: Daniel Martinez MD at 12/02/2018 6:26 PM Report E-Signed By: Daniel Martinez MD at 12/02/2018 6:30 PM [id number] ED Course/Re-evaluation ED Course Patient was admitted to room. A history of physical were obtained. Differential diagnoses were considered. An x-ray of the right forearm showing a nondisplaced fracture of the distal ulna. Reviewed results with the patient is placed in a sugar tong, encouraged to follow-up with [facility] early next week for reevaluation. Patient expressed understanding, she was given tramadol in the ER. Patient and no other questions or concerns at this time and discharged home. Decision to Disposition Date: December 02, 2018 Decision to Disposition Time: 18:38 Depart Departure Latest Vital Signs Vital Signs Date Time Temp Pulse Resp B/P (MAP) Pulse Ox O2 Delivery O2 Flow Rate FiO2 12/02/18 18:55 85 16 148/85 (106) 92 Nasal Cannula 3 12/02/18 17:04 98.2 Core Temperature (Celsius): 37.1 Impression: Primary Impression: Fracture of forearm, distal, right, closed Condition: Improved Disposition: HOME OR SELF-CARE Referrals: JOANN BOSTON MD (PCP) LAYNE MCGILL MD, MARK MD 5 Days Patient Instructions: Arm Fracture in Adults (ED) Additional Instructions: Keep the splint on until you follow up with Dr. Castañeda from [facility]. Please call his office Tuesday to schedule a follow up appointment next week. Drink plenty of water. Get plenty of rest. Use the sling for comfort. Continue taking your regular medications. Return to the ED for any other concerns or worsening symptoms. Problem Qualifiers Primary Impression: Fracture of forearm, distal, right, closed Encounter type: initial encounter Qualified Codes: S52.91XA - Unspecified fracture of right forearm, initial encounter for closed fracture HARDEEP MENDOZA [employer] December 02, 2018 17:12
--- NOTE | 2018-12-02 18:33 | RADIOLOGY IMAGING REPORT ---
FACILITY: [facility] - [place] PATIENT NAME: Shantell Barnes : 1950 MR: [id number] V: [id number] EXAM DATE: ORDERING PHYSICIAN: HARDEEP MENDOZA TECHNOLOGIST: Location: [facility] - [place] Patient: Shantell Barnes : 1950 Visit/Account:[id number] Date of Sevice: 12/02/2018 EXAMINATION: Right wrist 3 views Right forearm 2 views HISTORY: Pain. Injury. Fall. COMPARISON: None. FINDINGS: Right wrist: Oblique fracture of the distal right ulnar diametaphysis, with slight cortical step-off along the fra cture margin measuring 1 mm. The distal right radius appears intact, without visualized fracture. Normal alignment at the radiocar pal joint. The carpal bones appear radiographically intact, without evidence of fracture. There are advanced chr onic degenerative changes at the first CMC joint at the base of the thumb. Generalized osteopenia. So ft tissue swelling surrounds the right wrist. Right forearm: Distal right ulnar fracture again noted, with minimal displacement. The proximal radius and ulna appe ar radiographically intact, without evidence of additional fracture. Normal alignment at the elbow. IMPRESSION: 1. Minimally displaced oblique fracture of the distal right ulnar shaft. 2. No other acute osseous findings along the right forearm or at the right wrist. 3. 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 4. Osteopenia. Report Dictated By: Daniel Martinez MD at 12/02/2018 6:26 PM Report E-Signed By: Daniel Martinez MD at 12/02/2018 6:30 PM [id number]
--- NOTE | 2018-12-02 18:34 | RADIOLOGY IMAGING REPORT ---
FACILITY: [facility] PATIENT NAME: Shantell Barnes : 1950 MR: [id number] V: [id number] EXAM DATE: ORDERING PHYSICIAN: HARDEEP MENDOZA TECHNOLOGIST: Location: [facility] [place] Patient: Shantell Barnes : 1950 Visit/Account:[id number] Date of Sevice: 12/02/2018 EXAMINATION: Right wrist 3 views Right forearm 2 views HISTORY: Pain. Injury. Fall. COMPARISON: None. FINDINGS: Right wrist: Oblique fracture of the distal right ulnar diametaphysis, with slight cortical step-off along the fra cture margin measuring 1 mm. The distal right radius appears intact, without visualized fracture. Normal alignment at the radiocar pal joint. The carpal bones appear radiographically intact, without evidence of fracture. There are advanced chr onic degenerative changes at the first CMC joint at the base of the thumb. Generalized osteopenia. So ft tissue swelling surrounds the right wrist. Right forearm: Distal right ulnar fracture again noted, with minimal displacement. The proximal radius and ulna appe ar radiographically intact, without evidence of additional fracture. Normal alignment at the elbow. IMPRESSION: 1. Minimally displaced oblique fracture of the distal right ulnar shaft. 2. No other acute osseous findings along the right forearm or at the right wrist. 3. 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 4. Osteopenia. Report Dictated By: Daniel Martinez MD at 12/02/2018 6:26 PM Report E-Signed By: Daniel Martinez MD at 12/02/2018 6:30 PM [id number]
[2018-12-02] MEDS ORDERED: traMADol 50 MG TAB PO ONE (18:40)
[2018-12-02] MEDS ORDERED: traMADol 50 MG TAB TH 2 TAB/BOTTLE PO ONE (18:40)
[2018-12-02 18:55] VITALS: BP 148/85
== END 2018-12-02 18:57 | disposition home or self-care (01) ==
LOC: ER 17:41
DX: S52.691A Other fracture of lower end of right ulna, initial encounter for closed fracture (principal)
CPT/HCPCS: 29105; 73090; 73110; 99284; A4565; A9270; C9399

== ENCOUNTER → 2019-03-18 | Outpatient (CLI) | payer MEDICARE, MEDICAID ==
[2018-09-30 08:24] VITALS: BMI 22.7
[~2019-03-18] MED LIST changes: -RANI-366 PO; +RANI-54 PO
[2019-03-18 17:03] LABS: PLATELET COUNT, AUTOMATED 341 K/uL (150-450)
== END ==
LOC: LAB 15:36
PROVIDERS: ATTEND Emergency Medicine
DX: E03.9 Hypothyroidism, unspecified (principal); M81.0 Age-related osteoporosis without current pathological fracture; J96.11 Chronic respiratory failure with hypoxia
CPT/HCPCS: 36415; 82040; 82247; 82306; 82310; 82374; 82435; 82565; 82947; 84075; 84132; 84155; 84295; 84443; 84450; 84460; 84520; 85025